=== PATIENT | female | born 1940 | race Caucasian/White ===

== ENCOUNTER 2016-06-30 15:47 | Emergency (ER) | payer MEDICARE, OTHER ==
[2016-06-30 15:54] VITALS: RESP 18
--- NOTE | 2016-06-30 16:34 | ED ---
Lower Extremity Injury HPI - General Chief Complaint: Extremity Injury, Lower Stated Complaint: Knee Swollen Time Seen by Provider: 06/30/16 15:58 Source: patient, RN notes reviewed Mode of arrival: wheelchair Limitations: no limitations - History of Present Illness Initial Comments: 76-year-old female presents emergency Department chief complaint left leg pain. Patient states that her last few days no trauma. Patient's concerned that she 's had prior DVTs, recent fractures. Patient denies any trauma this time. Patient states her left knee, calf region is painful worse with ambulation. Denies any swelling of her knee or redness. Patient denies any chest pain or shortness breath. Patient does not take any blood thinners though she states she takes 81 mg aspirin currently. Patient denies any paresthesias. Denies any back pain. - Related Data Home Medications Medication Instructions Recorded Confirmed Aspirin 81 mg PO DAILY 05/09/14 06/30/16 Enalapril [Vasotec] 20 mg PO DAILY 05/09/14 06/30/16 Simvastatin [Zocor] 40 mg PO HS 05/09/14 06/30/16 Atenolol [Tenormin] 25 mg PO HS 05/24/14 06/30/16 Cholecalciferol [Vitamin D3] 1,000 unit PO HS 02/11/16 06/30/16 Levothyroxine Sodium [Synthroid] 50 mcg PO DAILY 02/11/16 06/30/16 Famotidine 40 mg PO HS 02/12/16 06/30/16 HYDROcodone/APAP 5-325MG [[place] 1 tab PO Q6HR PRN 06/30/16 06/30/16 5-325] amLODIPine [Norvasc] 2.5 mg PO HS 06/30/16 06/30/16 Previous Rx's Medication Instructions Recorded Baclofen [Lioresal] 10 mg PO BID tab 02/15/16 Dextroamphetamine/Amphetamine 20 mg PO BID #60 tablet 02/15/16 [Adderall] Ipratropium-Albuterol Nebulize 3 ml INHALATION RT-QID PRN #0 02/15/16 [Duoneb 0.5 mg-3 mg/3 ml Soln] ampul.neb Allergies Allergy/AdvReac Type Severity Reaction Status Date / Time No Known Allergies Allergy Verified 06/30/16 17:25 Review of Systems ROS Statement: Those systems with pertinent positive or pertinent negative responses have been documented in the HPI. ROS Other: All systems not noted in ROS Statement are negative. Past Medical History Past Medical History: Cancer, Diabetes Mellitus, Deep Vein Thrombosis (DVT), Hyperlipidemia, Hypertension Additional Past Medical History / Comment(s): CLL/SLL, narcolepsy History of Any Multi-Drug Resistant Organisms: None Reported Past Surgical History: Orthopedic Surgery Additional Past Surgical History / Comment(s): right armpit lymph removed 03/01 the size of a golf ball. Past Anesthesia/Blood Transfusion Reactions: No Reported Reaction Past Psychological History: No Psychological Hx Reported Smoking Status: Current every day smoker Past Alcohol Use History: None Reported Past Drug Use History: None Reported - Past Family History Mother Family Medical History: Diabetes Mellitus Father Family Medical History: Cancer Additional Family Medical History / Comment(s): lung cancer. Sister(s) Family Medical History: CVA/TIA (Patient had 4 sisters one of the Sr. at age of 42 from a CVA the other one at the age of 89.) Brother(s) Family Medical History: No Reported History (Patient has one brother no major medical problems) Son(s) Family Medical History: No Reported History (Patient has 4 sons no major medical problems) Daughter(s) Family Medical History: No Reported History (Patient has one daughter no major medical problems) General Exam Limitations: no limitations General appearance: alert, in no apparent distress Head exam: Present: atraumatic, normocephalic, normal inspection Neck exam: Present: normal inspection, full ROM. Absent: tenderness, meningismus, lymphadenopathy Respiratory exam: Present: normal lung sounds bilaterally. Absent: respiratory distress, wheezes, rales, rhonchi, stridor Cardiovascular Exam: Present: regular rate, normal rhythm, normal heart sounds. Absent: systolic murmur, diastolic murmur, rubs, gallop, clicks Extremities exam: Present: other (There is mild tenderness in the proximal region, tenderness the popliteal fossa. Pulses are equal bilaterally of lower extremities 2+ patient has full range of motion of her knee no erythema no warmth no rash) Neurological exam: Present: alert, oriented X3, CN II-XII intact Course Vital Signs 06/30/16 06/30/16 15:52 17:51 Temperature 98.4 F 97.2 F L Pulse Rate 69 68 Respiratory 18 18 Rate Blood Pressure 140/71 165/76 O2 Sat by Pulse 98 95 Oximetry Medical Decision Making - Medical Decision Making 76-year-old female presented for left knee pain. Patient has popliteal cyst on ultrasound. Patient's x-ray does show small joint effusion and medial compartment narrowing. Patient referred to orthopedics. Return parameters were discussed. Disposition Clinical Impression: Left knee pain, Popliteal cyst, Left knee pain Disposition: HOME SELF-CARE Condition: Stable Instructions: Knee Pain (ED), Bakers Cyst (ED) Additional Instructions: Please return to the Emergency Department if symptoms worsen or any other concerns. Referrals: Adnrés Pedro MD [Primary Care Provider] - 1-2 days Federico Campoverde DO [Doctor of Osteopathic Medicine] - 1-2 days Time of Disposition: 18:25
--- NOTE | 2016-06-30 16:45 | XR ---
EXAMINATION TYPE: XR knee complete LT DATE OF EXAM: 06/30/2016 4:22 PM COMPARISON: NONE HISTORY: Pain swelling TECHNIQUE: 3 view left knee FINDINGS: No acute fractures are evident. Minimal joint effusion is not excluded. There may be some m ild narrowing of the medial compartment joint space. IMPRESSION: 1. Suggestion of minimal medial compartment narrowing. 2. Small joint effusion
[2016-06-30 18:42] VITALS: BP 200/91; PULSE 74; TEMP 97.1
--- NOTE | 2016-07-01 07:42 | US ---
EXAMINATION TYPE: US venous doppler duplex LE LT DATE OF EXAM: 06/30/2016 5:02 PM COMPARISON: NONE CLINICAL HISTORY: Pain. SIDE PERFORMED: Left VESSELS IMAGED: External Iliac Vein (EIV) Common Femoral Vein Deep Femoral Vein Greater Saphenous Vein * Femoral Vein Popliteal Vein Small Saphenous Vein * Proximal Calf Veins (* superficial vessels) TECHNOLOGIST IMPRESSION: Left Leg: Appears negative for DVT, 6.0cm popiteal cyst seen IMPRESSION: 1. THIS EXAMINATION IS NEGATIVE FOR DVT IN THE LEFT KNEE. 2. 6 CM POPLITEAL FOSSA CYST.
== END 2016-06-30 18:42 | disposition home or self-care (01) ==
LOC: EC 15:47
DX: M71.22 Synovial cyst of popliteal space [Baker], left knee (principal); I10 Essential (primary) hypertension; E78.5 Hyperlipidemia, unspecified; Z86.718 Personal history of other venous thrombosis and embolism; Z85.6 Personal history of leukemia; F17.200 Nicotine dependence, unspecified, uncomplicated; Z79.82 Long term (current) use of aspirin; Z79.52 Long term (current) use of systemic steroids; Z79.899 Other long term (current) drug therapy
CPT/HCPCS: 99284

== ENCOUNTER 2016-08-05 22:33 | Emergency (ER) | payer MEDICARE, OTHER ==
[2016-08-05 22:44] VITALS: RESP 18
--- NOTE | 2016-08-05 23:30 | XR ---
EXAMINATION TYPE: XR chest 1V portable DATE OF EXAM: 08/05/2016 11:24 PM COMPARISON: 02/13/2016 HISTORY: Dysrhythmia TECHNIQUE: Single frontal view of the chest is obtained. FINDINGS: There is no heart failure nor confluent pneumonic infiltrate. There are no hilar masses. C ostophrenic angles are clear, there is old right-sided healed rib fractures noted. Thoracic aorta is atheromatous. IMPRESSION: No active cardiopulmonary disease. No change.
[2016-08-05 23:57] LABS: Basophils % (A) 1 %; CH 21.3; CHCM 31.9; Eosinophils # (A) 0.1 k/uL (0-0.7); Eosinophils % (A) 2 %; HCT 34.1 % (34.0-46.0); HGB 10.5 gm/dL (11.4-16.0); Hypochromasia Slight; Luc # (Auto) 0.19; Luc % (Auto) 4; Lymphocytes # (A) 1.4 k/uL (1.0-4.8); Lymphocytes % (A) 28 %; MCH 20.8 pg (25.0-35.0); MCV 67.3 fL (80.0-100.0); Mean Platelet Volume 6.9; Microcytosis Marked; Monocytes # (A) 0.2 k/uL (0-1.0); Monocytes % (A) 5 %; Neutrophils # (A) 3.1 k/uL (1.3-7.7); Neutrophils % (A) 61 %; RBC 5.06 m/uL (3.80-5.40); WBC 5.1 k/uL (3.8-10.6); WBC (Perox) 5.25
[2016-08-06 00:01] LABS: Appearance,Urine Clear (Clear); Bilirubin,Urine Negative (Negative); Glucose,Urine (UA) Negative (Negative); Ketones,Urine Negative (Negative); Leukocyte Esterase,Urine Large (Negative); Mucus,Urine Rare /hpf; Nitrite,Urine Negative (Negative); Particle Count 1441; Protein,Urine Negative (Negative); RBC,Urine 3 /hpf (0-5); Specific Gravity,Urine 1.012 (1.001-1.035); Squamous Epithelial Cell,Urine <1 /hpf (0-4); UA Billing (MACRO vs. MICRO) MICRO; Urobilinogen,Urine <2.0 mg/dL (<2.0); WBC,Urine 24 /hpf (0-5)
[2016-08-06 00:04] LABS: Partial Thromboplastin Time 27.3 sec (22.0-30.0); Prothrombin Time 10.2 sec (9.0-12.0)
[2016-08-06 00:21] LABS: ALT 30 U/L (9-52); AST 21 U/L (14-36); Alkaline Phosphatase 63 U/L (38-126); Anion Gap 9 mmol/L; Blood Urea Nitrogen 14 mg/dL (7-17); Calcium 9.1 mg/dL (8.4-10.2); Carbon Dioxide 34 mmol/L (22-30); Chloride 99 mmol/L (98-107); Glucose 92 mg/dL (74-99); Magnesium 1.9 mg/dL (1.6-2.3); Non-African American GFR(MDRD) >60 (>60 ml/min/1.73 sqM); Sodium 142 mmol/L (137-145); Total Bilirubin 0.4 mg/dL (0.2-1.3); Total Protein 6.4 g/dL (6.3-8.2)
[2016-08-06 00:25] VITALS: PULSE 63
[2016-08-06 00:28] LABS: Creatine Kinase 166 U/L (30-135)
[2016-08-06 00:40] LABS: Troponin I <0.012 ng/mL (0.000-0.034)
[2016-08-06] MEDS ORDERED: POTASSIUM CHLORIDE ER 20 MEQ TAB.ER PO STA (00:42)
[2016-08-06 00:57] LABS: Creatine Kinase MB 3.3 ng/mL (0.0-2.4)
--- NOTE | 2016-08-06 01:19 | ED ---
Arrhythmia/Palpitations HPI - General Chief Complaint: Arrhythmia/Palpitations Stated Complaint: high blood pressure Time Seen by Provider: 08/05/16 22:48 Source: patient Mode of arrival: wheelchair Limitations: no limitations - History of Present Illness Initial Comments: This patient is a 76-year-old woman who comes in tonight with the feeling that she was anxious, short of breath, and her blood pressure was higher than is usual for her. She states that when they measured it at home that his systolic blood pressure was over 160. The patient then took her 2 blood pressure medications and came here to be evaluated for the blood pressure. The patient when I interview her states that she is feeling better than she was on arrival and does note that her blood pressure did come down a few points from what it was earlier. Patient is denying any chest pain, diaphoresis, nausea or vomiting. MD Complaint: palpitations -: hour(s) Context: occurred during rest Associated Symptoms: shortness of breath, anxiety - Related Data Home Medications Medication Instructions Recorded Confirmed Aspirin 81 mg PO DAILY 05/09/14 08/05/16 Enalapril [Vasotec] 20 mg PO HS 05/09/14 08/05/16 Simvastatin [Zocor] 40 mg PO HS 05/09/14 08/05/16 Atenolol [Tenormin] 25 mg PO HS 05/24/14 08/05/16 Cholecalciferol [Vitamin D3] 1,000 unit PO DAILY 02/11/16 08/05/16 Levothyroxine Sodium [Synthroid] 50 mcg PO DAILY 02/11/16 08/05/16 Famotidine 40 mg PO DAILY PRN 02/12/16 08/05/16 HYDROcodone/APAP 5-325MG [[employer] 1 tab PO Q6HR PRN 06/30/16 08/05/16 5-325] amLODIPine [Norvasc] 2.5 mg PO HS 06/30/16 08/05/16 Dextroamphetamine/Amphetamine 20 mg PO DAILY 08/05/16 08/05/16 [Adderall] Repaglinide [Prandin] 0.5 mg PO DAILY PRN 08/05/16 08/05/16 Previous Rx's Medication Instructions Recorded Baclofen [Lioresal] 10 mg PO BID tab 02/15/16 Ipratropium-Albuterol Nebulize 3 ml INHALATION RT-QID PRN #0 02/15/16 [Duoneb 0.5 mg-3 mg/3 ml Soln] ampul.neb Potassium Chloride ER [K-Dur 20] 20 meq PO DAILY #10 tab 08/06/16 Allergies Allergy/AdvReac Type Severity Reaction Status Date / Time No Known Allergies Allergy Verified 08/05/16 23:34 Review of Systems ROS Statement: Those systems with pertinent positive or pertinent negative responses have been documented in the HPI. ROS Other: All systems not noted in ROS Statement are negative. Constitutional: Denies: fever, chills Respiratory: Reports: as per HPI, dyspnea. Denies: cough Cardiovascular: Reports: palpitations. Denies: chest pain, orthopnea, edema, syncope Gastrointestinal: Denies: abdominal pain, nausea, vomiting Genitourinary: Denies: dysuria, hematuria Musculoskeletal: Denies: back pain Skin: Denies: rash Neurological: Denies: headache, weakness, numbness Psychiatric: Reports: anxiety Past Medical History Past Medical History: Cancer, Diabetes Mellitus, Deep Vein Thrombosis (DVT), Hyperlipidemia, Hypertension Additional Past Medical History / Comment(s): CLL/SLL, narcolepsy History of Any Multi-Drug Resistant Organisms: None Reported Past Surgical History: Orthopedic Surgery Additional Past Surgical History / Comment(s): right armpit lymph removed 03/01 the size of a golf ball, Past Anesthesia/Blood Transfusion Reactions: No Reported Reaction Past Psychological History: No Psychological Hx Reported Smoking Status: Current every day smoker Past Alcohol Use History: None Reported Past Drug Use History: None Reported - Past Family History Mother Family Medical History: Diabetes Mellitus Father Family Medical History: Cancer Additional Family Medical History / Comment(s): lung cancer. Sister(s) Family Medical History: CVA/TIA (Patient had 4 sisters one of the Sr. at age of 42 from a CVA the other one at the age of 89.) Brother(s) Family Medical History: No Reported History (Patient has one brother no major medical problems) Son(s) Family Medical History: No Reported History (Patient has 4 sons no major medical problems) Daughter(s) Family Medical History: No Reported History (Patient has one daughter no major medical problems) General Exam Limitations: no limitations General appearance: alert, in no apparent distress, anxious Head exam: Present: atraumatic, normocephalic Eye exam: Present: normal appearance. Absent: scleral icterus, conjunctival injection Neck exam: Present: normal inspection Respiratory exam: Present: normal lung sounds bilaterally. Absent: respiratory distress, wheezes, rales, rhonchi, stridor Cardiovascular Exam: Present: regular rate, normal rhythm, normal heart sounds. Absent: systolic murmur, diastolic murmur, rubs, gallop GI/Abdominal exam: Present: soft. Absent: distended, tenderness, guarding, rebound, rigid Extremities exam: Present: normal inspection, normal capillary refill. Absent: pedal edema, calf tenderness Back exam: Present: normal inspection. Absent: CVA tenderness (R), CVA tenderness (L) Neurological exam: Present: alert Psychiatric exam: Present: anxious Skin exam: Present: warm, dry, intact, normal color. Absent: rash Course Vital Signs 08/05/16 08/05/16 08/06/16 22:39 23:15 00:24 Temperature 98.6 F Pulse Rate 69 63 Pulse Rate [ 68 Right Radial] Respiratory 18 18 Rate Blood Pressure 169/76 163/79 O2 Sat by Pulse 97 96 Oximetry 08/06/16 01:25 Temperature 97.0 F L Pulse Rate 63 Pulse Rate [ Right Radial] Respiratory 18 Rate Blood Pressure 159/76 O2 Sat by Pulse 95 Oximetry EKG Findings - EKG Results: EKG: interpreted by ERMD, sinus rhythm, normal axis, normal QRS - Blocks, Gregory, Hypertrophy, ST Abn: AV and intraventricular conduction: 1 AV block Repolarization changes or abnormalities: nonspecific abnormality, ST segment, and/or T wave Medical Decision Making - Medical Decision Making I reevaluated the patient, and discussed the results. The patient is feeling much better and does want to go home. I did offer to keep her for overnight observation and telemetry monitoring but she states that she is now symptom- free and wants to go home. She will return if any of the symptoms recur. He is going to follow-up with her physician thought to have her blood pressure and her potassium rechecked. - Lab Data Result diagrams: 08/05/16 23:10 08/05/16 23:10 Lab Results 08/05/16 08/05/16 08/05/16 Range/Units 23:10 23:10 23:10 WBC 5.1 (3.8-10.6) k/uL RBC 5.06 (3.80-5.40) m/uL Hgb 10.5 L (11.4-16.0) gm/dL Hct 34.1 (34.0-46.0) % MCV 67.3 L (80.0-100.0) fL MCH 20.8 L (25.0-35.0) pg MCHC 31.0 (31.0-37.0) g/dL RDW 16.0 H (11.5-15.5) % Plt Count 220 (150-450) k/uL Neutrophils % 61 % Lymphocytes % 28 % Monocytes % 5 % Eosinophils % 2 % Basophils % 1 % Neutrophils # 3.1 (1.3-7.7) k/uL Lymphocytes # 1.4 (1.0-4.8) k/uL Monocytes # 0.2 (0-1.0) k/uL Eosinophils # 0.1 (0-0.7) k/uL Basophils # 0.0 (0-0.2) k/uL Hypochromasia Slight Microcytosis Marked PT (9.0-12.0) sec INR (<1.1) APTT (22.0-30.0) sec Sodium 142 (137-145) mmol/L Potassium 3.0 L* (3.5-5.1) mmol/L Chloride 99 (98-107) mmol/L Carbon Dioxide 34 H (22-30) mmol/L Anion Gap 9 mmol/L BUN 14 (7-17) mg/dL Creatinine 0.70 (0.52-1.04) mg/dL Est GFR (MDRD) Af Amer >60 (>60 ml/min/1.73 sqM) Est GFR (MDRD) Non-Af >60 (>60 ml/min/1.73 sqM) Glucose 92 (74-99) mg/dL Calcium 9.1 (8.4-10.2) mg/dL Magnesium 1.9 (1.6-2.3) mg/dL Total Bilirubin 0.4 (0.2-1.3) mg/dL AST 21 (14-36) U/L ALT 30 (9-52) U/L Alkaline Phosphatase 63 (38-126) U/L Total Creatine Kinase 166 H (30-135) U/L CK-MB (CK-2) 3.3 H* (0.0-2.4) ng/mL CK-MB (CK-2) Rel Index 2.0 Troponin I <0.012 (0.000-0.034) ng/mL Total Protein 6.4 (6.3-8.2) g/dL Albumin 4.1 (3.5-5.0) g/dL TSH 2.500 (0.465-4.680) mIU/L Urine Color Urine Appearance (Clear) Urine pH (5.0-8.0) Ur Specific Gordon (1.001-1.035) Urine Protein (Negative) Urine Glucose (UA) (Negative) Urine Ketones (Negative) Urine Blood (Negative) Urine Nitrite (Negative) Urine Bilirubin (Negative) Urine Urobilinogen (<2.0) mg/dL Ur Leukocyte Esterase (Negative) Urine RBC (0-5) /hpf Urine WBC (0-5) /hpf Ur Squamous Epith Cells (0-4) /hpf Urine Mucus (None) /hpf 08/05/16 08/05/16 Range/Units 23:10 23:10 WBC (3.8-10.6) k/uL RBC (3.80-5.40) m/uL Hgb (11.4-16.0) gm/dL Hct (34.0-46.0) % MCV (80.0-100.0) fL MCH (25.0-35.0) pg MCHC (31.0-37.0) g/dL RDW (11.5-15.5) % Plt Count (150-450) k/uL Neutrophils % % Lymphocytes % % Monocytes % % Eosinophils % % Basophils % % Neutrophils # (1.3-7.7) k/uL Lymphocytes # (1.0-4.8) k/uL Monocytes # (0-1.0) k/uL Eosinophils # (0-0.7) k/uL Basophils # (0-0.2) k/uL Hypochromasia Microcytosis PT 10.2 (9.0-12.0) sec INR 1.0 (<1.1) APTT 27.3 (22.0-30.0) sec Sodium (137-145) mmol/L Potassium (3.5-5.1) mmol/L Chloride (98-107) mmol/L Carbon Dioxide (22-30) mmol/L Anion Gap mmol/L BUN (7-17) mg/dL Creatinine (0.52-1.04) mg/dL Est GFR (MDRD) Af Amer (>60 ml/min/1.73 sqM) Est GFR (MDRD) Non-Af (>60 ml/min/1.73 sqM) Glucose (74-99) mg/dL Calcium (8.4-10.2) mg/dL Magnesium (1.6-2.3) mg/dL Total Bilirubin (0.2-1.3) mg/dL AST (14-36) U/L ALT (9-52) U/L Alkaline Phosphatase (38-126) U/L Total Creatine Kinase (30-135) U/L CK-MB (CK-2) (0.0-2.4) ng/mL CK-MB (CK-2) Rel Index Troponin I (0.000-0.034) ng/mL Total Protein (6.3-8.2) g/dL Albumin (3.5-5.0) g/dL TSH (0.465-4.680) mIU/L Urine Color Yellow Urine Appearance Clear (Clear) Urine pH 6.0 (5.0-8.0) Ur Specific [place] 1.012 (1.001-1.035) Urine Protein Negative (Negative) Urine Glucose (UA) Negative (Negative) Urine Ketones Negative (Negative) Urine Blood Trace H (Negative) Urine Nitrite Negative (Negative) Urine Bilirubin Negative (Negative) Urine Urobilinogen <2.0 (<2.0) mg/dL Ur Leukocyte Esterase Large H (Negative) Urine RBC 3 (0-5) /hpf Urine WBC 24 H (0-5) /hpf Ur Squamous Epith Cells <1 (0-4) /hpf Urine Mucus Rare H (None) /hpf Disposition Clinical Impression: Hypokalemia, Hypertension Disposition: HOME SELF-CARE Condition: Good Instructions: Palpitations (ED), Hypertension (ED), Hypokalemia (ED) Prescriptions: Potassium Chloride ER [K-Dur 20] 20 meq PO DAILY #10 tab Referrals: Andrés Pedro MD [Primary Care Provider] - 1-2 days
[2016-08-06 01:33] VITALS: BP 159/76; TEMP 97
== END 2016-08-06 01:35 | disposition home or self-care (01) ==
LOC: EC 22:33
DX: E87.6 Hypokalemia (principal); I10 Essential (primary) hypertension; Z86.718 Personal history of other venous thrombosis and embolism; E78.5 Hyperlipidemia, unspecified; E11.9 Type 2 diabetes mellitus without complications; C91.10 Chronic lymphocytic leukemia of B-cell type not having achieved remission; Z79.82 Long term (current) use of aspirin; Z79.899 Other long term (current) drug therapy; F17.200 Nicotine dependence, unspecified, uncomplicated
CPT/HCPCS: 36415; 71010; 80053; 81001; 82550; 82553; 83735; 84443; 84484; 85025; 85610; 85730; 93005; 99285

== ENCOUNTER → 2019-04-16 | Outpatient (CLI) | payer MEDICARE, OTHER ==
[2019-04-16 13:37] LABS: African American GFR (CKD) >90 (>60 ml/min/1.73 sqM); Blood Urea Nitrogen 17 mg/dL (7-17); Non-African American GFR(CKD) 79 (>60 ml/min/1.73 sqM)
--- NOTE | 2019-04-16 14:32 | CT ---
EXAMINATION TYPE: CT ChestAbdPelvis w con DATE OF EXAM: 04/16/2019 COMPARISON: 10/19/1950 HISTORY: Luekemia CT DLP: 1329.1 mGycm CONTRAST: CT scan of the chest, abdomen and pelvis is performed with Oral Contrast and with IV Contrast, patien t injected with 100 mL of Isovue 300. CT Chest: LUNGS: The lungs are clear and free of infiltrate or atelectasis. No pulmonary nodule or mass is det ected. No pleural effusion or CT evidence of interstitial lung disease. MEDIASTINUM: Ascending thoracic aortic aneurysm of 4.1 cm AP dimension. The heart is not enlarged. N o evidence for mediastinal mass or adenopathy. HILAR STRUCTURES: No evidence for mass. No hilar adenopathy is appreciated. OTHER: No axillary adenopathy. CONTRAST CT ABDOMEN AND PELVIS FINDINGS: LIVER/GB: Mild No calcified gallstones. No space occupying hepatic lesion. Biliary tree is of apolinar l caliber. PANCREAS: No inflammation. No distinct mass. SPLEEN: No splenic enlargement. No lesion seen. ADRENALS: Stable adrenal adenoma measuring 1.9 cm left adrenal gland. No thickening. KIDNEYS/BLADDER: No hydronephrosis. No nephrolithiasis. No distinct renal mass. BOWEL: Normal appendix. Normal bowel caliber. No inflammation. GENITAL ORGANS: No gross abnormality. LYMPH NODES: No greater than 1cm abdominal or pelvic lymph nodes are appreciated. AORTA: No significant abnormality. OSSEOUS STRUCTURES: No significant abnormality is seen. OTHER: No significant additional abnormality is seen. IMPRESSION: 1. No evidence for adenopathy. 2. Stable left adrenal adenoma. 3. Ascending aortic aneurysm as noted.
== END | disposition home or self-care (01) ==
LOC: RADCTMAIN 12:29
PROVIDERS: ATTEND Internal Medicine Hematology & Oncology
DX: Z03.89 Encounter for observation for other suspected diseases and conditions ruled out (principal); C91.10 Chronic lymphocytic leukemia of B-cell type not having achieved remission; D35.02 Benign neoplasm of left adrenal gland; I71.2 Thoracic aortic aneurysm, without rupture
CPT/HCPCS: 36415; 71260; 74177; 82565; 84520

== ENCOUNTER 2019-06-27 14:12 | Inpatient (IN) | payer MEDICARE, OTHER ==
[2019-06-27] MEDS ORDERED: methylPREDNISolone SOD SUCCI 125 MG/2 ML VIAL IV STA (14:33)
[2019-06-27] MEDS ORDERED: IPRATROPIUM 0.5 MG/2.5 ML NEBU INHALATION STA (14:33)
[2019-06-27] MEDS ORDERED: ALBUTEROL NEBULIZED 2.5 MG/3 ML INHALATION STA (14:33)
[2019-06-27 14:49] LABS: Basophils % (A) 2 %; Eosinophils # (A) 0.2 k/uL (0-0.7); Eosinophils % (A) 2 %; HCT 38.6 % (34.0-46.0); HGB 11.7 gm/dL (11.4-16.0); Hypochromasia Slight; Lymphocytes # (A) 0.9 k/uL (1.0-4.8); Lymphocytes % (A) 13 %; MCH 20.9 pg (25.0-35.0); MCHC 30.3 g/dL (31.0-37.0); Mean Platelet Volume 7.2; Microcytosis Moderate; Monocytes # (A) 0.4 k/uL (0-1.0); Monocytes % (A) 5 %; Neutrophils # (A) 5.6 k/uL (1.3-7.7); Neutrophils % (A) 77 %; Platelet Count 218 k/uL (150-450); RDW 13.8 % (11.5-15.5); WBC 7.3 k/uL (3.8-10.6)
[2019-06-27 14:50] LABS: Basophils # (A) 0.1 k/uL (0-0.2)
--- NOTE | 2019-06-27 14:55 | ED ---
General Adult HPI - General Chief complaint: Shortness of Breath Stated complaint: JORGE Time Seen by Provider: 06/27/19 14:26 Source: patient, RN notes reviewed, old records reviewed Mode of arrival: wheelchair Limitations: no limitations - History of Present Illness Initial comments: 79-year-old female presenting for evaluation of cough and dyspnea. Patient has 40 year pack history, no diagnosis of COPD. She's had 4 days of cough and dyspnea. She states that on Friday which was 4 days prior she developed myalgias and generalized weakness. Chest subjective fever and chills. She's had nasal congestion. Denies central chest pain. She's had nausea with no vomiting. No lower extremity pain or swelling. No history DVT or PE. No history of CAD. - Related Data Home Medications Medication Instructions Recorded Confirmed Aspirin 81 mg PO DAILY 05/09/14 08/05/16 Enalapril [Vasotec] 20 mg PO HS 05/09/14 08/05/16 Simvastatin [Zocor] 40 mg PO HS 05/09/14 08/05/16 Atenolol [Tenormin] 25 mg PO HS 05/24/14 08/05/16 Cholecalciferol [Vitamin D3 (25 1,000 unit PO DAILY 02/11/16 08/05/16 Mcg = 1000 Iu)] Levothyroxine Sodium [Synthroid] 50 mcg PO DAILY 02/11/16 08/05/16 Famotidine 40 mg PO DAILY PRN 02/12/16 08/05/16 HYDROcodone/APAP 5-325MG [[place] 1 tab PO Q6HR PRN 06/30/16 08/05/16 5-325] amLODIPine [Norvasc] 2.5 mg PO HS 06/30/16 08/05/16 Dextroamphetamine/Amphetamine 20 mg PO DAILY 08/05/16 08/05/16 [Adderall] Repaglinide [Prandin] 0.5 mg PO DAILY PRN 08/05/16 08/05/16 Previous Rx's Medication Instructions Recorded Baclofen [Lioresal] 10 mg PO BID tab 02/15/16 Ipratropium-Albuterol Nebulize 3 ml INHALATION RT-QID PRN #0 02/15/16 [Duoneb 0.5 mg-3 mg/3 ml Soln] ampul.neb Potassium Chloride ER [K-Dur 20] 20 meq PO DAILY #10 tab 08/06/16 Allergies Allergy/AdvReac Type Severity Reaction Status Date / Time No Known Allergies Allergy Verified 06/27/19 14:19 Review of Systems ROS Statement: Those systems with pertinent positive or pertinent negative responses have been documented in the HPI. ROS Other: All systems not noted in ROS Statement are negative. Past Medical History Past Medical History: Cancer, Diabetes Mellitus, Deep Vein Thrombosis (DVT), Hyperlipidemia, Hypertension Additional Past Medical History / Comment(s): CLL/SLL, narcolepsy History of Any Multi-Drug Resistant Organisms: None Reported Past Surgical History: Orthopedic Surgery Additional Past Surgical History / Comment(s): right armpit lymph removed 03/01 the size of a golf ball, Past Anesthesia/Blood Transfusion Reactions: No Reported Reaction Past Psychological History: No Psychological Hx Reported Smoking Status: Current every day smoker Past Alcohol Use History: None Reported Past Drug Use History: None Reported - Past Family History Mother Family Medical History: Diabetes Mellitus Father Family Medical History: Cancer Additional Family Medical History / Comment(s): lung cancer. Sister(s) Family Medical History: CVA/TIA (Patient had 4 sisters one of the Sr. at age of 42 from a CVA the other one at the age of 89.) Brother(s) Family Medical History: No Reported History (Patient has one brother no major medical problems) Son(s) Family Medical History: No Reported History (Patient has 4 sons no major medical problems) Daughter(s) Family Medical History: No Reported History (Patient has one daughter no major medical problems) General Exam Limitations: no limitations General appearance: alert, in no apparent distress Head exam: Present: atraumatic, normocephalic Eye exam: Present: normal appearance, PERRL ENT exam: Present: normal exam Neck exam: Present: normal inspection. Absent: tenderness, meningismus Respiratory exam: Present: respiratory distress, wheezes, rhonchi, decreased breath sounds Cardiovascular Exam: Present: regular rate, normal rhythm GI/Abdominal exam: Present: soft. Absent: distended, tenderness, guarding Extremities exam: Present: normal inspection, normal capillary refill. Absent: pedal edema, calf tenderness Neurological exam: Present: alert, oriented X3, CN II-XII intact. Absent: motor sensory deficit Psychiatric exam: Present: normal affect, normal mood Skin exam: Present: warm, dry, intact. Absent: cyanosis, diaphoretic Course Vital Signs 06/27/19 06/27/19 06/27/19 14:14 15:00 15:30 Temperature 98.1 F Pulse Rate 95 94 90 Respiratory 18 22 Rate Blood Pressure 129/77 162/82 O2 Sat by Pulse 89 L 95 Oximetry EKG Findings - EKG Comments: EKG Findings:: EKG: Normal sinus rhythm, left axis deviation, no ST segment elevation, artifact in lead V3 and V4, rate of 82, MN interval 180, QRS duration 94, QTC 464 Medical Decision Making - Medical Decision Making 79-year-old female presenting with 4 days of cough and dyspnea, myalgias. 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 She has a chest x-ray which is negative for focal pneumonia, normal white blood cell count, stable hemoglobin, electrolytes do reveal hypokalemia which is replaced. She does not have a formal diagnosis COPD but I suspect this patient does have COPD with a 40 year pack history. She is initially hypoxic in the high 80s. She require supplemental oxygen. She is treated with a beetle, Atrovent, steroids. She will be admitted for COPD exacerbation. I discussed case with the admitting physician Dr. Cho. - Lab Data Result diagrams: 06/27/19 14:39 06/27/19 14:39 Lab Results 06/27/19 06/27/19 06/27/19 Range/Units 14:39 14:39 14:39 WBC 7.3 (3.8-10.6) k/uL RBC 5.60 H (3.80-5.40) m/uL Hgb 11.7 (11.4-16.0) gm/dL Hct 38.6 (34.0-46.0) % MCV 69.0 L (80.0-100.0) fL MCH 20.9 L (25.0-35.0) pg MCHC 30.3 L (31.0-37.0) g/dL RDW 13.8 (11.5-15.5) % Plt Count 218 (150-450) k/uL Neutrophils % 77 % Lymphocytes % 13 % Monocytes % 5 % Eosinophils % 2 % Basophils % 2 % Neutrophils # 5.6 (1.3-7.7) k/uL Lymphocytes # 0.9 L (1.0-4.8) k/uL Monocytes # 0.4 (0-1.0) k/uL Eosinophils # 0.2 (0-0.7) k/uL Basophils # 0.1 (0-0.2) k/uL Hypochromasia Slight Microcytosis Moderate Sodium 135 L (137-145) mmol/L Potassium 3.0 L (3.5-5.1) mmol/L Chloride 94 L (98-107) mmol/L Carbon Dioxide 34 H (22-30) mmol/L Anion Gap 7 mmol/L BUN 16 (7-17) mg/dL Creatinine 0.87 (0.52-1.04) mg/dL Est GFR (CKD-EPI)AfAm 73 (>60 ml/min/1.73 sqM) Est GFR (CKD-EPI)NonAf 63 (>60 ml/min/1.73 sqM) Glucose 158 H (74-99) mg/dL Plasma Lactic Acid Jose Rafael 1.2 (0.7-2.0) mmol/L Calcium 8.8 (8.4-10.2) mg/dL Magnesium 1.8 (1.6-2.3) mg/dL Total Bilirubin 0.5 (0.2-1.3) mg/dL AST 66 H (14-36) U/L ALT 40 H (4-34) U/L Alkaline Phosphatase 53 (38-126) U/L NT-Pro-B Natriuret Pep pg/mL Total Protein 6.5 (6.3-8.2) g/dL Albumin 3.9 (3.5-5.0) g/dL Influenza Type A RNA (Not Detectd) Influenza Type B (PCR) (Not Detectd) 06/27/19 06/27/19 Range/Units 14:39 14:39 WBC (3.8-10.6) k/uL RBC (3.80-5.40) m/uL Hgb (11.4-16.0) gm/dL Hct (34.0-46.0) % MCV (80.0-100.0) fL MCH (25.0-35.0) pg MCHC (31.0-37.0) g/dL RDW (11.5-15.5) % Plt Count (150-450) k/uL Neutrophils % % Lymphocytes % % Monocytes % % Eosinophils % % Basophils % % Neutrophils # (1.3-7.7) k/uL Lymphocytes # (1.0-4.8) k/uL Monocytes # (0-1.0) k/uL Eosinophils # (0-0.7) k/uL Basophils # (0-0.2) k/uL Hypochromasia Microcytosis Sodium (137-145) mmol/L Potassium (3.5-5.1) mmol/L Chloride (98-107) mmol/L Carbon Dioxide (22-30) mmol/L Anion Gap mmol/L BUN (7-17) mg/dL Creatinine (0.52-1.04) mg/dL Est GFR (CKD-EPI)AfAm (>60 ml/min/1.73 sqM) Est GFR (CKD-EPI)NonAf (>60 ml/min/1.73 sqM) Glucose (74-99) mg/dL Plasma Lactic Acid Jose Rafael (0.7-2.0) mmol/L Calcium (8.4-10.2) mg/dL Magnesium (1.6-2.3) mg/dL Total Bilirubin (0.2-1.3) mg/dL AST (14-36) U/L ALT (4-34) U/L Alkaline Phosphatase (38-126) U/L NT-Pro-B Natriuret Pep 83 pg/mL Total Protein (6.3-8.2) g/dL Albumin (3.5-5.0) g/dL Influenza Type A RNA Detected H (Not Detectd) Influenza Type B (PCR) Not Detected (Not Detectd) Critical Care Time Critical Care Time: Yes Total Critical Care Time: 35 Disposition Clinical Impression: Acute exacerbation of chronic obstructive pulmonary disease, Influenza Disposition: ADMITTED IP TO THIS HOSP Condition: Stable Is patient prescribed a controlled substance at d/c from ED?: No Referrals: Federico Bell DO [Primary Care Provider] - 1-2 days Decision to Admit Reason: Admit from EC Decision Date: 06/27/19 Decision Time: 16:26
[2019-06-27 14:58] LABS: Albumin 3.9 g/dL (3.5-5.0); Calcium 8.8 mg/dL (8.4-10.2); Magnesium 1.8 mg/dL (1.6-2.3); Total Bilirubin 0.5 mg/dL (0.2-1.3); Total Protein 6.5 g/dL (6.3-8.2)
--- NOTE | 2019-06-27 15:42 | XR ---
EXAMINATION TYPE: XR chest 2V DATE OF EXAM: 06/27/2019 COMPARISON: 08/05/2016 HISTORY: Difficulty breathing TECHNIQUE: Frontal and lateral views of the chest are obtained. FINDINGS: There is right hemidiaphragm elevation as seen on the prior. No new focal consolidation, p leural effusion or pneumothorax. Chronic interstitial prominence. Calcified right apical plaques. Sta ble granuloma in the right lateral lung from 2017. Cardiomediastinal silhouette is upper limits of no rmal and stable. Diffuse osseous demineralization and moderate degenerative change of the spine. IMPRESSION: Chronic changes with no acute cardiopulmonary process.
[2019-06-27] MEDS ORDERED: IPRATROPIUM-ALBUTEROL 3 ML NEB INHALATION PRN (16:22)
[2019-06-27] MEDS ORDERED: POTASSIUM CHLORIDE ER 20 MEQ TAB.ER PO STA (16:22)
[2019-06-27] MEDS: SODIUM CHLORIDE 0.9% 1,000 ML IV SCH (16:30)
[2019-06-27] MEDS: POTASSIUM CHLORIDE 10 MEQ in WATER FOR INJECTION 1 100ML.BAG IVPB SCH ×4 (16:34→23:32)
[2019-06-27] MEDS ORDERED: FAMOTIDINE 20 MG TAB PO PRN (20:09)
[2019-06-27] MEDS ORDERED: Phosphorus Replacement Protoco 1 EACH MISC MISCELLANE PRN (20:11)
[2019-06-27] MEDS ORDERED: ACETAMINOPHEN TAB 500 MG TAB PO PRN (20:12)
[2019-06-27] MEDS ORDERED: ALPRAZolam 0.25 MG TAB PO PRN (20:12)
[2019-06-27] MEDS ORDERED: HYDROcodone/APAP 5-325MG 1 EACH TAB PO PRN (20:12)
[2019-06-27] MEDS: IPRATROPIUM-ALBUTEROL 3 ML NEB INHALATION SCH (20:50)
[2019-06-27] MEDS: methylPREDNISolone SOD SUCCI 125 MG/2 ML VIAL IV SCH (21:30)
[2019-06-27 21:31] LABS: Glucose,Whole Blood 383 mg/dL (75-99)
[2019-06-27 21:31] LABS: Glucose,Whole Blood 414 mg/dL (75-99)
[2019-06-27] MEDS: ATORVASTATIN 20 MG TAB PO SCH (21:31)
[2019-06-27] MEDS: ATENOLOL 25 MG TAB PO SCH (21:32)
[2019-06-27] MEDS: INSULIN ASPART (NovoLOG) 100 UNIT/ML VIAL SQ SCH (21:32)
[2019-06-27] MEDS: OSELTAMIVIR 75 MG CAP PO SCH (21:32)
[2019-06-27] MEDS: NICOTINE 14MG/24HR PATCH TRANSDERM SCH (21:33)
[2019-06-27] MEDS: HEPARIN SODIUM,PORCINE 5,000 UNIT/ML 1 ML VIAL SQ SCH (23:27)
[2019-06-28] MEDS: methylPREDNISolone SOD SUCCI 125 MG/2 ML VIAL IV SCH ×4 (01:04→17:41)
[2019-06-28] MEDS: LEVOTHYROXINE 50 MCG TAB PO SCH (05:44)
[2019-06-28] MEDS: SODIUM CHLORIDE 0.9% 1,000 ML IV SCH ×2 (05:44→21:17)
--- NOTE | 2019-06-28 06:04 | HP ---
HISTORY AND PHYSICAL DATE OF SERVICE: 06/27/2019 CHIEF COMPLAINT: Shortness of breath. HISTORY OF PRESENT ILLNESS: This 79-year-old woman with a past medical history of multiple medical problems including history of diabetes, history of DVT, hypertension, hyperlipidemia, history of chronic lymphoid leukemia, history of narcolepsy, being followed by Dr. Federico Bell in the outpatient is not feeling well for the past several days. The patient is complaining of increased shortness of breath and cough and as well as some chills also. The patient had 40 pack years of smoking history but never been diagnosis with COPD. The patient also has myalgia and generalized weakness. Illness came so acutely that the patient felt extremely sick and the patient was taken to [facility] and admitted for further evaluation and treatment. The patient's is also sick apparently. Currently the patient is influenza A positive. The patient apparently took the flu shot last year in February. The patient also has multiple electrolyte abnormalities. There is no history of any fever or rigors. No history of headache, loss of consciousness or seizures at this time. PAST MEDICAL HISTORY: History of diabetes, DVT, hypertension, hyperlipidemia, chronic lymphatic leukemia, history of DJD, history of nicotine dependence. HOME MEDICATIONS: 1. Vitamin D3 1000 units daily. 2. Zocor 40 mg q.h.s. 3. Pepcid 40 mg p.o. daily. 4. Metformin 500 mg p.o. daily. 5. Norvasc 5 mg p.o. daily. 6. Cozaar 50 mg p.o. daily. 7. Synthroid 50 mcg p.o. daily. 8. Adderall 20 mg p.o. b.i.d. 9. Aspirin 81 mg p.o. 10.Tenormin 25 mg q.h.s. ALLERGIES: None. FAMILY HISTORY: History of diabetes mellitus, lung cancer in the family. SOCIAL HISTORY: History of smoking. No history of alcohol intake. REVIEW OF SYSTEMS: ENT: No history of diminished hearing or vision. CARDIOVASCULAR: No angina or palpitations. RESPIRATORY: As mentioned earlier. GI: As mentioned earlier. : No dysuria. NERVOUS SYSTEM: No numbness or weakness. ALLERGY/IMMUNOLOGY: No asthma or hayfever. MUSCULOSKELETAL: As mentioned earlier. HEMATOLOGY/ONCOLOGY: Negative. ENDOCRINE: No history of hypothyroidism. SKIN: Negative. CONSTITUTIONAL: As mentioned earlier. PSYCHIATRY: As mentioned earlier. PHYSICAL EXAMINATION: Alert and oriented x3. Pulse 85, blood pressure 158/74, respiration 18, temperature 98.1, pulse ox 94% on 2 L. HEENT: Conjunctivae clear. Oral mucosa moist. NECK: No jugular venous distention. No lymph node enlargement. RESPIRATORY: Breath sounds diminished at the bases. Scattered rhonchi and crackles. Expiratory wheezing also present. HEART: S1 and S2, muffled. ABDOMEN: Soft, nontender. No mass palpable. LEGS: No edema, no swelling. NERVOUS: Higher functions as mentioned earlier. Moves all four limbs. No focal motor or sensory deficits. LYMPHATICS: No lymph node in neck or axilla. SKIN: No rash. JOINTS: No active deforming arthropathy. LABS: At this time shows WBC 7.2, hemoglobin 7.7, sodium 132, potassium 3 and glucose 158. ASSESSMENT: 1. Chronic obstructive pulmonary disease acute exacerbation with acute purulent tracheobronchitis or bronchopneumonia, present on admission with acute hypoxic respiratory failure. present on admission. 2. Acute influenza A. 3. Hyponatremia. 4. Hypokalemia. 5. Increased AST ALT. mild hepatitis. 6. Diabetes mellitus type 2. 7. History of deep venous thrombosis. 8. History of hyperlipidemia. 9. History of hypertension. 10.History of chronic lymphatic leukemia. 11.History of narcolepsy. 12.History of degenerative joint disease. 13.History of nicotine dependence, continued ongoing. RECOMMENDATIONS AND DISCUSSION: In this 79-year-old woman who presented with multiple complex medical issues, we will monitor the patient closely, continue the current medications, symptomatic treatment. I would optimize bronchodilator treatment, empiric antibiotics, steroids and I would recommend pulmonary consultation. Otherwise, antiviral medications, antibiotics, resume the home medications, DVT prophylaxis and proton pump inhibitors. Overall prognosis is extremely guarded because of multiple complex medical issues. We will monitor the blood sugars also. MMODL / IJN: [id number] /
[2019-06-28] MEDS: FORMOTEROL FUMARATE 20 MCG/2 ML NEBU INHALATION SCH ×2 (07:03→21:59)
[2019-06-28] MEDS: BUDESONIDE 1 MG/2 ML NEBU INHALATION SCH ×2 (07:03→21:59)
[2019-06-28] MEDS: IPRATROPIUM-ALBUTEROL 3 ML NEB INHALATION SCH ×4 (07:03→21:59)
[2019-06-28 07:04] LABS: Glucose,Whole Blood 357 mg/dL (75-99)
[2019-06-28 08:26] LABS: Basophils % (A) 0 %; Eosinophils % (A) 0 %; HCT 36.6 % (34.0-46.0); HGB 10.8 gm/dL (11.4-16.0); Hypochromasia Marked; Lymphocytes # (A) 0.3 k/uL (1.0-4.8); Lymphocytes % (A) 8 %; MCH 20.9 pg (25.0-35.0); MCHC 29.4 g/dL (31.0-37.0); MCV 71.1 fL (80.0-100.0); Mean Platelet Volume 7.6; Microcytosis Moderate; Monocytes # (A) 0.1 k/uL (0-1.0); Monocytes % (A) 3 %; Neutrophils # (A) 3.7 k/uL (1.3-7.7); Neutrophils % (A) 88 %; Platelet Count 219 k/uL (150-450); RBC 5.15 m/uL (3.80-5.40); RDW 13.8 % (11.5-15.5); WBC 4.2 k/uL (3.8-10.6)
[2019-06-28 08:48] LABS: Potassium 4.1 mmol/L (3.5-5.1)
[2019-06-28] MEDS ORDERED: metFORMIN 500 MG TAB PO SCH (09:00)
[2019-06-28] MEDS: CHOLECALCIFEROL 1,000 UNIT TAB PO SCH (09:04)
[2019-06-28] MEDS: OSELTAMIVIR 75 MG CAP PO SCH (09:04)
[2019-06-28] MEDS: amLODIPine 5 MG TAB PO SCH (09:04)
[2019-06-28] MEDS: LOSARTAN 50 MG TAB PO SCH (09:04)
[2019-06-28] MEDS: INSULIN ASPART (NovoLOG) 100 UNIT/ML VIAL SQ SCH ×4 (09:05→21:16)
[2019-06-28] MEDS: MULTIVITAMINS, THERA 1 EACH TAB PO SCH (09:05)
[2019-06-28] MEDS: ASPIRIN 81 MG PO SCH (09:05)
[2019-06-28] MEDS: NICOTINE 14MG/24HR PATCH TRANSDERM SCH (09:05)
[2019-06-28] MEDS: HEPARIN SODIUM,PORCINE 5,000 UNIT/ML 1 ML VIAL SQ SCH ×2 (09:05→21:17)
[2019-06-28] MEDS: NON FORMULARY DRUG (Dextroamphetamine/Amphetamine [Adderall] 20 MG) PO SCH ×2 (09:10→16:12)
[2019-06-28 11:39] LABS: Glucose,Whole Blood 325 mg/dL (75-99)
[2019-06-28] MEDS ORDERED: FAMOTIDINE 20 MG TAB PO PRN (12:38)
[2019-06-28 16:51] LABS: Glucose,Whole Blood 302 mg/dL (75-99)
--- NOTE | 2019-06-28 19:58 | PN ---
PROGRESS NOTE DATE OF SERVICE: 06/28/2019 This 79-year-old woman who was admitted with shortness of breath had features of COPD, acute exacerbation. The patient also had acute influenza A. The patient is being closely monitored. The patient is still complaining of shortness of breath and cough and sputum. Past medical history reviewed. REVIEW OF SYSTEMS: CARDIOVASCULAR SYSTEM: As mentioned earlier. RESPIRATORY SYSTEM: As mentioned earlier. GI: As mentioned earlier. : No dysuria or retention. NERVOUS SYSTEM: No numbness, weakness. CURRENT MEDICATIONS: Reviewed. They include: 1. Tylenol p.r.n. 2. [place] 5 mg q.6 p.r.n. 3. DuoNeb q.i.d. and p.r.n. 4. Xanax 0.25 t.i.d. 5. Norvasc 5 mg p.o. daily. 6. Aspirin 81 mg daily. 7. Tenormin 25 mg p.o. daily. 8. Lipitor 20 mg at bedtime. 9. Zithromax 500 mg p.o. daily. 10.Pulmicort. Other medications are reviewed. Doses are reviewed. PHYSICAL EXAMINATION: Patient is alert and oriented x2. Pulse 80, blood pressure 142/69, respirations 16, temperature 97.4, pulse ox 96% on room air. HEENT: Conjunctivae normal. NECK: No jugular venous distention. CARDIOVASCULAR SYSTEM: S1, S2 muffled. RESPIRATORY SYSTEM: Breath sounds diminished at the bases. Bilateral scattered rhonchi and crackles. Expiratory wheezing also present. ABDOMEN: Soft, non-tender. No mass palpable. LEGS: No edema. No swelling. NERVOUS SYSTEM: Higher functions as mentioned earlier. Moves all 4 limbs. No focal motor or sensory deficit. LYMPHATICS: No lymph node palpable in neck, axillae or groin. SKIN: No ulcer, rash, bleeding. JOINTS: No active deforming arthropathy. LABS: Labs at this time show WBC 4.2, hemoglobin 10.9, sodium 135, creatinine 1.87. Glucose elevated. Influenza A is positive. ASSESSMENT: 1. Chronic obstructive pulmonary disease, acute exacerbation, with acute purulent tracheobronchitis and acute bronchopneumonia, possibly Gram-negative, present on admission, with acute hypoxic respiratory failure, present on admission. 2. Acute influenza A. 3. Renal failure, acute, prerenal acute tubular necrosis. 4. Hyponatremia. 5. Hypokalemia. 6. Increased AST, ALT; mild hepatitis, possibly secondary to influenza. 7. Diabetes mellitus, type 2. 8. History of deep vein thrombosis. 9. Hyperlipidemia. 10.Hypertension. 11.History of chronic leukemia. 12.History of narcolepsy. 13.History of degenerative joint disease. 14.History of nicotine dependence, continued ongoing. RECOMMENDATIONS AND DISCUSSION: In this 79-year-old woman who presented with multiple complex medical issues, we will monitor the patient closely, continue the current medications, continue symptomatic treatment, continue the bronchodilators. Continue the empiric antibiotics. Continue with Tamiflu. Continue with IV steroids. Monitor blood sugars closely. I would recommend continuing the IV fluids. Monitor creatinine closely. Avoid nephrotoxic medications. Guarded prognosis because of multiple complex medical issues. Further recommendations to follow. See orders for further details. MMODL / IJN: [id number] / MTDD
--- NOTE | 2019-06-28 21:04 | CONS ---
CONSULTATION PULMONARY/CRITICAL CARE CONSULTATION: DATE OF SERVICE: 06/28/2019 REASON FOR CONSULTATION: Shortness of breath. This is an 79-year-old female who presented to the emergency room at 2:12 in the afternoon on June 27. She came in with complaints of shortness of breath and cough. The patient has a history of significant COPD. I saw the patient last in 2015. At that time she had fallen while walking her dog and sustained a pelvic fracture. I do not see her in the office. She admits to 4 days of not feeling well. Those symptoms included shortness of breath with exertion and cough. The cough was somewhat productive of a small amount of clear to slightly yellow phlegm. She denied any fever or chills. There were no muscle aches or joint aches. She had some nasal congestion, some mild nasal drainage. She denies any chest pain or chest discomfort. There was no nausea, vomiting or diarrhea. There were no genitourinary complaints. The patient apparently tested positive for influenza A as well. Currently she is feeling much better. She still is very short of breath. As mentioned, she is coughing. She denies any fever or chills. There is no sore throat or earache. HOME MEDICATIONS: Her home medications include aspirin, Vasotec, Zocor, Tenormin, vitamin D3, Synthroid, famotidine, [place], amlodipine, Adderall, Prandin, baclofen, DuoNeb and potassium. ALLERGIES: DENIED. PAST MEDICAL HISTORY: Positive for diabetes, CLL, deep venous thrombosis, hyperlipidemia, hypertension and probable COPD. SURGICAL HISTORY: Surgical history includes lymph node removal from the right axilla and some other minor procedures. SOCIAL HISTORY: Positive for ongoing tobacco use. She has been smoking for 60 years. She denies any alcohol use or illicit drug use. FAMILY HISTORY: Positive for mother with diabetes, father with lung cancer, a sister who is from a CVA, a brother who is healthy, a son who is healthy, and a daughter who is healthy. REVIEW OF SYSTEMS: CONSTITUTIONAL: Negative. NEUROLOGIC: Negative. HEENT: Negative. CARDIOVASCULAR: Negative. PULMONARY: Shortness of breath, chest congestion, chest tightness, coughing, wheezing, and yellow phlegm production. GI: Negative. : Negative. RHEUMATOLOGIC: Negative. IMMUNOLOGIC: Negative. ENDOCRINOLOGIC: Negative. DERMATOLOGIC: Negative. PHYSICAL EXAMINATION: VITAL SIGNS: Current vital signs are reviewed. Temperature is 96.5, heart rate 65, respiratory rate 24, blood pressure 144/71, mean 95, room-air saturation 95%. GENERAL APPEARANCE: Appears in no acute distress. HEENT EXAMINATION: Grossly unremarkable. Mucous membranes are moist. No oral lesions. NECK: Supple. Full range of motion. No adenopathy or thyromegaly. Neck veins are flat. CARDIOVASCULAR EXAMINATION: Regular rhythm and rate. Heart rate in mid 60s. S1, S2 normal. There is no murmur. No S3, S4. LUNGS: Coarse inspiratory and expiratory rhonchi and wheezes. There is prolongation on forced maneuver. Adventitious lung sounds are more prominent on forced maneuver. No crackles. Breath sounds equal. ABDOMEN: Soft. Bowel sounds are heard. EXTREMITIES: Intact. No cyanosis, clubbing or edema. SKIN: Without rash. NEUROLOGIC: Neurologic examination is brief but nonfocal. LABS/IMAGING: Reviewed. White count 4.2, hemoglobin 10.8, hematocrit 36.6, platelet count 219,000. Sodium 135, potassium 4.1, chloride 96, CO2 25. Anion gap is 14. BUN and creatinine were 31 and 1.87. The rest of the labs look pretty good. Influenza A test was positive. Chest x-ray done yesterday in the emergency room shows changes of COPD. Nothing acute noted on chest x-ray. Microbiology is negative. CURRENT MEDICATIONS: Medications are reviewed. From the pulmonary standpoint, the patient is on Pulmicort, formoterol, DuoNeb, Solu-Medrol and Tamiflu. The patient is also on Rocephin. That can be discontinued in favor of an oral antibiotic. ASSESSMENT: 1. Chronic obstructive pulmonary disease exacerbation complicated by purulent tracheobronchitis without patrica pneumonia and triggered by influenza A infection. 2. History of diabetes mellitus. 3. Deep venous thrombosis. 4. Hyperlipidemia. 5. Hypertension. 6. History of CLL. 7. History of narcolepsy. PLAN: The Rocephin is discontinued. We will put the patient on an oral antibiotic. The rest of medications are appropriate. The patient should be ready for discharge hopefully within 24 to 48 hours. She is feeling much better today compared to yesterday. I have counseled the patient about the importance of smoking cessation. MMODL / IJN: [id number] /
[2019-06-28 21:10] LABS: Glucose,Whole Blood 291 mg/dL (75-99)
[2019-06-28] MEDS: ATORVASTATIN 20 MG TAB PO SCH (21:15)
[2019-06-28] MEDS: ATENOLOL 25 MG TAB PO SCH (21:15)
[2019-06-29] MEDS: IPRATROPIUM-ALBUTEROL 3 ML NEB INHALATION SCH ×4 (00:43→20:23)
[2019-06-29] MEDS: methylPREDNISolone SOD SUCCI 125 MG/2 ML VIAL IV SCH ×2 (01:32→05:14)
[2019-06-29] MEDS: LEVOTHYROXINE 50 MCG TAB PO SCH (05:14)
[2019-06-29 07:19] LABS: Glucose,Whole Blood 275 mg/dL (75-99)
[2019-06-29] MEDS: NON FORMULARY DRUG (Dextroamphetamine/Amphetamine [Adderall] 20 MG) PO SCH ×2 (07:31→17:49)
[2019-06-29] MEDS: OSELTAMIVIR 60 MG/10 ML ORAL SYRINGE PO SCH (08:14)
[2019-06-29] MEDS: NICOTINE 14MG/24HR PATCH TRANSDERM SCH (08:14)
[2019-06-29] MEDS: HEPARIN SODIUM,PORCINE 5,000 UNIT/ML 1 ML VIAL SQ SCH ×2 (08:14→20:59)
[2019-06-29] MEDS: LOSARTAN 50 MG TAB PO SCH (08:14)
[2019-06-29] MEDS: AZITHROMYCIN 500 MG TAB PO SCH (08:15)
[2019-06-29] MEDS: INSULIN ASPART (NovoLOG) 100 UNIT/ML VIAL SQ SCH ×4 (08:15→20:57)
[2019-06-29] MEDS: amLODIPine 5 MG TAB PO SCH (08:15)
[2019-06-29] MEDS: ASPIRIN 81 MG PO SCH (08:15)
[2019-06-29] MEDS: CHOLECALCIFEROL 1,000 UNIT TAB PO SCH (08:15)
[2019-06-29] MEDS: BUDESONIDE 1 MG/2 ML NEBU INHALATION SCH ×2 (08:56→20:23)
[2019-06-29] MEDS: FORMOTEROL FUMARATE 20 MCG/2 ML NEBU INHALATION SCH ×2 (08:56→20:23)
[2019-06-29] MEDS: SODIUM CHLORIDE 0.9% 1,000 ML IV SCH ×2 (10:46→20:57)
[2019-06-29 10:59] LABS: Basophils % (A) 0 %; Eosinophils % (A) 0 %; HCT 34.4 % (34.0-46.0); Hypochromasia Marked; Lymphocytes # (A) 0.4 k/uL (1.0-4.8); Lymphocytes % (A) 4 %; MCH 20.6 pg (25.0-35.0); MCHC 29.1 g/dL (31.0-37.0); MCV 70.6 fL (80.0-100.0); Mean Platelet Volume 7.3; Microcytosis Moderate; Monocytes # (A) 0.2 k/uL (0-1.0); Monocytes % (A) 2 %; Neutrophils # (A) 9.5 k/uL (1.3-7.7); Neutrophils % (A) 94 %; Platelet Count 228 k/uL (150-450); RBC 4.88 m/uL (3.80-5.40); RDW 13.8 % (11.5-15.5); WBC 10.1 k/uL (3.8-10.6)
[2019-06-29 11:04] LABS: Calcium 8.8 mg/dL (8.4-10.2); Phosphorus 3.8 mg/dL (2.5-4.5); Potassium 4.1 mmol/L (3.5-5.1)
--- NOTE | 2019-06-29 11:54 | P.PN ---
Subjective Progress Note Date: 06/29/19 Principal diagnosis: Acute exacerbation of chronic obstructive pulmonary disease complicated by purulent tracheobronchitis and influenza A infection The patient is seen today 06/29/2019 in follow-up on the regular medical floor. She was admitted for an acute exacerbation of chronic obstructive pulmonary disease, gated by purulent tracheobronchitis and influenza A infection. No clear evidence of pneumonia. She is currently resting comfortably in bed. Awake and alert in no acute distress. Not quite back to her baseline. Still with some dyspnea on minimal exertion. Still somewhat bronchospastic and wheezy. White count 10.1. Hemoglobin 10.0. Creatinine 1.50. She remains on bronchodilators, steroids, antibiotics, Tamiflu. Habitrol patch is in place Objective - Vital Signs Vital signs: Vital Signs Temp 96.8 F L 06/29/19 05:22 Pulse 76 06/29/19 09:19 Resp 20 06/29/19 05:22 BP 169/79 06/29/19 05:22 Pulse Ox 90 L 06/29/19 05:22 Intake & Output 06/28/19 06/29/19 06/29/19 18:59 06:59 18:59 Intake Total 700 Balance 700 Intake: Intake, IV Titration 700 Amount Sodium Chloride 0.9% 1, 600 000 ml @ 75 mls/hr IV . [id number] SKYE Rx#:[id number] cefTRIAXone 1 gm In 100 Sodium Chloride 0.9% 50 ml @ 100 mls/hr IVPB HS SKYE Rx#:[id number] Other: # Voids 3 - Exam GENERAL EXAM: Alert, pleasant 79-year-old female patient, on room air, comfortable in no apparent distress. HEAD: Normocephalic. EYES: Normal reaction of pupils, equal size. NOSE: Clear with pink turbinates. THROAT: No erythema or exudates. NECK: No masses, no JVD. CHEST: No chest wall deformity. LUNGS: Equal air entry with bilateral end expiratory wheeze, diminished. CVS: S1 and S2 normal with no audible murmur, regular rhythm. ABDOMEN: No hepatosplenomegaly, normal bowel sounds, no guarding or rigidity. SPINE: No scoliosis or deformity SKIN: No rashes CENTRAL NERVOUS SYSTEM: No focal deficits, tone is normal in all 4 extremities. EXTREMITIES: There is no peripheral edema. No clubbing, no cyanosis. Peripheral pulses are intact. - Labs CBC & Chem 7: 06/29/19 09:50 06/29/19 09:50 Labs: Abnormal Lab Results - Last 24 Hours (Table) 06/28/19 06/28/19 06/29/19 Range/Units 16:49 21:09 07:17 Hgb (11.4-16.0) gm/dL MCV (80.0-100.0) fL MCH (25.0-35.0) pg MCHC (31.0-37.0) g/dL Neutrophils # (1.3-7.7) k/uL Lymphocytes # (1.0-4.8) k/uL Sodium (137-145) mmol/L BUN (7-17) mg/dL Creatinine (0.52-1.04) mg/dL Glucose (74-99) mg/dL POC Glucose (mg/dL) 302 H 291 H 275 H (75-99) mg/dL 06/29/19 06/29/19 Range/Units 09:50 09:50 Hgb 10.0 L (11.4-16.0) gm/dL MCV 70.6 L (80.0-100.0) fL MCH 20.6 L (25.0-35.0) pg MCHC 29.1 L (31.0-37.0) g/dL Neutrophils # 9.5 H (1.3-7.7) k/uL Lymphocytes # 0.4 L (1.0-4.8) k/uL Sodium 136 L (137-145) mmol/L BUN 40 H (7-17) mg/dL Creatinine 1.50 H (0.52-1.04) mg/dL Glucose 332 H (74-99) mg/dL POC Glucose (mg/dL) (75-99) mg/dL Assessment and Plan Assessment: 1 Acute exacerbation of chronic obstructive pulmonary disease, came a permanent tracheobronchitis and influenza A infection. No clear evidence of pneumonia. 2 Chronic and ongoing tobacco dependence 3 Diabetes mellitus 4 History of DVT 5 Hyperlipidemia 6 Hypertension 7 History of CLL 8 History of narcolepsy Plan: The patient was seen and evaluated by Dr. Ahn. She is improved but not quite back to her baseline. We'll continue with the current treatment plan. Increase activity as tolerated. Possible discharge in the a.m. We'll continue to follow. I, the cosigning physician, performed a history & physical examination of the patient. Lungs sounds with bilateral end expiratory wheeze, diminished. Maintaining good O2 saturations in the 90s on room air. I discussed the assessment and plan of care with my nurse practitioner, Lynn Mcdaniels. I attest to the above note as dictated by her.
[2019-06-29 12:26] LABS: Glucose,Whole Blood 335 mg/dL (75-99)
[2019-06-29] MEDS: MULTIVITAMINS, THERA 1 EACH TAB PO SCH (12:49)
[2019-06-29 17:13] LABS: Glucose,Whole Blood 261 mg/dL (75-99)
[2019-06-29 20:53] LABS: Glucose,Whole Blood 241 mg/dL (75-99)
[2019-06-29] MEDS: ATENOLOL 25 MG TAB PO SCH (20:57)
[2019-06-29] MEDS: ATORVASTATIN 20 MG TAB PO SCH (20:57)
--- NOTE | 2019-06-29 21:35 | PN ---
PROGRESS NOTE DATE OF SERVICE: 06/29/2019 This 79-year-old woman admitted with features of COPD acute exacerbation as well as possible bronchopneumonia is being closely monitored. No chest pain. No palpitations. No fever. PHYSICAL EXAMINATION: Pulse is 74, blood pressure 146/67, respirations 16, temperature 98.6, pulse ox 98% on room air. HEENT: Conjunctivae normal. NECK: No JVD. CARDIOVASCULAR: S1, S2 muffled. LUNGS: Diminished breath sounds at the bases. Scattered rhonchi and crackles. ABDOMEN: Soft, nontender. LEGS: No swelling. NERVOUS SYSTEM: No focal deficits. LABS: WBC 10.2, hemoglobin is 10, sodium 130, potassium 4.1. ASSESSMENT: 1. Chronic obstructive pulmonary disease acute exacerbation with acute purulent tracheobronchitis and acute bronchopneumonia possibly gram-negative, present on admission with acute hypoxic respiratory failure. 2. Acute influenza A. 3. Renal failure acute with acute prerenal and acute tubular necrosis. 4. Hyponatremia. 5. Hypokalemia. 6. Increased AST, ALT with mild hepatitis possibly secondary to influenza. 7. Diabetes mellitus type 2. 8. History of deep venous thrombosis. 9. History of hyperlipidemia. 10.History of hypertension. 11.History of chronic lymphatic leukemia. 12.History of narcolepsy. 13.History of degenerative joint disease. 14.History of nicotine dependence, continued, ongoing. RECOMMENDATIONS AND DISCUSSION: Recommend to continue current medication, continue to monitor, symptomatic treatment. Otherwise, at this time I recommend taper the steroids and continue the rest of medications. Closely follow with Dr. Ahn. Monitor blood sugars closely. Further recommendations to follow. MMODL / IJN: [id number] /
[2019-06-30] MEDS: LEVOTHYROXINE 50 MCG TAB PO SCH (05:55)
[2019-06-30 07:23] LABS: Glucose,Whole Blood 218 mg/dL (75-99)
[2019-06-30 07:24] VITALS: BP 166/74; RESP 18; TEMP 96.7
[2019-06-30] MEDS: NON FORMULARY DRUG (Dextroamphetamine/Amphetamine [Adderall] 20 MG) PO SCH (07:41)
[2019-06-30] MEDS: INSULIN ASPART (NovoLOG) 100 UNIT/ML VIAL SQ SCH ×2 (07:47→12:21)
[2019-06-30] MEDS: AZITHROMYCIN 500 MG TAB PO SCH (07:47)
[2019-06-30] MEDS: MULTIVITAMINS, THERA 1 EACH TAB PO SCH (07:48)
[2019-06-30] MEDS: ASPIRIN 81 MG PO SCH (07:48)
[2019-06-30] MEDS: LOSARTAN 50 MG TAB PO SCH (07:48)
[2019-06-30] MEDS: CHOLECALCIFEROL 1,000 UNIT TAB PO SCH (07:48)
[2019-06-30] MEDS: amLODIPine 5 MG TAB PO SCH (07:48)
[2019-06-30] MEDS: OSELTAMIVIR 60 MG/10 ML ORAL SYRINGE PO SCH (07:48)
[2019-06-30] MEDS: NICOTINE 14MG/24HR PATCH TRANSDERM SCH (07:49)
[2019-06-30] MEDS: HEPARIN SODIUM,PORCINE 5,000 UNIT/ML 1 ML VIAL SQ SCH (07:49)
[2019-06-30] MEDS: FORMOTEROL FUMARATE 20 MCG/2 ML NEBU INHALATION SCH (08:23)
[2019-06-30] MEDS: BUDESONIDE 1 MG/2 ML NEBU INHALATION SCH (08:23)
[2019-06-30] MEDS: IPRATROPIUM-ALBUTEROL 3 ML NEB INHALATION SCH ×2 (08:23→12:02)
[2019-06-30 08:42] LABS: Basophils % (A) 0 %; Eosinophils % (A) 0 %; HCT 35.5 % (34.0-46.0); HGB 10.5 gm/dL (11.4-16.0); Hypochromasia Marked; Lymphocytes # (A) 0.6 k/uL (1.0-4.8); Lymphocytes % (A) 5 %; MCHC 29.7 g/dL (31.0-37.0); MCV 70.9 fL (80.0-100.0); Mean Platelet Volume 7.8; Microcytosis Moderate; Monocytes # (A) 0.4 k/uL (0-1.0); Monocytes % (A) 3 %; Neutrophils # (A) 11.4 k/uL (1.3-7.7); Neutrophils % (A) 91 %; Platelet Count 303 k/uL (150-450); RBC 5.02 m/uL (3.80-5.40); RDW 13.9 % (11.5-15.5); WBC 12.6 k/uL (3.8-10.6)
[2019-06-30 08:51] VITALS: PULSE 77
[2019-06-30 08:53] LABS: Calcium 9.1 mg/dL (8.4-10.2); Potassium 4.7 mmol/L (3.5-5.1)
[2019-06-30] MEDS ORDERED: metFORMIN 500 MG TAB PO SCH (09:00)
[2019-06-30] MEDS ORDERED: predniSONE 10 MG TAB PO SCH (09:00)
[2019-06-30] MEDS: SODIUM CHLORIDE 0.9% 1,000 ML IV SCH (10:52)
--- NOTE | 2019-06-30 13:26 | P.DS ---
Providers Date of admission: 06/27/19 16:22 Expected date of discharge: 06/30/19 Attending physician: Casey Bone Consults: 06/27/19 20:10 Consult Physician Routine Consulting Provider: Frances Charles Consult Reason/Comments: copd Do you want consulting provider notified?: Yes [facility] Course: Final diagnosis Chronic obstructive pulmonary disease acute exacerbation with acute poorly and tracheobronchitis an acute bronchopneumonia possibly gram-negative, present on admission with acute hypoxic respiratory failure Acute influenza A Renal failure acute with acute prerenal and acute tubular necrosis Hyponatremia Hypokalemia Increased AST, ALT with mild hepatitis possibly secondary to influenza Diabetes mellitus type 2 History of deep vein thrombosis History of hyperlipidemia History of hypertension History of chronic lymphatic leukemia History of narcolepsy History of degenerative joint disease History of nicotine dependence, continued, ongoing Discharge disposition Patient is being discharged in a stable condition with guarded prognosis to home and will follow-up with Dr. Bell in the outpatient setting upon discharge. Patient will also follow-up with Dr. Ahn in 1-2 weeks. Patient will continue with short course of oral antibiotics in the form of Zithromax along with completing the last 2 doses of Tamiflu upon discharge. Patient will also continue with a prednisone taper upon discharge. Total time taken is 35 minutes. History of present illness This is an 79-year-old female who was recently admitted with features of chronic obstructive pulmonary disease acute exacerbation as well as possible bronchopneumonia and was being closely monitored. Found to have influenza A and Tamiflu was started. She will continue on a short course of oral antibiotics to complete the regimen of Zithromax along with the last 2 doses of Tamiflu. She will continue with bronchodilators along with a prednisone taper upon discharge. Currently patient's condition is stable and states she would like to go home today. Patient instructed to avoid tobacco use and to follow-up with pulmonary Dr. Ahn in the outpatient setting in 1-2 weeks. Currently patient denies any chest pain, worsening shortness of breath, or palpitations. Patient is afebrile. Patient denies any nausea or vomiting and is tolerating diet. Recom mend repeat labs in 2-3 days to monitor electrolytes. On exam vital signs are stable. Temp is 96.7F, pulse is 69, respirations are 18, blood pressure is 166/74, oxygen saturation is 95% on 2 L via nasal cannula. Cardio S1, S2 are muffled. Respiratory system shows diminished breath sounds at the bases some mild expiratory wheezing noted on exam. Abdomen is soft and nontender. Nervous system shows no focal deficits. Please refer to medication reconciliation sheet for a list of medications. Patient Condition at Discharge: Stable Plan - Discharge Summary Discharge Rx Participant: No New Discharge Prescriptions: New Ipratropium-Albuterol Nebulize [Duoneb 0.5 mg-3 mg/3 ml Soln] 3 ml INHALATION RT-QID #100 ml Ipratropium-Albuterol Nebulize [Duoneb 0.5 mg-3 mg/3 ml Soln] 3 ml INHALATION RT-Q4H PRN ml PRN Reason: Shortness Of Breath Or Wheezing Multivitamins, Thera [Multivitamin (formulary)] 1 each PO DAILY@1200 30 Days #30 tab predniSONE 10 mg PO DIRECTED #20 tab Budesonide-Formot 160-4.5 Mcg [Symbicort 160-4.5 Mcg Inhaler] 2 puff INHALATION BID 30 Days #1 inhaler Oseltamivir 6Mg/ml Oral Susp [Tamiflu] 30 mg PO DAILY 2 Days #2 ml Azithromycin [Zithromax] 500 mg PO DAILY 4 Days #4 tab Continue Aspirin 81 mg PO DAILY Simvastatin [Zocor] 40 mg PO HS Atenolol [Tenormin] 25 mg PO HS Levothyroxine Sodium [Synthroid] 50 mcg PO DAILY Famotidine 40 mg PO DAILY PRN PRN Reason: Heartburn Dextroamphetamine/Amphetamine [Adderall] 20 mg PO BID amLODIPine [Norvasc] 5 mg PO DAILY Losartan [Cozaar] 50 mg PO DAILY metFORMIN HCL 500 mg PO DAILY Cholecalciferol [Vitamin D3 (25 Mcg = 1000 Iu)] 1,000 unit PO DAILY Discharge Medication List Aspirin 81 mg PO DAILY 05/09/14 [History] Simvastatin [Zocor] 40 mg PO HS 05/09/14 [History] Atenolol [Tenormin] 25 mg PO HS 05/24/14 [History] Levothyroxine Sodium [Synthroid] 50 mcg PO DAILY 02/11/16 [History] Famotidine 40 mg PO DAILY PRN 02/12/16 [History] Dextroamphetamine/Amphetamine [Adderall] 20 mg PO BID 08/05/16 [History] Cholecalciferol [Vitamin D3 (25 Mcg = 1000 Iu)] 1,000 unit PO DAILY 06/27/19 [History] Losartan [Cozaar] 50 mg PO DAILY 06/27/19 [History] amLODIPine [Norvasc] 5 mg PO DAILY 06/27/19 [History] metFORMIN HCL 500 mg PO DAILY 06/27/19 [History] Azithromycin [Zithromax] 500 mg PO DAILY 4 Days #4 tab 06/30/19 [Rx] Budesonide-Formot 160-4.5 Mcg [Symbicort 160-4.5 Mcg Inhaler] 2 puff INHALATION BID 30 Days #1 inhaler 06/30/19 [Rx] Ipratropium-Albuterol Nebulize [Duoneb 0.5 mg-3 mg/3 ml Soln] 3 ml INHALATION RT-Q4H PRN ml 06/30/19 [Rx] Ipratropium-Albuterol Nebulize [Duoneb 0.5 mg-3 mg/3 ml Soln] 3 ml INHALATION RT-QID #100 ml 06/30/19 [Rx] Multivitamins, Thera [Multivitamin (formulary)] 1 each PO DAILY@1200 30 Days #30 tab 06/30/19 [Rx] Oseltamivir 6Mg/ml Oral Susp [Tamiflu] 30 mg PO DAILY 2 Days #2 ml 06/30/19 [Rx] predniSONE 10 mg PO DIRECTED #20 tab 06/30/19 [Rx] Follow up Appointment(s)/Referral(s): Wilman Ahn DO [Doctor of Osteopathic Medicine] - 07/09/19 1:15 pm Federico Bell DO [Primary Care Provider] - 1-2 days (office closed , Please call to make appointment ) Ambulatory/Diagnostic Orders: Basic Metabolic Panel [LAB.AMB] Time Frame: 2 Days, Location: None Selected Activity/Diet/Wound Care/Special Instructions: Activity Limited until follow-up Continue current diet Continue with antibiotics until finished Continue Tamiflu for the next 2 days Continue the prednisone taper Follow-up with primary care provider upon discharge Follow-up with pulmonary in 1-2 weeks Discharge Disposition: HOME SELF-CARE
--- NOTE | 2019-06-30 16:45 | PN ---
PROGRESS NOTE PULMONARY/CRITICAL CARE PROGRESS NOTE: DATE OF SERVICE: 06/30/2019 This patient is an 79-year-old female admitted on June 27. She came in with a diagnosis of COPD exacerbation complicated by purulent tracheobronchitis and influenza A infection. There was no evidence of patrica pneumonia. She does have a history of chronic and ongoing tobacco dependence, diabetes mellitus, DVT, hyperlipidemia, hypertension, CLL and narcolepsy. The patient has complaints of shortness of breath on exertion, cough, chest congestion and phlegm production. Her breathing has improved since she has been here. Currently denies any fever or chills. There is no chest pain or chest discomfort. No nausea, vomiting or diarrhea. PHYSICAL EXAMINATION: VITAL SIGNS: Her current vital signs are reviewed. Temperature is 96.7 heart rate 69, respiratory rate 18, blood pressure 166/74, mean 104, and 2-liter saturation 95% to 96%. GENERAL APPEARANCE: Appears no acute distress. HEENT EXAMINATION: Grossly unremarkable. Mucous membranes are moist. Nasal oxygen noted. NECK: Supple. Full range of motion. No adenopathy or thyromegaly. Neck veins are flat. CARDIOVASCULAR EXAMINATION: Regular rhythm and rate. Heart rate is 70. S1, S2 normal. Heart sounds are distant. LUNGS: Some coarse expiratory rhonchi. Breath sounds are definitely improved. Breath sounds are equal bilaterally but diminished throughout. No wheezes. No crackles. ABDOMEN: Obese. Bowel sounds are heard. EXTREMITIES: Intact. No cyanosis, clubbing or edema. SKIN: Without rash. NEUROLOGIC: Neurologic examination is nonfocal. Microbiologic data is negative. LABS/IMAGING: Reviewed. White count 12.6, hemoglobin 10.5, hematocrit 35.5, platelet count 303,000. Sodium 138, potassium 4.7, chloride 100, CO2 31. Anion gap 7. BUN and creatinine are 34 and 1.10. The rest of the labs are reviewed. Chest x-ray shows nothing acute from the pulmonary standpoint. Medications are reviewed. ASSESSMENT: 1. Acute exacerbation of chronic obstructive pulmonary disease, complicated by purulent tracheobronchitis and influenza A infection. 2. No evidence of pneumonia. 3. Chronic and ongoing tobacco dependence, despite counseling. 4. History of diabetes mellitus. 5. History of deep venous thrombosis. 6. Hyperlipidemia. 7. Benign essential hypertension. 8. History of CLL. 9. History of narcolepsy. PLAN: The patient will need followup in our office. I apparently saw her many years back. That was when she fell going down the stairs while walking her dog. She sustained a pelvic fracture and some clavicular fracture that time. Unfortunately she continues to smoke. The patient may need oxygen on discharge, when and if she is discharged. Additional recommendations and suggestions are forthcoming. We will continue to follow. MMODL / IJN: [id number] /
== END 2019-06-30 12:40 | disposition home or self-care (01) | DRG 177 ==
LOC: EC 14:12 → 6NMEDSUR 16:22
PROVIDERS: ADMIT Hospitalist; ATTEND Hospitalist
DX: J10.08 Influenza due to other identified influenza virus with other specified pneumonia (principal); J96.01 Acute respiratory failure with hypoxia; J15.6 Pneumonia due to other Gram-negative bacteria; N17.0 Acute kidney failure with tubular necrosis; E87.1 Hypo-osmolality and hyponatremia; C91.10 Chronic lymphocytic leukemia of B-cell type not having achieved remission; I10 Essential (primary) hypertension; E87.6 Hypokalemia; F17.200 Nicotine dependence, unspecified, uncomplicated; J20.9 Acute bronchitis, unspecified; J44.0 Chronic obstructive pulmonary disease with (acute) lower respiratory infection; J44.1 Chronic obstructive pulmonary disease with (acute) exacerbation; M19.90 Unspecified osteoarthritis, unspecified site; E78.5 Hyperlipidemia, unspecified; E11.9 Type 2 diabetes mellitus without complications; Z80.1 Family history of malignant neoplasm of trachea, bronchus and lung; Z79.82 Long term (current) use of aspirin; Z79.84 Long term (current) use of oral hypoglycemic drugs; Z79.890 Hormone replacement therapy; Z79.899 Other long term (current) drug therapy; Z83.3 Family history of diabetes mellitus; Z82.3 Family history of stroke; Z86.718 Personal history of other venous thrombosis and embolism; Z98.890 Other specified postprocedural states
CPT/HCPCS: 36415; 71046; 80048; 80053; 83605; 83735; 83880; 84100; 85025; 87502; 93005; 94640; 96365; 96366; 96375; 99291

== ENCOUNTER → 2022-11-26 | Outpatient (CLI) | payer MEDICARE, OTHER ==
[2022-11-26 14:18] LABS: African American GFR (CKD) 67 (>60 ml/min/1.73 sqM); Blood Urea Nitrogen 24 mg/dL (7-17); Non-African American GFR(CKD) 59 (>60 ml/min/1.73 sqM)
--- NOTE | 2022-11-28 08:04 | CT ---
EXAMINATION TYPE: CT ChestAbdPelvis w con DATE OF EXAM: 11/26/2022 COMPARISON: 04/16/2019 HISTORY: Chronic lymphocytic leukemia of B-cell type CT DLP: 704.8 mGycm CONTRAST: CT scan of the chest, abdomen and pelvis is performed with Oral Contrast and with IV Contrast, patien t injected with 80 ml mL of Isovue 300. CT Chest: LUNGS: The lungs are clear and free of infiltrate or atelectasis. There is a new lobulated pulmonary nodule measuring 1.3 cm right lower lobe superiorly seen on image 32 sequence 5. Stable granuloma rig ht upper lobe. Stable focal pleural thickening right mid lung zone. Groundglass subpleural nodular density measuring 7 mm. Mild emphysematous changes noted. No pleural e ffusion or CT evidence of interstitial lung disease. MEDIASTINUM: Ascending thoracic aortic aneurysm measuring 4.1 cm AP dimension versus 4.1 cm previousl y. Atheromatous change of the thoracic aorta is otherwise seen. No evidence for dissection. There is mild stable cardiomegaly. No evidence for mediastinal mass or adenopathy. HILAR STRUCTURES: No evidence for mass. No hilar adenopathy is appreciated. OTHER: No significant abnormality. CONTRAST CT ABDOMEN AND PELVIS FINDINGS: LIVER/GB: No calcified gallstones. No space occupying hepatic lesion. Biliary tree is of normal ca liber. PANCREAS: No inflammation. No distinct mass. SPLEEN: No splenic enlargement. No lesion seen. ADRENALS: Stable left adrenal nodule measuring 1.9 cm versus 1.9 cm previously. Reflect adrenal adeno ma. Right adrenal gland is unremarkable. No thickening. KIDNEYS/BLADDER: No hydronephrosis. No nephrolithiasis. No disctinct renal mass. BOWEL: Normal appendix. Normal bowel caliber. No inflammation. GENITAL ORGANS: No gross abnormality. LYMPH NODES: No greater than 1cm abdominal or pelvic lymph nodes are appreciated. AORTA: No significant abnormality. OSSEOUS STRUCTURES: No significant abnormality is seen. OTHER: Fat-containing left inguinal hernia. IMPRESSION: 1. No recurrent or residual adenopathy within the chest abdomen or pelvis. 2. New lobulated pulmonary nodule right lower lobe superior segment measuring 1.3 cm. Additional righ t lower lobe groundglass nodular density. PET/CT recommended for further evaluation. 3. Stable left adrenal adenoma. 4. Stable ascending thoracic aortic aneurysm.
== END | disposition home or self-care (01) ==
LOC: RADCTMAIN 13:24
PROVIDERS: ATTEND Internal Medicine Hematology & Oncology
DX: C91.10 Chronic lymphocytic leukemia of B-cell type not having achieved remission (principal); D64.9 Anemia, unspecified; I71.9 Aortic aneurysm of unspecified site, without rupture; E11.9 Type 2 diabetes mellitus without complications; I71.21 Aneurysm of the ascending aorta, without rupture; D35.02 Benign neoplasm of left adrenal gland
CPT/HCPCS: 82565; 84520; 71260; 74177; 36415; Q9967

== ENCOUNTER → 2023-10-05 | Outpatient (CLI) | payer MEDICARE ==
--- NOTE | 2023-10-05 13:32 | PE ---
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 Images are reviewed on the computer in the coronal, axial, and sagittal planes. Reconstructed rotating images are created on independent workstation and reviewed on the computer. A non-contrast CT is performed in conjunction with the PET scan. Glucose level 105 mg/dL CT DLP: 406 mGycm, Automated exposure control for dose reduction was used. COMPARISON: CT 11/26/2022, PET/CT None, FINDINGS: Mediastinal SUV mean is 1.7. Hepatic parenchyma SUV mean is 2.2. SKULL BASE AND NECK: * Abnormal lymphadenopathy throughout the lower Neck examples include: * Right supraclavicular measuring 15 mm short axis max SUV 1.9. * Left supraclavicular measuring 12 mm Max SUV 1.5. CHEST, MEDIASTINUM, AND HILAR REGION: * Abnormal lymph nodes throughout the exam: Examples include * Left axilla measuring up to 24 mm Max SUV 3.1 * right axilla measuring up to 18 mm Max SUV 2.6. * 21 mm right lower lobe superior segment nodule Max SUV 7.4 ABDOMEN AND PELVIS: * Focal uptake in the sigmoid colon/rectum max SUV 7.6 * Scattered prominent lymph nodes are seen throughout the mesentery the largest measuring up to 9 mm in short axis max SUV 1.5. MUSCULOSKELETAL STRUCTURES: No suspicious radiotracer activity. OTHER CT: Bilaterally aphakia. Atherosclerosis of the carotid bifurcations, consultations of the rama nary arteries and aortic valve. Cholelithiasis. Peripelvic renal cysts bilaterally. Severe degenerati on changes of the right hip with suspected prior fracture. Fatty changes in the inguinal canals. IMPRESSION: 1. Enlarging right lower lobe superior segment FDG avid nodule measuring 21 mm concerning for malign patriico. Given patient's history of colon cancer findings could represent colon cancer versus new primar y malignancy. 2. Uptake within the rectum/sigmoid colon correlate for location of primary malignancy. Findings cou ld represent mild colitis with malignancy not excluded. 3. Diffuse abnormal enlarged lymph nodes. Findings likely related to patient's history of chronic ly mphocytic leukemia. This is worsened from 11/26/2022.
== END | disposition home or self-care (01) ==
LOC: RADPETMAIN 10:53
PROVIDERS: ATTEND Surgery
DX: D49.0 Neoplasm of unspecified behavior of digestive system (principal); R59.0 Localized enlarged lymph nodes; R91.1 Solitary pulmonary nodule
CPT/HCPCS: 78815; A9552

== ENCOUNTER 2023-10-23 12:53 | Day surgery (SDC) | payer MEDICARE ==
[2023-10-22 12:32] VITALS: BMI 22.7
[~2023-10-23 12:53] MED LIST: DEXAMETHASONE SOD PHOSPHATE 4 MG/ML 1 ML VIAL IV ONE; LACTATED RINGERS 1,000 ML IV SCH; LIDOCAINE 1% (10MG/ML) FOR IV START INTRADERMA PRN; fentaNYL (PF) 50 MCG/ML 2 ML AMP IV PRN
--- NOTE | 2023-10-23 13:37 | CT ---
EXAMINATION TYPE: CT Chest wo ION protocol DATE OF EXAM: 10/23/2023 COMPARISON: CT chest abdomen and pelvis is 11/26/2022 HISTORY: ION Bronchoscopy. lung nodule. CT DLP: 218.0 mGycm. Automated Exposure Control for Dose Reduction was Utilized. TECHNIQUE: CT scan of the thorax is performed without IV contrast. FINDINGS: LUNGS: The lungs are grossly clear, there is no concerning parenchymal mass there are marked emphysematous c hanges.. There is a 2.4 cm mass in the right lower lobe medially highly suspicious for neoplasm. There is a 9 mm subpleural parenchymal mass in the right lower lobe posteriorly which possibly represents a satell ite neoplasm There is a small pleural parenchymal ill-defined density in the right upper lobe posterolaterally. Th ere is a 5.6 mm right upper lobe subpleural parenchymal calcified granuloma. There are no suspicious left lung masses or nodules. There is no airspace consolidation. There is no pleural effusion or pneumothorax. There is marked dilatation of the ascending thoracic aorta which measures 4.8 cm. There is marked bilateral axillary adenopathy. The largest lymph node is in the left axilla and measu res approximately 3 cm. There are multiple enlarged supraclavicular lymph nodes on the left. There ar e multiple borderline lymph nodes in the mediastinum. Limited scan to the upper abdomen reveals a 2.2 cm left adrenal nodule/mass. No focal osseous lesions are seen. IMPRESSION: 1. Findings highly suspicious for right lower lobe neoplasm with possible satellite nodules. 2. Marked bilateral axillary adenopathy and left supraclavicular adenopathy. 3. Borderline enlarged mediastinal lymph nodes. 4. 2.2 cm left adrenal nodule/mass which could represent metastatic disease. 5. Marked dilatation of ascending thoracic aorta which measures 4.8 cm.
[2023-10-23] MEDS: IV FLUID CONTINUATION 1,000 ML IV ONE (14:13)
[2023-10-23] MEDS: LACTATED RINGERS 1,000 ML IV SCH (14:14)
[2023-10-23] MEDS: ONDANSETRON 4 MG/2 ML VIAL IVP PRN (14:16)
[2023-10-23] MEDS: DEXAMETHASONE SOD PHOSPHATE 4 MG/ML 1 ML VIAL IV ONE (14:16)
[2023-10-23 14:25] LABS: Glucose,Whole Blood 112 mg/dL (70-110)
[2023-10-23] MEDS ORDERED: PROPOFOL 10 MG/ML 20 ML VIAL IV ONE (14:27)
[2023-10-23] MEDS ORDERED: GLYCOPYRROLATE 0.2 MG/ML 2 ML VIAL ONE (14:27)
[2023-10-23] MEDS ORDERED: ROCURONIUM 10 MG/ML (5 ML VIAL) IV ONE (14:27)
[2023-10-23] MEDS ORDERED: LIDOCAINE 1% INJ 10MG/ML (20 ML MDV) ONE (14:27)
[2023-10-23] MEDS ORDERED: NEOSTIGMINE 1 MG/ML 10 ML VIAL ONE (14:27)
[2023-10-23] MEDS ORDERED: SUCCINYLCHOLINE CHLORIDE 200 MG/10 ML VIAL IV ONE (14:27)
--- NOTE | 2023-10-23 15:16 | P.PCN ---
Date of Procedure: 10/23/23 Operative Findings: Preoperative Diagnosis: Right lower lobe mass, 21 mm Postoperative Diagnosis: Right lower lobe mass, 21 mm Procedure(s) Performed: Flexible bronchoscopy Robotic-assisted bronchoscopy and addition to radial ultrasound evaluation of the right lower lobe mass, 21 mm in size Robotic-assisted transbronchial needle aspirate, transbronchial biopsies of the right lower lobe mass in addition to a bronchioloalveolar lavage Anesthesia: DANIEL Surgeon: Tonny Somers Estimated Blood Loss (ml): 0 Pathology: other Condition: stable Disposition: same day Operative Findings: A physical exam was performed. Informed consent was obtained from the patient after explaining all the risks (pneumothorax, life threatening bleeding, infection and adverse effects due to medications), benefits and alternatives to the procedure which the patient appeared to understand and so stated. The patient was connected to the monitoring devices. General anesthesia was induced and the patient was intubated by anesthesia. A final timeout was performed and the procedure confirmed by the attending staff bronchoscopist. The bronchoscope was inserted and the airway examined. The flexible bronchoscope was removed and the robotic bronchoscope was inserted. Registration was completed. I next guided the robotic bronchoscope using the navigation system into the superior segment of the right lower lobe. Once in proper position, the bronchoscope was frozen. The radial EBUS probe was placed through the bronchoscope and confirmed abnormal u/s images vs normal lung. A needle was placed through the working channel and under fluoroscopic guidance, we sampled the area thought to have the mass twice. We then used a cloud biopsy pattern with ultrasound confirmation for 2 additional passes with the needle. U/S evaluation was then used to reconfirm location. Forceps were next introduced through working channel and extended the appropriate distance and 3 transbronchial biopsies were performed using fluoroscopic guidance. The u/s probe was then reinserted to confirm location. When confirmed this process was repeated for a total of 8-10 transbronchial biopsies. After reassessment with EBUS, a brush was placed through the extendable working channel for 1 pass with fluoroscopic guidance. U/S evaluation was then used to confirm location. 40ml of saline was then instilled into the area of the lesion. 10cc was aspiratred. The robotic bronchoscope was removed and the airway inspected no evidence of any ongoing endobronchial bleeding. Flex. bronchoscope was inserted and regular suctioning was done. At the completion of the procedure, no residual secretions or bloody material within the airway. The bronchoscope was removed. The patient was extubated. FINDINGS: 1.The airways appeared normal 2 Successful navigation, ultrasonographic identification, and biopsies of right lower lobe mass 3.The radial ultrasound view was concentric RECOMMENDATIONS: Await pathology and cytology results The referring physician will be alerted to the results when available. The patient was advised to follow up with the referring physician with the biopsy results Patient will be called with results.
[2023-10-23 15:34] VITALS: TEMP 97.7
--- NOTE | 2023-10-23 16:40 | XR ---
EXAMINATION TYPE: XR chest 1V DATE OF EXAM: 10/23/2023 COMPARISON: 06/27/2019 HISTORY: 83-year-old female post bronc with biopsy TECHNIQUE: Single frontal view of the chest is obtained. FINDINGS: Heart borderline enlarged. Atherosclerotic arch calcifications. Diffuse interstitial densi ty. Chronic, displaced, ununited fracture distal right clavicle. Hyperinflation. Old right-sided rib fracture deformities. No appreciable pneumothorax. IMPRESSION: COPD with some patchy medial right basilar opacity, possible post biopsy changes. No ap preciable pneumothorax.
[2023-10-23 16:46] VITALS: BP 169/65; PULSE 55; RESP 17
--- NOTE | 2023-10-23 17:07 | FL ---
EXAMINATION TYPE: FL bronchoscopy DATE OF EXAM: 10/23/2023 FLUOROSCOPY ION BRONCH. 1.15 MIN FL. 2.65 Gycm2. 1 images submitted.
== END 2023-10-23 17:10 | disposition home or self-care (01) ==
LOC: ORWHC2ENDO 12:53
PROVIDERS: ATTEND Internal Medicine Critical Care Medicine
DX: D3A.090 Benign carcinoid tumor of the bronchus and lung (principal); J44.9 Chronic obstructive pulmonary disease, unspecified; I10 Essential (primary) hypertension; E78.5 Hyperlipidemia, unspecified; E03.9 Hypothyroidism, unspecified; E11.9 Type 2 diabetes mellitus without complications; F41.9 Anxiety disorder, unspecified; F17.200 Nicotine dependence, unspecified, uncomplicated; Z86.73 Personal history of transient ischemic attack (TIA), and cerebral infarction without residual deficits; Z79.82 Long term (current) use of aspirin; Z79.890 Hormone replacement therapy; Z79.84 Long term (current) use of oral hypoglycemic drugs; Z79.899 Other long term (current) drug therapy; Z88.0 Allergy status to penicillin; Z88.5 Allergy status to narcotic agent; Z79.51 Long term (current) use of inhaled steroids; Z98.890 Other specified postprocedural states
CPT/HCPCS: 87798 ×3; 87496; 87498; 87529; 88108; 88305; 88342; 87502; 87634; 88341; 87070; 87205; 87116; 87102; 87206; 87635; 71045; 71250; 31628; 31629; 31623; 31624; J0330; J1100; J2710; J2405; J2001; J2704; S2900

== ENCOUNTER → 2024-04-07 | Outpatient (CLI) | payer MEDICARE ==
[2024-04-07 11:55] LABS: African American GFR (CKD) 53 (>60 ml/min/1.73 sqM); Blood Urea Nitrogen 24 mg/dL (7-17); Non-African American GFR(CKD) 46 (>60 ml/min/1.73 sqM)
--- NOTE | 2024-04-07 12:42 | CT ---
EXAMINATION TYPE: CT chest w con CT DLP: 244.70 mGycm, Automated exposure control for dose reduction was used. DATE OF EXAM: 04/07/2024 12:19 PM COMPARISON: CT chest 10/23/2023, PET CT 10/05/2023, CT chest abdomen and pelvis 11/26/2022, 04/16/2019 CLINICAL INDICATION:Female, 83 years old with history of C7A.8, C34.31; PHH, Hx lung ca, recent radia tion treatment TECHNIQUE: Multiple axial images were obtained through the chest following the administration of 100 cc of Isovue 300. . Coronal and sagittal reformats reviewed. FINDINGS: LUNGS/ PLEURA: No pleural effusion, pneumothorax, focal consolidation. Mild centrilobular emphysemato us changes. Stable peripheral right upper lobe 4 mm calcified granuloma. Stable posterior right upper lobe pleural thickening with adjacent reticular opacities measuring up to 1.7 cm (series 4, image 22 ). No FDG activity in prior PET/CT. New 7 mm solid nodule along the major fissure within the superior segment of the right lower lobe (series 4, image 24). Additional new satellite nodule measuring up t o 7 mm (series 4, image 26). Decreased size of medial right lower lobe previously seen pulmonary nodu le measuring now 1.4 cm with some peripheral reticular opacities (series 4, image 29), previously filipe sured 2.4 cm. Stable posterior right lower lobe subpleural reticular opacities (series 4, image 32). No FDG activity in prior PET/CT. AIRWAY: Patent and unremarkable.. HEART: The heart is mildly increased in size..No pericardial effusion. Moderate coronary arterial vas cular calcifications. MEDIASTINUM: No mediastinal or hilar lymph nodes greater than 1 7 short axis. 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 Athe rosclerotic calcification of the aorta and its branches. Dilatation the main pulmonary artery measuri ng up to 3.7 cm which can be seen with pulmonary arterial hypertension. No filling defect identified. MUSCULOSKELETAL: No acute osseous abnormalities. Remote right sided rib fractures. No aggressive osse ous lesion. Multilevel degenerative disease. SOFT TISSUES/LYMPH NODES: Left breast dystrophic calcifications. Bilateral axillary adenopathy redemo nstrated. The largest visualized left axillary lymph node measures up to 2.1 cm short axis. Largest r ight axillary lymph node visualized measuring 1.9 cm short axis. Grossly stable from prior exam. Just left of midline superficial lesion measuring 7 mm likely representing sebaceous cysts. LOWER NECK: Bilateral prominent enlarged supraclavicular lymph nodes are redemonstrated and appear gr ossly stable in size. UPPER ABDOMEN: Cholelithiasis. Stable left adrenal gland 2.0 cm lesion which was not FDG avid on prio r PET/CT. Multiple cysts small retroperitoneal lymph nodes are stable. Not FDG avid on prior PET/CT. IMPRESSION: 1. Mixed response to treatment with decrease size of previously seen dominant right lower lobe pulmo nary nodule now measuring 1.4 cm, previously 2.4 cm. However there are 2 new solid nodules measuring 7 mm within the superior segment of the right lower lobe concerning for metastatic disease. 2. Stable bilateral axillary adenopathy. Stable partially visualized supraclavicular adenopathy. Add itional stable retroperitoneal mildly prominent lymph nodes. 3. Stable left adrenal gland 2 cm lesion which is not FDG avid on prior PET/CT. [facility], , 04/07/2024 12:40 PM
== END | disposition home or self-care (01) ==
LOC: RADCTMAIN 11:04
PROVIDERS: ATTEND Radiology Radiation Oncology
DX: C7A.8 Other malignant neuroendocrine tumors (principal); C34.31 Malignant neoplasm of lower lobe, right bronchus or lung; C18.7 Malignant neoplasm of sigmoid colon; R91.8 Other nonspecific abnormal finding of lung field; R59.0 Localized enlarged lymph nodes; K80.20 Calculus of gallbladder without cholecystitis without obstruction; I70.0 Atherosclerosis of aorta; R91.1 Solitary pulmonary nodule
CPT/HCPCS: 71260; 82565; 84520

== ENCOUNTER → 2024-06-14 | Outpatient (CLI) | payer MEDICARE ==
[2024-06-14 12:45] LABS: African American GFR (CKD) 68 (>60 ml/min/1.73 sqM); Blood Urea Nitrogen 24 mg/dL (7-17); Non-African American GFR(CKD) 59 (>60 ml/min/1.73 sqM)
--- NOTE | 2024-06-14 14:49 | CT ---
EXAMINATION TYPE: CT chest wo/w con DATE OF EXAM: 06/14/2024 1:17 PM COMPARISON: 04/07/2024 CLINICAL INDICATION: Female, 84 years old with history of C34.31, HX OF LUNG CA TECHNIQUE: Axial images were obtained at 5 mm thick sections. Reconstructed images are reviewed on [employer] computer in the coronal plane. Contrast used:100ml mL of Isovue 300 without and with IV Contrast, (none if empty) Oral contrast used: (none if empty) CT DLP: 678.0 mGycm, Automated exposure control for dose reduction was used. FINDINGS: Portion of the thyroid visualized is normal. There is a spiculated density in the posterior lateral right upper lung field. Series 5 image 21. Thi s measures 1.7 cm along the pleural margin. This appears stable from comparison. Minimally enlarged d ensities along the posterior right lower lobe pleural margin, series 5 image 30. Currently 1.7 cm, pr ior measuring 1.4 cm. Additional densities in the infrahilar region measuring 1.1 cm similar to holland rison. There is increasing size nodularity within the superior segment right lower lobe. On series 5 image 2 4 there is a 0.9 cm nodule, prior measuring 0.6 cm. Series 5 image 25 there is a 0.9 cm nodule, previ ous measurement approximately 0.6 cm. Additional small rounded nodules are anterior to this 0.9 cm no dule. These nodules have enlarged. There is an additional punctate nodule in the anterior lateral right lung measuring 0.4 cm. Series 5 image 25. This is stable from comparison. There is some mild emphysematous change present. No enlarged mediastinal or hilar adenopathy is evident. Shotty lymphadenopathy is within the mediast inum. No suspicious hilar adenopathy is evident. The ascending aorta diameter at the level of the ma in pulmonary artery is 4.1 cm. The main pulmonary artery diameter at the bifurcation is 4.0 cm. Mode rate coronary artery calcification is present. Limited CT sections are obtained through the upper abdomen. There is a 1.3 x 2.1 cm left adrenal glan d nodule, stable from comparison IMPRESSION: 1. Increasing nodularity superior segment right lower lobe. PET/CT recommended for additional workup. 2. There are additional scattered stable appearing irregular densities in the right upper and lower l obes. [facility], , 06/14/2024 2:47 PM
== END | disposition home or self-care (01) ==
LOC: RADCTMAIN 12:01
PROVIDERS: ATTEND Radiology Radiation Oncology
DX: C34.31 Malignant neoplasm of lower lobe, right bronchus or lung (principal); C18.7 Malignant neoplasm of sigmoid colon; C7A.8 Other malignant neuroendocrine tumors; R91.8 Other nonspecific abnormal finding of lung field; J98.4 Other disorders of lung; Z85.118 Personal history of other malignant neoplasm of bronchus and lung
CPT/HCPCS: 82565; 84520; 71270; 36415; Q9967

== ENCOUNTER 2024-07-19 18:03 | Observation (INO) | payer MEDICARE ==
--- NOTE | 2024-07-19 18:19 | ED ---
Weakness HPI - General Source: patient, RN notes reviewed Mode of arrival: ambulatory Limitations: no limitations <Cristy Wiley - Last Filed: 07/19/24 18:19> <Milton Victoria - Last Filed: 07/19/24 19:58> - General Chief complaint: Weakness Stated complaint: pnemonia Time Seen by Provider: 07/19/24 18:18 - History of Present Illness Initial comments: Quick [id number] female presenting for cough with associated shortness of breath and dizziness. Recently diagnosed with pneumonia. Denies chest pain. (Cristy Wiley) This is an 84-year-old female with past medical history significant for lung cancer and CLL. Patient states she has recently had radiation. Patient has been recently treated for pneumonia but comes in today because she continues to be short of breath weak and has been spiking low-grade fevers. Patient states she was taking Levaquin but is finished a 7-day course. Patient denies any chest pain Patient denies abdominal pain patient has nausea vomiting diarrhea. Patient denies any back pain. Patient states she is still coughing quite a bit (Milton Victoria) - Related Data Home Medications Medication Instructions Recorded Confirmed Aspirin 81 mg PO QAM 05/09/14 07/13/24 atenoloL [Tenormin] 25 mg PO HS 05/24/14 07/13/24 Levothyroxine Sodium [Synthroid] 50 mcg PO QAM 02/11/16 07/13/24 Famotidine 40 mg PO DAILY PRN 02/12/16 07/13/24 Dextroamphetamine/Amphetamine 20 mg PO BID 08/05/16 07/13/24 [Adderall] Losartan [Cozaar] 50 mg PO QAM 06/27/19 07/13/24 amLODIPine [Norvasc] 5 mg PO HS 06/27/19 07/13/24 metFORMIN HCL 500 mg PO QAM PRN 06/27/19 07/13/24 Atorvastatin [Lipitor] 40 mg PO HS 10/22/23 07/13/24 Ferrous Gluconate 1 mg PO Q48H 10/22/23 07/13/24 Vit B12(Unknown Dose) 1 mg PO QAM 10/22/23 07/13/24 Vit D2(Unknown Dose) 1 dose PO Q30D 10/22/23 07/13/24 Previous Rx's Medication Instructions Recorded Multivitamins, Thera [Multivitamin 1 each PO DAILY@1200 30 Days #30 06/30/19 (formulary)] tab Allergies Allergy/AdvReac Type Severity Reaction Status Date / Time latex Allergy Itching/aishwarya Verified 07/19/24 18:16 h Sulfa (Sulfonamide Allergy Sneezing, Verified 07/19/24 18:16 Antibiotics) bloodshot eyes, Itching Review of Systems ROS Other: All systems not noted in ROS Statement are negative. <Cristy Wiley - Last Filed: 07/19/24 18:19> ROS Other: All systems not noted in ROS Statement are negative. <Milton Victoria - Last Filed: 07/19/24 19:58> ROS Statement: Those systems with pertinent positive or pertinent negative responses have been documented in the HPI. Past Medical History Past Medical History: Blood Disorder, Cancer, CVA/TIA, Diabetes Mellitus, Deep Vein Thrombosis (DVT), GI Bleed, Hyperlipidemia, Hypertension, Skin Disorder, Thyroid Disorder Additional Past Medical History / Comment(s): Recent nodule found on lung during PET scan.CLL/SLL-chemo 2012, narcolepsy, Type II NIDDM, "I had an episode of not being able to breathe and they said it was my heart.", hx of anemia, passing blood, now and then, from rectum. "When they did the colonoscopy they found something as big as a golf ball.""They took biopies of it." "Dr. Escobedo said it looked suspicious." "Dr. Carrillo wants to hold off on surgery for that until my lung issue is taken care of.""Dark spots all over my skin from the CLL." 2008- pt had TIA in sleep-no residual effects. Pt states AAA. anemia History of Any Multi-Drug Resistant Organisms: None Reported Past Surgical History: Hysterectomy, Orthopedic Surgery Additional Past Surgical History / Comment(s): right armpit lymph removed 03/01 the size of a golf ball, colonoscopy, scope lt knee, cataract surgery. Past Anesthesia/Blood Transfusion Reactions: No Reported Reaction, Postoperative Nausea & Vomiting (PONV) Past Psychological History: Anxiety Smoking Status: Former smoker Past Alcohol Use History: None Reported Past Drug Use History: None Reported - Past Family History Mother Family Medical History: Diabetes Mellitus Father Family Medical History: Cancer Additional Family Medical History / Comment(s): lung cancer. Sister(s) Family Medical History: CVA/TIA Brother(s) Family Medical History: No Reported History Son(s) Family Medical History: No Reported History Daughter(s) Family Medical History: No Reported History <Cristy Wiley - Last Filed: 07/19/24 18:19> General Exam Limitations: no limitations <Cristy iWley - Last Filed: 07/19/24 18:19> <Milton Victoria - Last Filed: 07/19/24 19:58> - General Exam Comments Initial Comments: Visual Physical Exam Vital signs reviewed General: Well-appearing, nontoxic, no acute distress. Head: Normocephalic, atraumatic Eyes: PERRLA, EOMI ENT: Airway patent Chest: Nonlabored breathing Skin: No visual rash, normal skin tone Neuro: Alert and oriented 3 Musculoskeletal: No gross abnormalities (Cristy Wiley) GENERAL: Patient is well-developed and well-nourished. Patient is nontoxic and well- hydrated and is in mild distress. ENT: Neck is soft and supple. No significant lymphadenopathy is noted. Oropharynx is clear. Moist mucous membranes. Neck has full range of motion without eliciting any pain. EYES: The sclera were anicteric and conjunctiva is pale. Extraocular movements were intact and pupils were equal round and reactive to light. Eyelids were unremarkable. PULMONARY: Unlabored respirations. Good breath sounds bilaterally. No audible rales rhonchi or wheezing was noted. CARDIOVASCULAR: There is a regular rate and rhythm without any murmurs gallops or rubs. ABDOMEN: Soft and nontender with normal bowel sounds. SKIN: Patient's skin is pale NEUROLOGIC: Patient is alert and oriented x3. Cranial nerves II through XII are grossly intact. Motor and sensory are also intact. Normal speech, volume and content. Symmetrical smile. MUSCULOSKELETAL: Normal extremities with adequate strength and full range of motion. No lower extremity swelling or edema. No calf tenderness. LYMPHATICS: No significant lymphadenopathy is noted PSYCHIATRIC: Normal psychiatric evaluation. (Milton Victoria) Course Vital Signs 07/19/24 18:12 Temperature 98.5 F Pulse Rate 99 Respiratory 20 Rate Blood Pressure 129/67 O2 Sat by Pulse 95 Oximetry Medical Decision Making <Cristy Wiley - Last Filed: 07/19/24 18:19> - Lab Data Result diagrams: 07/19/24 18:21 07/19/24 18:21 <Milton Victoria - Last Filed: 07/19/24 19:58> - Medical Decision Making I completed the quick note portion of this chart signed Cristy Wiley PA-C (Cristy Wiley) EKG is interpreted by myself. EKG shows sinus rhythm at 95 bpm MT was under 53 QRS is 98 QT interval is 374 QTc is 426. Patient's EKG shows no ST segment ovat ion or depression. Was pt. sent in by a medical professional or institution (, [facility], [employer], urgent ca re, hospital, or halfway...) When possible be specific @ -No Did you speak to anyone other than the patient for history (EMS, parent, family, police, friend...)? What history was obtained from this source @ -No Did you review nursing and triage notes (agree or disagree)? Why? @ -I reviewed and agree with nursing and triage notes Were old charts reviewed (outside hosp., previous admission, EMS record, old EKG, old radiological studies, urgent care reports/EKG's, halfway records)? Report findings @ -No old charts were reviewed Differential Diagnosis? @ -Differential Dyspnea: Coronary syndrome, arrhythmia, tamponade, asthma, COPD, pulmonary embolism, pneumonia, pneumothorax, pulmonary effusion, anaphylaxis, diabetic ketoacidosis, flailed chest, pulmonary contusion, diaphragmatic rupture, anemia, neuromuscular, this is not meant to be an all-inclusive list. EKG interpreted by me (3pts min.). @ -As above X-rays interpreted by me (1pt min.). @ -Patient has a right upper lobe pneumonia CT interpreted by me (1pt min.). @ -None done U/S interpreted by me (1pt. min.). @ -None done What testing was considered but not performed or refused? (CT, X-rays, U/S, labs)? Why? @ -None What meds were considered but not given or refused? Why? @ -None Did you discuss the management of the patient with other professionals (professionals i.e. , [facility], [employer], lab, RT, psych nurse, high school social science teacher, gas turbine powerplant mechanic, teacher, corporate ethics officer, medical case manager)? Give summary @ -I spoke with [facility] physicians agreed to admit the patient admit the patient recommending orders Was smoking cessation discussed for >3mins.? @ -No Was critical care preformed (if so, how long)? @ -No Were there social determinants of health that impacted care today? How? (Homelessness, low income, unemployed, alcoholism, drug addiction, transportation, low edu. Level, literacy, decrease access to med. care, long-term, rehab)? @ -No Was there de-escalation of care discussed even if they declined (Discuss DNR or withdrawal of care, Hospice)? DNR status @ -No What co-morbidities impacted this encounter? (DM, HTN, Smoking, COPD, CAD, Cancer, CVA, ARF, Chemo, Hep., AIDS, mental health diagnosis, sleep apnea, morbid obesity)? @ -None Was patient admitted / discharged? Hospital course, mention meds given and route, prescriptions, significant lab abnormalities, going to OR and other pertinent info. @ -Patient's hemoglobin so I ordered 1 unit of packed red blood cells. Patient also had pneumonia on the x-ray I started the patient on antibiotics. Admitted to [facility] physicians and I consulted oncology Undiagnosed new problem with uncertain prognosis? @ -No Drug Therapy requiring intensive monitoring for toxicity (Heparin, Nitro, Insulin, Cardizem)? @ -No Were any procedures done? @ -No Diagnosis/symptom? @ -Pneumonia Acute, or Chronic, or Acute on Chronic? @ -Acute Uncomplicated (without systemic symptoms) or Complicated (systemic symptoms)? @ -Complicated Side effects of treatment? @ -No Exacerbation, Progression, or Severe Exacerbation? @ -No Poses a threat to life or bodily function? How? (Chest pain, [place], [place], pneumonia, PE, COPD, DKA, ARF, appy, cholecystitis, CVA, Diverticulitis, Homicidal, Suicidal, threat to staff... and all critical care pts) @ -Yes this could lead to sepsis and endorgan dysfunction Diagnosis/symptom? @ -Anemia Acute, or Chronic, or Acute on Chronic? @ -Acute Uncomplicated (without systemic symptoms) or Complicated (systemic symptoms)? @ -Complicated Side effects of treatment? @ -None Exacerbation, Progression, or Severe Exacerbation] @ -No Poses a threat to life or bodily function? @ -Yes this could lead to hypoxia and endorgan dysfunction (Milton Victoria) - Lab Data Lab Results 07/19/24 07/19/24 07/19/24 Range/Units 18:21 18:21 18:21 WBC 6.3 (3.8-10.6) k/uL RBC 4.00 (3.80-5.40) m/uL Hgb 7.0 L (11.4-16.0) gm/dL Hct 25.6 L (34.0-46.0) % MCV 64.0 L (80.0-100.0) fL MCH 17.5 L (25.0-35.0) pg MCHC 27.3 L (31.0-37.0) g/dL RDW 19.5 H (11.5-15.5) % Plt Count 500 H (150-450) k/uL MPV 6.3 Neutrophils % 74 % Lymphocytes % 10 % Monocytes % 8 % Eosinophils % 5 % Basophils % 0 % Neutrophils # 4.6 (1.3-7.7) k/uL Lymphocytes # 0.6 L (1.0-4.8) k/uL Monocytes # 0.5 (0-1.0) k/uL Eosinophils # 0.3 (0-0.7) k/uL Basophils # 0.0 (0-0.2) k/uL Hypochromasia Marked Poikilocytosis Moderate Anisocytosis Slight Microcytosis Marked PT 11.8 (10.0-12.5) sec INR 1.1 (<1.2) APTT 30.9 H (22.0-30.0) sec Sodium 133 L (137-145) mmol/L Potassium 3.3 L (3.5-5.1) mmol/L Chloride 95 L (98-107) mmol/L Carbon Dioxide 31 H (22-30) mmol/L Anion Gap 7 mmol/L BUN 16 (7-17) mg/dL Creatinine 0.91 (0.52-1.04) mg/dL Est GFR (CKD-EPI)AfAm 67 (>60 ml/min/1.73 sqM) Est GFR (CKD-EPI)NonAf 58 (>60 ml/min/1.73 sqM) Glucose 128 H (74-99) mg/dL Plasma Lactic Acid Jose Rafael (0.7-2.0) mmol/L Calcium 9.0 (8.4-10.2) mg/dL Magnesium 1.8 (1.6-2.3) mg/dL Total Bilirubin 0.5 (0.2-1.3) mg/dL AST 26 (14-36) U/L ALT 18 (4-34) U/L Alkaline Phosphatase 76 (38-126) U/L Troponin I (0.000-0.034) ng/mL Total Protein 5.8 L (6.3-8.2) g/dL Albumin 3.2 L (3.5-5.0) g/dL Influenza Type A (PCR) (Not Detectd) Influenza Type B (PCR) (Not Detectd) RSV (PCR) (Not Detectd) SARS-CoV-2 (PCR) (Not Detectd) 07/19/24 07/19/24 07/19/24 Range/Units 18:21 18:21 18:21 WBC (3.8-10.6) k/uL RBC (3.80-5.40) m/uL Hgb (11.4-16.0) gm/dL Hct (34.0-46.0) % MCV (80.0-100.0) fL MCH (25.0-35.0) pg MCHC (31.0-37.0) g/dL RDW (11.5-15.5) % Plt Count (150-450) k/uL MPV Neutrophils % % Lymphocytes % % Monocytes % % Eosinophils % % Basophils % % Neutrophils # (1.3-7.7) k/uL Lymphocytes # (1.0-4.8) k/uL Monocytes # (0-1.0) k/uL Eosinophils # (0-0.7) k/uL Basophils # (0-0.2) k/uL Hypochromasia Poikilocytosis Anisocytosis Microcytosis PT (10.0-12.5) sec INR (<1.2) APTT (22.0-30.0) sec Sodium (137-145) mmol/L Potassium (3.5-5.1) mmol/L Chloride (98-107) mmol/L Carbon Dioxide (22-30) mmol/L Anion Gap mmol/L BUN (7-17) mg/dL Creatinine (0.52-1.04) mg/dL Est GFR (CKD-EPI)AfAm (>60 ml/min/1.73 sqM) Est GFR (CKD-EPI)NonAf (>60 ml/min/1.73 sqM) Glucose (74-99) mg/dL Plasma Lactic Acid Jose Rafael 1.2 (0.7-2.0) mmol/L Calcium (8.4-10.2) mg/dL Magnesium (1.6-2.3) mg/dL Total Bilirubin (0.2-1.3) mg/dL AST (14-36) U/L ALT (4-34) U/L Alkaline Phosphatase (38-126) U/L Troponin I 0.012 (0.000-0.034) ng/mL Total Protein (6.3-8.2) g/dL Albumin (3.5-5.0) g/dL Influenza Type A (PCR) Not Detected (Not Detectd) Influenza Type B (PCR) Not Detected (Not Detectd) RSV (PCR) Not Detected (Not Detectd) SARS-CoV-2 (PCR) Not Detected (Not Detectd) Disposition <Cristy Wiley - Last Filed: 07/19/24 18:19> Time of Disposition: 19:58 <Milton Victoria - Last Filed: 07/19/24 19:58> Clinical Impression: Anemia, Pneumonia Disposition: ADMITTED IP TO THIS HOSP Referrals: Federico Bell DO [Primary Care Provider] - 1-2 days
[2024-07-19 18:38] LABS: Anisocytosis Slight; Basophils % (A) 0 %; Eosinophils # (A) 0.3 k/uL (0-0.7); Eosinophils % (A) 5 %; HCT 25.6 % (34.0-46.0); Hypochromasia Marked; Lymphocytes # (A) 0.6 k/uL (1.0-4.8); Lymphocytes % (A) 10 %; MCH 17.5 pg (25.0-35.0); MCHC 27.3 g/dL (31.0-37.0); Mean Platelet Volume 6.3; Microcytosis Marked; Monocytes # (A) 0.5 k/uL (0-1.0); Monocytes % (A) 8 %; Neutrophils # (A) 4.6 k/uL (1.3-7.7); Neutrophils % (A) 74 %; Platelet Count 500 k/uL (150-450); Poikilocytosis Moderate; RDW 19.5 % (11.5-15.5); WBC 6.3 k/uL (3.8-10.6)
[2024-07-19 18:48] LABS: INR 1.1 (<1.2); Partial Thromboplastin Time 30.9 sec (22.0-30.0); Prothrombin Time 11.8 sec (10.0-12.5)
--- NOTE | 2024-07-19 18:48 | XR ---
EXAMINATION TYPE: XR chest 2V DATE OF EXAM: 07/19/2024 6:38 PM COMPARISON: Chest radiographs from 10/23/2023 CLINICAL INDICATION: Female, 84 years old with history of shortness of breath; TECHNIQUE: XR chest 2V Frontal and lateral views of the chest. FINDINGS: Lungs/Pleura: Scattered subtle reticular and hazy opacities in the right upper lunge. No evidence of pneumothorax, focal consolidation or pleural effusion. Pulmonary vascularity: Unremarkable. Heart/mediastinum: Cardiomediastinal silhouette is unremarkable. Musculoskeletal: No acute osseous pathology. IMPRESSION: Right upper lung airspace opacities clinically for pneumonia. [facility], , 07/19/2024 6:45 PM
[2024-07-19 18:50] LABS: ALT 18 U/L (4-34); AST 26 U/L (14-36); African American GFR (CKD) 67 (>60 ml/min/1.73 sqM); Albumin 3.2 g/dL (3.5-5.0); Alkaline Phosphatase 76 U/L (38-126); Anion Gap 7 mmol/L; Blood Urea Nitrogen 16 mg/dL (7-17); Carbon Dioxide 31 mmol/L (22-30); Chloride 95 mmol/L (98-107); Glucose 128 mg/dL (74-99); Magnesium 1.8 mg/dL (1.6-2.3); Non-African American GFR(CKD) 58 (>60 ml/min/1.73 sqM); Potassium 3.3 mmol/L (3.5-5.1); Sodium 133 mmol/L (137-145); Total Bilirubin 0.5 mg/dL (0.2-1.3); Total Protein 5.8 g/dL (6.3-8.2)
[2024-07-19 19:14] LABS: Influenza A Not Detected (Not Detectd); Influenza B Not Detected (Not Detectd); RSV Not Detected (Not Detectd)
[2024-07-19] MEDS ORDERED: PNEUMONIA PROTOCOL UTILIZED 1 EACH MISC PO PRN (19:58)
[2024-07-19] MEDS ORDERED: IPRATROPIUM-ALBUTEROL 3 ML NEB INHALATION PRN (21:19)
[2024-07-19] MEDS ORDERED: DEXTROSE 50% SYRINGE 50 ML IVP PRN ×2 (21:36)
[2024-07-19 22:12] LABS: Anisocytosis Slight; Basophils % (A) 0 %; Eosinophils # (A) 0.3 k/uL (0-0.7); Eosinophils % (A) 4 %; HCT 24.5 % (34.0-46.0); Hypochromasia Marked; Lymphocytes # (A) 0.7 k/uL (1.0-4.8); Lymphocytes % (A) 10 %; MCH 18.3 pg (25.0-35.0); MCHC 28.6 g/dL (31.0-37.0); MCV 64.2 fL (80.0-100.0); Mean Platelet Volume 7.5; Microcytosis Marked; Monocytes # (A) 0.5 k/uL (0-1.0); Monocytes % (A) 7 %; Neutrophils # (A) 5.3 k/uL (1.3-7.7); Neutrophils % (A) 77 %; Platelet Count 466 k/uL (150-450); Poikilocytosis Moderate; RBC 3.82 m/uL (3.80-5.40); RDW 19.6 % (11.5-15.5); WBC 6.9 k/uL (3.8-10.6)
[2024-07-19] MEDS: ATORVASTATIN 40 MG TAB PO SCH (22:33)
[2024-07-19] MEDS: atenoloL 25 MG TAB PO SCH (22:34)
[2024-07-19] MEDS: POTASSIUM CHLORIDE ER 20 MEQ TAB.ER PO STA (22:34)
[2024-07-19] MEDS: amLODIPine 5 MG TAB PO SCH (22:34)
[2024-07-19] MEDS: AZITHROMYCIN 500 MG in SODIUM CHLORIDE 0.9% 250 ML IVPB STA (22:36)
[2024-07-19 22:51] LABS: Glucose,Whole Blood 164 mg/dL (70-110)
--- NOTE | 2024-07-20 02:40 | P.HPIM ---
History of Present Illness H&P Date: 07/19/24 History of present illness; Patient is an 84-year-old female with CLL diagnosed in [address] Moyer most recent radiation in March, COPD, diabetes mellitus, hypertension, hyperlipidemia who presents with shortness of breath. Patient states that symptoms began 1 week ago with fevers, nonproductive cough, dizziness and generalized weakness. 1 week ago she was started on Levaquin for treatment of pneumonia which she finished yesterday. She states this did not improve her symptoms. During this time she has also had loss of appetite and is eating less than normal. She also reports some acid reflux and nausea during this time. Patient reports absence of chest pain, palpitations, diaphoresis, abdominal pain, vomiting, constipation, diarrhea, myalgia, headache, and dysuria. Spoke with the ER physician, patient admission was accepted by internal medicine service for treatment. REVIEW OF SYSTEMS: Pertinent positives and negatives noted in HPI. PHYSICAL EXAMINATION: Vitals reviewed GENERAL: Resting comfortably in bed. EYES: PERRL, no scleral injection or icterus. No vision loss HENT: Normocephalic, atraumatic, hearing grossly intact, dry mucous membranes NECK: No tracheal deviation, full range of motion. CARDIOVASCULAR: S1 and S2 present. Systolic murmur best appreciated in lower left sternal area. No rubs, or gallops. PULMONARY: Decreased breath sounds bilaterally. ABDOMEN: Soft, nontender, nondistended. No palpable organomegaly. MUSCULOSKELETAL: No apparent joint swelling and deformities. EXTREMITIES: No apparent cyanosis, clubbing. No pedal edema. NEUROLOGICAL: Alert and oriented. Gross neurological examination with no apparent focal deficits. SKIN: Multiple lesions apparent on skin ER FINDINGS: Labs significant for WBC 6.3, hemoglobin 7.0, MCV 64, platelets 500, sodium 133, potassium 3.3, chloride 95, bicarb 31, glucose 128, troponin 0.012, viral respiratory panel negative EKG independently interpreted showed sinus rhythm heart rate of 95, QTc 426, no ST segment elevation or depression seen, no T-wave inversions seen. Chest x-ray done independently interpreted showed right upper lung opacity. Assessment and Plan: In summary, patient is an 84-year-old female with CLL diagnosed in [address] Moyer most recent radiation in March, COPD, diabetes mellitus, hypertension, hyperlipidemia who presents with shortness of breath. #Pneumonia, unspecified organism #COPD, not in exacerbation #Metabolic alkalosis - CXR findings of right upper lung opacity - Blood and sputum cultures pending - urine Legionella, procalcitonin pending - begin IV Ceftriaxone 2g qd and IV Azithromycin 500 mg qd - plan to narrow antibiotic therapy as soon as feasible pending culture results - give supplemental O2 via NC when 93% or below - encourage incentive spirometry Labs significant for normal WBC 6.3, acute on chronic drop in hemoglobin 7.0, low MCV 64, elevated platelets 500, renal function unremarkable sodium 133, potassium 3.3, chloride 95, bicarb 31, glucose 128, troponin 0.012, viral respiratory panel negative for COVID , RSV, and influenza #CLL #Microcytic anemia baseline Hgb around 10-[address] Moyer Receiving regular iron infusions Given 1u pRBC Monitor CBC Oncology consulted #Hypokalemia #Hyponatremia hypovolemic, likely due to dehydration Initial potassium low 3.3, sodium 133 unremarkable Given potassium chloride 40 mill equivalents Monitor CMP #Diabetes mellitus, type 2 Holding oral medications Begin Accu-Cheks and low-dose sliding scale, monitor for hypoglycemia Chronic Medical Conditions #Essential hypertension - Resume home Losartan, Amlodipine #Hyperlidemia - Resume home Atorvastatin #Hypothyroidism - Resume home Synthroid #GERD- Resume home famotidine DVT ppx: Subq heparin 5000 units twice daily Code status: Full code F: P.o. E: Replete as needed N: Heart healthy diet Anticipated discharge place: Pending clinical course Anticipated discharge time: Pending clinical course Dictation was produced using [employer] dictation software. Please excuse any gr ammatical, word or spelling errors. I have seen and evaluated the patient today. I Discussed the case with the resident and agree with the resident's findings I edited the assessment and plan as necessary as documented in the resident's note. Past Medical History Past Medical History: Blood Disorder, Cancer, CVA/TIA, Diabetes Mellitus, Deep Vein Thrombosis (DVT), GI Bleed, Hyperlipidemia, Hypertension, Skin Disorder, Thyroid Disorder History of Any Multi-Drug Resistant Organisms: None Reported Past Surgical History: Hysterectomy, Orthopedic Surgery Additional Past Surgical History / Comment(s): right armpit lymph removed 03/01 the size of a golf ball, colonoscopy, scope lt knee, cataract surgery. Past Anesthesia/Blood Transfusion Reactions: No Reported Reaction, Postoperative Nausea & Vomiting (PONV) Past Psychological History: Anxiety Smoking Status: Former smoker Past Alcohol Use History: None Reported Past Drug Use History: None Reported - Past Family History Mother Family Medical History: Diabetes Mellitus Father Family Medical History: Cancer Additional Family Medical History / Comment(s): lung cancer. Sister(s) Family Medical History: CVA/TIA Brother(s) Family Medical History: No Reported History Son(s) Family Medical History: No Reported History Daughter(s) Family Medical History: No Reported History Medications and Allergies Home Medications Medication Instructions Recorded Confirmed Type Aspirin 81 mg PO DAILY 05/09/14 07/19/24 History atenoloL [Tenormin] 25 mg PO HS 05/24/14 07/19/24 History Levothyroxine Sodium [Synthroid] 50 mcg PO DAILY 02/11/16 07/19/24 History Famotidine 40 mg PO DAILY 02/12/16 07/19/24 History Dextroamphetamine/Amphetamine 20 mg PO BID 08/05/16 07/19/24 History [Adderall] Losartan [Cozaar] 50 mg PO DAILY 06/27/19 07/19/24 History amLODIPine [Norvasc] 5 mg PO HS 06/27/19 07/19/24 History Atorvastatin [Lipitor] 40 mg PO HS 10/22/23 07/19/24 History Cholecalciferol [Vitamin D3 (25 25 mcg PO DAILY 07/19/24 07/19/24 History Mcg = 1000 Iu)] Ipratropium-Albuterol Nebulize 3 ml INHALATION RT-Q4H PRN 07/19/24 07/19/24 History [Duoneb 0.5 mg-3 mg/3 ml Soln] Allergies Allergy/AdvReac Type Severity Reaction Status Date / Time latex Allergy Itching/aishwarya Verified 07/19/24 20:55 h Sulfa (Sulfonamide Allergy Sneezing, Verified 07/19/24 20:55 Antibiotics) bloodshot eyes, Itching Physical Exam Vitals: Vital Signs Temp Pulse Resp BP Pulse Ox 07/19/24 18:12 98.5 F 99 20 129/67 95 Intake and Output 07/19/24 07/19/24 07/19/24 06:59 14:59 22:59 Other: Weight 65.771 kg Results CBC & Chem 7: 07/19/24 21:00 07/19/24 18:21 Labs: Abnormal Lab Results - Last 24 Hours (Table) 07/19/24 07/19/24 07/19/24 Range/Units 18:21 18:21 18:21 Hgb 7.0 L (11.4-16.0) gm/dL Hct 25.6 L (34.0-46.0) % MCV 64.0 L (80.0-100.0) fL MCH 17.5 L (25.0-35.0) pg MCHC 27.3 L (31.0-37.0) g/dL RDW 19.5 H (11.5-15.5) % Plt Count 500 H (150-450) k/uL Lymphocytes # 0.6 L (1.0-4.8) k/uL APTT 30.9 H (22.0-30.0) sec Sodium 133 L (137-145) mmol/L Potassium 3.3 L (3.5-5.1) mmol/L Chloride 95 L (98-107) mmol/L Carbon Dioxide 31 H (22-30) mmol/L Glucose 128 H (74-99) mg/dL Total Protein 5.8 L (6.3-8.2) g/dL Albumin 3.2 L (3.5-5.0) g/dL
[2024-07-20 07:21] LABS: Glucose,Whole Blood 210 mg/dL (70-110)
--- NOTE | 2024-07-20 07:56 | XR ---
EXAMINATION TYPE: XR chest 2V DATE OF EXAM: 07/20/2024 6:46 AM COMPARISON: Chest radiographs from 07/19/2024, PET/CT 07/02/2024, CT chest 06/14/2024 TECHNIQUE: XR chest 2V Frontal and lateral views of the chest. CLINICAL INDICATION:Female, 84 years old with history of pneumonia; FINDINGS: Lungs/Pleura: Decrease airspace opacities within the right upper lung from prior exam. Similar medial right basilar opacity. Chronic diffuse interstitial prominence. Calcified granuloma within the perip heral right upper lung. Hyperinflation. Heart/mediastinum: Cardiomediastinal silhouette is enlarged and stable. Atherosclerotic calcificatio ns are seen in the aorta. Musculoskeletal: No acute osseous pathology. Post surgical changes of the distal right clavicle. 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 IMPRESSION: 1. Improving right upper lung patchy airspace opacities. Similar medial right basilar opacity. 2. COPD changes. [facility], , 07/20/2024 7:53 AM
[2024-07-20] MEDS: FAMOTIDINE 20 MG TAB PO SCH (09:11)
[2024-07-20] MEDS: HEPARIN SODIUM,PORCINE 5,000 UNIT/ML 1 ML VIAL SQ SCH (09:11)
[2024-07-20] MEDS: ASPIRIN 81 MG PO SCH (09:11)
[2024-07-20] MEDS: INSULIN LISPRO (HumaLOG) 100 UNIT/ML 10 mL VL SQ SCH (09:11)
[2024-07-20] MEDS: LEVOTHYROXINE 50 MCG TAB PO SCH (09:11)
[2024-07-20] MEDS: LOSARTAN 50 MG TAB PO SCH (09:11)
[2024-07-20] MEDS: CHOLECALCIFEROL 25 MCG (1000 IU) TABLET PO SCH (09:11)
[2024-07-20] MEDS: NON FORMULARY DRUG (Dextroamphetamine/Amphetamine [Adderall] 20 MG Tablet) PO SCH (09:12)
[2024-07-20 09:41] LABS: Anisocytosis Moderate; Basophils % (A) 0 %; Eosinophils # (A) 0.3 k/uL (0-0.7); Eosinophils % (A) 5 %; HCT 27.2 % (34.0-46.0); HGB 7.9 gm/dL (11.4-16.0); Hypochromasia Marked; Lymphocytes # (A) 0.6 k/uL (1.0-4.8); Lymphocytes % (A) 9 %; MCH 19.9 pg (25.0-35.0); MCV 68.7 fL (80.0-100.0); Mean Platelet Volume 6.5; Microcytosis Marked; Monocytes # (A) 0.4 k/uL (0-1.0); Monocytes % (A) 6 %; Neutrophils # (A) 4.6 k/uL (1.3-7.7); Neutrophils % (A) 75 %; Platelet Count 399 k/uL (150-450); Poikilocytosis Moderate; RBC 3.96 m/uL (3.80-5.40); RDW 21.5 % (11.5-15.5); WBC 6.1 k/uL (3.8-10.6)
[2024-07-20 09:54] LABS: African American GFR (CKD) 87 (>60 ml/min/1.73 sqM); Anion Gap 4 mmol/L; Blood Urea Nitrogen 17 mg/dL (7-17); Calcium 8.6 mg/dL (8.4-10.2); Carbon Dioxide 33 mmol/L (22-30); Chloride 98 mmol/L (98-107); Glucose 165 mg/dL (74-99); Magnesium 1.8 mg/dL (1.6-2.3); Non-African American GFR(CKD) 76 (>60 ml/min/1.73 sqM); Phosphorus 2.7 mg/dL (2.5-4.5); Potassium 3.9 mmol/L (3.5-5.1); Sodium 135 mmol/L (137-145)
[2024-07-20 10:55] LABS: HCT 26.2 % (37.2-46.3); HGB 7.4 g/dL (12.0-15.0); MCH 19.2 pg (27.0-32.0); MCHC 28.2 g/dL (32.0-37.0); MCV 68.1 FL (80.0-97.0); Mean Platelet Volume 8.9 FL (9.5-12.2); NRBC Per 100 WBC 0 X 10*3/uL (0.00-0.01); Platelet Count 386 X 10*3/uL (140-440); RBC 3.85 X 10*6/uL (4.10-5.20); RDW 24.5 % (11.5-14.5); WBC 5.37 X 10*3/uL (4.50-10.00)
[2024-07-20 11:27] LABS: BUN/Creat Ratio 15.88 Ratio (12.00-20.00); Blood Urea Nitrogen 12.7 mg/dL (9.0-27.0); Calcium 8.7 mg/dL (8.7-10.3); Carbon Dioxide 28.9 mmol/L (21.6-31.8); Chloride 104 mmol/L (96-109); Glucose 108 mg/dL (70-110); Potassium 4.1 mmol/L (3.5-5.5); Sodium 145 mmol/L (135-145)
[2024-07-20 12:15] LABS: Glucose,Whole Blood 195 mg/dL (70-110)
--- NOTE | 2024-07-20 13:09 | P.PN ---
Subjective pt doing well, on room air s/p 1 unit prbc yesterday awaiting repeat labs Objective - Vital Signs Vital signs: Vital Signs Temp 97.6 F 07/20/24 12:02 Pulse 84 07/20/24 12:02 Resp 16 07/20/24 12:02 BP 119/53 07/20/24 12:02 Pulse Ox 97 07/20/24 12:02 FiO2 Intake & Output 07/19/24 07/20/24 07/20/24 18:59 06:59 18:59 Intake Total 1020 240 Balance 1020 240 Weight 65.771 kg 65.771 kg Intake: Oral 710 240 Blood Product 310 Rc Irr As1 Unit 310 [id number] Other: # Voids 3 - Constitutional General appearance: Present: average body habitus - EENT Eyes: Present: PERRLA - Respiratory Respiratory: negative: CTA, diminished, dullness - Cardiovascular Rhythm: regular Heart sounds: normal: S1, S2 - Musculoskeletal Musculoskeletal: Present: gait normal - Psychiatric Psychiatric: Present: A&O x's 3, appropriate affect - Labs CBC & Chem 7: 07/20/24 08:51 07/20/24 08:51 Labs: Abnormal Lab Results - Last 24 Hours (Table) 07/19/24 07/19/24 07/19/24 Range/Units 18:21 18:21 18:21 RBC (4.10-5.20) X 10*6/uL Hgb 7.0 L (11.4-16.0) gm/dL Hct 25.6 L (34.0-46.0) % MCV 64.0 L (80.0-100.0) fL MCH 17.5 L (25.0-35.0) pg MCHC 27.3 L (31.0-37.0) g/dL RDW 19.5 H (11.5-15.5) % Plt Count 500 H (150-450) k/uL MPV (9.5-12.2) FL Lymphocytes # 0.6 L (1.0-4.8) k/uL APTT 30.9 H (22.0-30.0) sec Sodium 133 L (137-145) mmol/L Potassium 3.3 L (3.5-5.1) mmol/L Chloride 95 L (98-107) mmol/L Carbon Dioxide 31 H (22-30) mmol/L Anion Gap (4.00-12.00) mmol/L Glucose 128 H (74-99) mg/dL POC Glucose (mg/dL) (70-110) mg/dL Total Protein 5.8 L (6.3-8.2) g/dL Albumin 3.2 L (3.5-5.0) g/dL Crossmatch 07/19/24 07/19/24 07/19/24 Range/Units 21:00 21:29 22:49 RBC (4.10-5.20) X 10*6/uL Hgb 7.0 L (11.4-16.0) gm/dL Hct 24.5 L (34.0-46.0) % MCV 64.2 L (80.0-100.0) fL MCH 18.3 L (25.0-35.0) pg MCHC 28.6 L (31.0-37.0) g/dL RDW 19.6 H (11.5-15.5) % Plt Count 466 H (150-450) k/uL MPV (9.5-12.2) FL Lymphocytes # 0.7 L (1.0-4.8) k/uL APTT (22.0-30.0) sec Sodium (137-145) mmol/L Potassium (3.5-5.1) mmol/L Chloride (98-107) mmol/L Carbon Dioxide (22-30) mmol/L Anion Gap (4.00-12.00) mmol/L Glucose (74-99) mg/dL POC Glucose (mg/dL) 164 H (70-110) mg/dL Total Protein (6.3-8.2) g/dL Albumin (3.5-5.0) g/dL Crossmatch See Detail 07/20/24 07/20/24 07/20/24 Range/Units 06:12 06:12 07:16 RBC 3.85 L (4.10-5.20) X 10*6/uL Hgb 7.4 L (11.4-16.0) gm/dL Hct 26.2 L (34.0-46.0) % MCV 68.1 L (80.0-100.0) fL MCH 19.2 L (25.0-35.0) pg MCHC 28.2 L (31.0-37.0) g/dL RDW 24.5 H (11.5-15.5) % Plt Count (150-450) k/uL MPV 8.9 L (9.5-12.2) FL Lymphocytes # (1.0-4.8) k/uL APTT (22.0-30.0) sec Sodium (137-145) mmol/L Potassium (3.5-5.1) mmol/L Chloride (98-107) mmol/L Carbon Dioxide (22-30) mmol/L Anion Gap 12.10 H (4.00-12.00) mmol/L Glucose (74-99) mg/dL POC Glucose (mg/dL) 210 H (70-110) mg/dL Total Protein (6.3-8.2) g/dL Albumin (3.5-5.0) g/dL Crossmatch 07/20/24 07/20/24 07/20/24 Range/Units 08:51 08:51 12:13 RBC (4.10-5.20) X 10*6/uL Hgb 7.9 L (11.4-16.0) gm/dL Hct 27.2 L (34.0-46.0) % MCV 68.7 L (80.0-100.0) fL MCH 19.9 L (25.0-35.0) pg MCHC 29.0 L (31.0-37.0) g/dL RDW 21.5 H (11.5-15.5) % Plt Count (150-450) k/uL MPV (9.5-12.2) FL Lymphocytes # 0.6 L (1.0-4.8) k/uL APTT (22.0-30.0) sec Sodium 135 L (137-145) mmol/L Potassium (3.5-5.1) mmol/L Chloride (98-107) mmol/L Carbon Dioxide 33 H (22-30) mmol/L Anion Gap (4.00-12.00) mmol/L Glucose 165 H (74-99) mg/dL POC Glucose (mg/dL) 195 H (70-110) mg/dL Total Protein (6.3-8.2) g/dL Albumin (3.5-5.0) g/dL Crossmatch Assessment and Plan Assessment: #Pneumonia, unspecified organism #COPD, not in exacerbation #Metabolic alkalosis - CXR findings of right upper lung opacity - Blood and sputum cultures pending - urine Legionella, procalcitonin pending - begin IV Ceftriaxone 2g qd and IV Azithromycin 500 mg qd - give supplemental O2 via NC when 93% or below - encourage incentive spirometry Labs significant for normal WBC 6.3, acute on chronic drop in hemoglobin 7.0, low MCV 64, elevated platelets 500, renal function unremarkable sodium 133, potassium 3.3, chloride 95, bicarb 31, glucose 128, troponin 0.012, viral respiratory panel negative for COVID , RSV, and influenza #CLL #Microcytic anemia baseline Hgb around 10-[address] Moyer Receiving regular iron infusions Given 1u pRBC Monitor CBC Oncology consulted, appreciate recs #Hypokalemia #Hyponatremia hypovolemic, likely due to dehydration Initial potassium low 3.3, sodium 133 unremarkable Given potassium chloride 40 mill equivalents Monitor CMP - Replace electrolytes as indicated #Diabetes mellitus, type 2 Holding oral medications Begin Accu-Cheks and low-dose sliding scale, monitor for hypoglycemia Chronic Medical Conditions #Essential hypertension - Resume home Losartan, Amlodipine #Hyperlidemia - Resume home Atorvastatin #Hypothyroidism - Resume home Synthroid #GERD- Resume home famotidine DVT ppx: SCD Code status: Full code
[2024-07-20] MEDS: SODIUM FERRIC GLUCONAT-SUCROSE 125 MG in SODIUM CHLORIDE 0.9% 100 ML IVPB SCH (13:30)
[2024-07-20 14:08] LABS: Basophils # (A) 0.03 X 10*3/uL (0.00-0.10); Basophils % (A) 0.6 %; Elliptocytes 2+ (None Seen); Eosinophils # (A) 0.36 X 10*3/uL (0.04-0.35); Eosinophils % (A) 6.7 %; Lymphocytes # (A) 0.61 X 10*3/uL (0.90-5.00); Lymphocytes % (A) 11.4 %; Microcytosis (M) 2+ (None Seen); Monocytes # (A) 0.77 X 10*3/uL (0.20-1.00); Monocytes % (A) 14.3 %; Neutrophils % (A) 65.1 %
--- NOTE | 2024-07-20 15:01 | P.CONS ---
History of Present Illness - Reason for Consult Consult date: 07/20/24 Melena, iron deficiency anemia Requesting physician: Eduardo Cope - Chief Complaint Shortness of breath and dizziness - History of Present Illness This is a pleasant 84-year-old female with a history of CLL with radiation, lung cancer, rectal cancer status post resection, COPD, recent pneumonia, lung nodule found recently, type 2 diabetes mellitus, hyperlipidemia, hypertension, thyroid disorder who had presented to the emergency department with complaints of shortness of breath and dizziness. Patient was recently diagnosed and treated for pneumonia. She follows with Dr. Moyer from oncology. She has a history of iron deficiency anemia and undergoes parenteral infusions as well as oral iron at home. Patient was found to have microcytic anemia on admission. [facility] was consulted for iron deficiency anemia and melena. Patient states that she had a dark stool about 2 weeks ago and then again 1 the other day following taking her oral iron. She takes oral iron every other day. Hemoglobin was 7.0 on admission she was transfused 1 unit of blood. She states that she has not had previous history of blood transfusion. Last colonoscopy October 2022 when she was diagnosed with rectal cancer and underwent surgery with Dr. Carrillo and is scheduled to have colonoscopy this October. There are no recent labs to review however patient has paperwork with a hemoglobin of 9.3 in May 2024, 8.6 in March 2024. She denies any nausea or vomiting. Denies any blood in her stool. She is not on any anticoagulation, took aspirin for low- grade fever secondary to her pneumonia however has not been taking any NSAIDs. No history of peptic ulcer disease. Review of Systems REVIEW OF SYSTEMS: CARDIOPULMONARY: No chest pain. Patient has shortness of breath. Gastrointestinal: No abdominal pain. No nausea or vomiting. No hematemesis, coffee-ground emesis. No rectal bleeding, or melena. Patient reports to dark stools, is currently on oral and parenteral iron at home. GENITOURINARY: No dysuria or hematuria. MUSCULOSKELETAL: Reports normal range of motion. Excuse SKIN: No rashes. No jaundice. ENDOCRINE: No chills, fevers. No excessive weight gain or loss. No polydipsia or polyuria. PSYCHIATRIC: Unremarkable. NEUROLOGY: No change in mental status. Dizziness. ENT: Vision unremarkable. CONSTITUTIONAL: No recent weight loss. No fever, chills, night sweats. Past Medical History Past Medical History: Blood Disorder, Cancer, CVA/TIA, Diabetes Mellitus, Deep Vein Thrombosis (DVT), GI Bleed, Hyperlipidemia, Hypertension, Skin Disorder, Thyroid Disorder Additional Past Medical History / Comment(s): Recent nodule found on lung during PET scan.CLL/SLL-chemo 2012, narcolepsy, Type II NIDDM, "I had an episode of not being able to breathe and they said it was my heart.", hx of anemia, passing blood, now and then, from rectum. "When they did the colonoscopy they found something as big as a golf ball.""They took biopies of it." "Dr. Escobedo said it looked suspicious." "Dr. Carrillo wants to hold off on surgery for that until my lung issue is taken care of.""Dark spots all over my skin from the CLL." 2008- pt had TIA in sleep-no residual effects. Pt states AAA. anemia History of Any Multi-Drug Resistant Organisms: None Reported Past Surgical History: Hysterectomy, Orthopedic Surgery Additional Past Surgical History / Comment(s): right armpit lymph removed 03/01 the size of a golf ball, colonoscopy, scope lt knee, cataract surgery. Past Anesthesia/Blood Transfusion Reactions: No Reported Reaction, Postoperative Nausea & Vomiting (PONV) Past Psychological History: Anxiety Smoking Status: Former smoker Past Alcohol Use History: None Reported Past Drug Use History: None Reported - Past Family History Mother Family Medical History: Diabetes Mellitus Father Family Medical History: Cancer Additional Family Medical History / Comment(s): lung cancer. Sister(s) Family Medical History: CVA/TIA Brother(s) Family Medical History: No Reported History Son(s) Family Medical History: No Reported History Daughter(s) Family Medical History: No Reported History Medications and Allergies Home Medications Medication Instructions Recorded Confirmed Type Aspirin 81 mg PO DAILY 05/09/14 07/19/24 History atenoloL [Tenormin] 25 mg PO HS 05/24/14 07/19/24 History Levothyroxine Sodium [Synthroid] 50 mcg PO DAILY 02/11/16 07/19/24 History Famotidine 40 mg PO DAILY 02/12/16 07/19/24 History Dextroamphetamine/Amphetamine 20 mg PO BID 08/05/16 07/19/24 History [Adderall] Losartan [Cozaar] 50 mg PO DAILY 06/27/19 07/19/24 History amLODIPine [Norvasc] 5 mg PO HS 06/27/19 07/19/24 History Atorvastatin [Lipitor] 40 mg PO HS 10/22/23 07/19/24 History Cholecalciferol [Vitamin D3 (25 25 mcg PO DAILY 07/19/24 07/19/24 History Mcg = 1000 Iu)] Ipratropium-Albuterol Nebulize 3 ml INHALATION RT-Q4H PRN 07/19/24 07/19/24 History [Duoneb 0.5 mg-3 mg/3 ml Soln] Allergies Allergy/AdvReac Type Severity Reaction Status Date / Time latex Allergy Itching/aishwarya Verified 07/19/24 20:55 h Sulfa (Sulfonamide Allergy Sneezing, Verified 07/19/24 20:55 Antibiotics) bloodshot eyes, Itching Physical Exam Vitals: Vital Signs Temp Pulse Pulse Resp BP BP Pulse Ox 07/20/24 12:02 97.6 F 84 16 119/53 97 07/20/24 09:25 90 L 07/20/24 07:54 98.2 F 89 16 127/63 94 L 07/20/24 04:06 98.3 F 68 16 108/59 07/20/24 00:47 98.1 F 67 18 111/58 97 07/20/24 00:27 98.2 F 72 18 109/52 97 07/20/24 00:20 98.7 F 67 18 112/62 07/19/24 23:31 98.2 F 64 16 126/70 97 07/19/24 23:15 98.3 F 67 20 127/56 96 07/19/24 21:57 98.4 F 89 16 133/75 98 07/19/24 18:12 98.5 F 99 20 129/67 95 Intake and Output 07/19/24 07/20/24 07/20/24 22:59 06:59 14:59 Intake Total 781 835 9873 Balance 979 938 6377 Intake: Oral 622 292 3727 Blood Product 310 Rc Irr As1 Unit 310 [id number] Other: # Voids 3 5 Weight 65.771 kg General appearance: The patient is alert, oriented, appears in no acute distress. Nasal cannula. HET: Head is normocephalic and atraumatic. Conjunctiva pink. Sclera anicteric. Neck: Supple without lymphadenopathy. Trachea midline. Heart: Regular. Lungs: Equal expansion, normal respiratory effort. Abdomen: Soft, nontender, nondistended. Skin: No rashes. No jaundice. Extremities: Normal skin color and turgor. No pedal edema. Neurological: No focal deficits. Alert and oriented x3. Results CBC & Chem 7: 07/20/24 08:51 07/20/24 08:51 Labs: Abnormal Lab Results - Last 24 Hours (Table) 07/19/24 07/19/24 07/19/24 Range/Units 18:21 18:21 18:21 RBC (4.10-5.20) X 10*6/uL Hgb 7.0 L (11.4-16.0) gm/dL Hct 25.6 L (34.0-46.0) % MCV 64.0 L (80.0-100.0) fL MCH 17.5 L (25.0-35.0) pg MCHC 27.3 L (31.0-37.0) g/dL RDW 19.5 H (11.5-15.5) % Plt Count 500 H (150-450) k/uL MPV (9.5-12.2) FL Immature Gran # (0.00-0.04) X 10*3/uL Lymphocytes # 0.6 L (1.0-4.8) k/uL Eosinophils # (0.04-0.35) X 10*3/uL Microcytosis (manual) (None Seen) Elliptocytes (None Seen) APTT 30.9 H (22.0-30.0) sec Sodium 133 L (137-145) mmol/L Potassium 3.3 L (3.5-5.1) mmol/L Chloride 95 L (98-107) mmol/L Carbon Dioxide 31 H (22-30) mmol/L Anion Gap (4.00-12.00) mmol/L Glucose 128 H (74-99) mg/dL POC Glucose (mg/dL) (70-110) mg/dL Total Protein 5.8 L (6.3-8.2) g/dL Albumin 3.2 L (3.5-5.0) g/dL Crossmatch 03/03/25 03/03/25 03/03/25 Range/Units 21:00 21:29 22:49 RBC (4.10-5.20) X 10*6/uL Hgb 7.0 L (11.4-16.0) gm/dL Hct 24.5 L (34.0-46.0) % MCV 64.2 L (80.0-100.0) fL MCH 18.3 L (25.0-35.0) pg MCHC 28.6 L (31.0-37.0) g/dL RDW 19.6 H (11.5-15.5) % Plt Count 466 H (150-450) k/uL MPV (9.5-12.2) FL Immature Gran # (0.00-0.04) X 10*3/uL Lymphocytes # 0.7 L (1.0-4.8) k/uL Eosinophils # (0.04-0.35) X 10*3/uL Microcytosis (manual) (None Seen) Elliptocytes (None Seen) APTT (22.0-30.0) sec Sodium (137-145) mmol/L Potassium (3.5-5.1) mmol/L Chloride (98-107) mmol/L Carbon Dioxide (22-30) mmol/L Anion Gap (4.00-12.00) mmol/L Glucose (74-99) mg/dL POC Glucose (mg/dL) 164 H (70-110) mg/dL Total Protein (6.3-8.2) g/dL Albumin (3.5-5.0) g/dL Crossmatch See Detail 07/20/24 07/20/24 07/20/24 Range/Units 06:12 06:12 07:16 RBC 3.85 L (4.10-5.20) X 10*6/uL Hgb 7.4 L (11.4-16.0) gm/dL Hct 26.2 L (34.0-46.0) % MCV 68.1 L (80.0-100.0) fL MCH 19.2 L (25.0-35.0) pg MCHC 28.2 L (31.0-37.0) g/dL RDW 24.5 H (11.5-15.5) % Plt Count (150-450) k/uL MPV 8.9 L (9.5-12.2) FL Immature Gran # 0.10 H (0.00-0.04) X 10*3/uL Lymphocytes # 0.61 L (1.0-4.8) k/uL Eosinophils # 0.36 H (0.04-0.35) X 10*3/uL Microcytosis (manual) 2+ A (None Seen) Elliptocytes 2+ A (None Seen) APTT (22.0-30.0) sec Sodium (137-145) mmol/L Potassium (3.5-5.1) mmol/L Chloride (98-107) mmol/L Carbon Dioxide (22-30) mmol/L Anion Gap 12.10 H (4.00-12.00) mmol/L Glucose (74-99) mg/dL POC Glucose (mg/dL) 210 H (70-110) mg/dL Total Protein (6.3-8.2) g/dL Albumin (3.5-5.0) g/dL Crossmatch 07/20/24 07/20/24 07/20/24 Range/Units 08:51 08:51 12:13 RBC (4.10-5.20) X 10*6/uL Hgb 7.9 L (11.4-16.0) gm/dL Hct 27.2 L (34.0-46.0) % MCV 68.7 L (80.0-100.0) fL MCH 19.9 L (25.0-35.0) pg MCHC 29.0 L (31.0-37.0) g/dL RDW 21.5 H (11.5-15.5) % Plt Count (150-450) k/uL MPV (9.5-12.2) FL Immature Gran # (0.00-0.04) X 10*3/uL Lymphocytes # 0.6 L (1.0-4.8) k/uL Eosinophils # (0.04-0.35) X 10*3/uL Microcytosis (manual) (None Seen) Elliptocytes (None Seen) APTT (22.0-30.0) sec Sodium 135 L (137-145) mmol/L Potassium (3.5-5.1) mmol/L Chloride (98-107) mmol/L Carbon Dioxide 33 H (22-30) mmol/L Anion Gap (4.00-12.00) mmol/L Glucose 165 H (74-99) mg/dL POC Glucose (mg/dL) 195 H (70-110) mg/dL Total Protein (6.3-8.2) g/dL Albumin (3.5-5.0) g/dL Crossmatch Chest x-ray: report reviewed (Improving right upper lung patchy airspace opacities. Similar medial right basilar opacity. COPD changes.) Assessment and Plan (1) Chronic anemia Narrative/Plan: 84-year-old female with history of CLL post radiation, rectal cancer status post surgery in October 2022, lung cancer and recent diagnosis of pneumonia presented to to the emergency department with complaints of shortness of breath and requiring oxygen supplementation. Patient was noted to have anemia on admission, right microcytic anemia. This is in a patient with history of chronic iron deficiency anemia on parenteral infusions and oral iron replacement. Possible acute on chronic anemia. Appears baseline hemoglobin around 8 or 9, hemoglobin currently stable at 7.9. Reported 2 episodes of dark stool about 2 weeks apart post oral iron, 1 to 2 weeks ago and 1 this past Friday. Not convincing for current GI bleed. Will continue to monitor for symptoms of GI bleed and CBC. Current Visit: Yes Status: Acute Code(s): D64.9 - ANEMIA, UNSPECIFIED SNOMED Code(s): 436613861 (2) CLL (chronic lymphocytic leukemia) Current Visit: Yes Status: Acute Code(s): C91.10 - CHRONIC LYMPHOCYTIC LEUK OF B-CELL TYPE NOT ACHIEVE REMIS SNOMED Code(s): 33925619 (3) History of rectal cancer Current Visit: Yes Status: Acute Code(s): Z85.048 - PRSNL HX OF MALIG NEOPLM OF RECTUM, RECTOSIG JUNCT, AND ANUS SNOMED Code(s): 952399724 (4) COPD (chronic obstructive pulmonary disease) Current Visit: Yes Status: Acute Code(s): J44.9 - CHRONIC OBSTRUCTIVE PULMONARY DISEASE, UNSPECIFIED SNOMED Code(s): 09521593 (5) Lung cancer Current Visit: Yes Status: Acute Code(s): C34.90 - MALIGNANT NEOPLASM OF UNSP PART OF UNSP BRONCHUS OR LUNG SNOMED Code(s): 466451805 (6) Shortness of breath Current Visit: Yes Status: Acute Code(s): R06.02 - SHORTNESS OF BREATH SNOMED Code(s): 820955495 (7) Pneumonia Current Visit: Yes Status: Acute Code(s): J18.9 - PNEUMONIA, UNSPECIFIED ORGANISM SNOMED Code(s): 793233009 Plan: 1. Continue symptomatic and supportive care 2. Diet as tolerated 3. Daily CBC, transfuse for hemoglobin less than 7 4. Continue iron per recommendations from hematology 5. Continue management for COPD/pneumonia 6. No plans for endoscopic evaluation at this time Thank you for this consultation, we will continue to follow. Dr. Abdirahman Escobedo I agree with the dictator's note, documented as a scribe by Elizabeth Shay.
[2024-07-20 17:08] LABS: Glucose,Whole Blood 204 mg/dL (70-110)
[2024-07-20] MEDS: AZITHROMYCIN 500 MG TAB PO SCH (18:00)
[2024-07-20 19:49] LABS: Glucose,Whole Blood 143 mg/dL (70-110)
[2024-07-20] MEDS: PANTOPRAZOLE 40 MG/10 ML VIAL IVP SCH (20:34)
--- NOTE | 2024-07-20 20:48 | P.CONS ---
History of Present Illness - Reason for Consult Consult date: 07/20/24 hx lung cancer, CLL ,anemia Requesting physician: Milton Victoria - Chief Complaint SOB, dizzy, weakness - History of Present Illness Patient is a an 84 yr old female with a significant history of lung cancer, colon cancer, and CLL, who follows with Dr Moyer. The patient was diagnosed with monoclonal lymphocytosis in . She had been on observation.In ,she noticed a right axillary node,had a CT scan of chest/abdomen/pelvis on 01/12/2014 which revealed generalized lymphadenopathies,largest in right and left axilla,about 2cm.Also she had left breast calcification. On 01/28/2014,she had excisional biopsy of right axillary node,the pathology revealed small lymphocytic lymphoma. Repeat core biopsy of large left axillary node on 05/24/2014 revealed SLL,no transformation. 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 She started treanda/rituxan on 06/15/2014. She completed 4 cycles on 09/08/2014 and decided not to proceed with additional 2 cycles. She had a excellent response to treatment, and has remained in observation. She developed iron deficiency anemia in May/2023,required parenteral iron. She was referred for GI work up,underwent colonoscopy on 08/25/2023 which showed 4-5 cm polypoid lesion in rectosigmoid at 21 cm from anal verge,biopsy was positive for villous adenoma with at least high grade dysplasia suspicious for focal invasion. On 10/05/2023,PET scan showed uptake in 2.1 cm RLL lung nodule,in sigmoid colon,low SUV uptake in generalized adenopathies. 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 On 10/29/2023,she underwent sigmoidectomy pathology revealed moderately differentiated invasive adenocarcinoma,pT3,no LVI,no macro perforation,no pe rineural invasion,14 nodes were negative for carcinoma. She completed SBRT to RLL lung cancer in . Iron studies in clinic on 06/15/24 showed iron sat 10%, ferritin 105. Parenteral iron ordered, received her first dose of 3 of Venofer 300mg on 07/13/24. Patient presented to the emergency room for shortness of breath, dizziness, weakness and nausea. Upon admit hemoglobin was noted at 7.0, MCV 64.0, MCHC 27.3. WBC 6.3, platelets 500,000. Patient was given 1 unit PRBCs overnight. Repeat hemoglobin today 7.9. Patient does report improvement of symptoms but does report some shortness of breath and dizziness upon standing. Patient also reports she had a melanotic stool this morning. Denies abdominal pain. Chest x-ray did reveal right upper lung airspace opacities concerning for pneumonia. Patient has been started on antibiotics. Patient is afebrile Review of Systems 10 point ROS is negative except as stated in the HPI Past Medical History Past Medical History: Blood Disorder, Cancer, CVA/TIA, Diabetes Mellitus, Deep Vein Thrombosis (DVT), GI Bleed, Hyperlipidemia, Hypertension, Skin Disorder, Thyroid Disorder Additional Past Medical History / Comment(s): Recent nodule found on lung during PET scan.CLL/SLL-chemo 2012, narcolepsy, Type II NIDDM, "I had an episode of not being able to breathe and they said it was my heart.", hx of anemia, passing blood, now and then, from rectum. "When they did the colonoscopy they found something as big as a golf ball.""They took biopies of it." "Dr. Escobedo said it looked suspicious." "Dr. Carrillo wants to hold off on surgery for that until my lung issue is taken care of.""Dark spots all over my skin from the CLL." 2008- pt had TIA in sleep-no residual effects. Pt states AAA. anemia History of Any Multi-Drug Resistant Organisms: None Reported Past Surgical History: Hysterectomy, Orthopedic Surgery Additional Past Surgical History / Comment(s): right armpit lymph removed 03/01 the size of a golf ball, colonoscopy, scope lt knee, cataract surgery. Past Anesthesia/Blood Transfusion Reactions: No Reported Reaction, Postoperative Nausea & Vomiting (PONV) Past Psychological History: Anxiety Smoking Status: Former smoker Past Alcohol Use History: None Reported Past Drug Use History: None Reported - Past Family History Mother Family Medical History: Diabetes Mellitus Father Family Medical History: Cancer Additional Family Medical History / Comment(s): lung cancer. Sister(s) Family Medical History: CVA/TIA Brother(s) Family Medical History: No Reported History Son(s) Family Medical History: No Reported History Daughter(s) Family Medical History: No Reported History Medications and Allergies Home Medications Medication Instructions Recorded Confirmed Type Aspirin 81 mg PO DAILY 05/09/14 07/19/24 History atenoloL [Tenormin] 25 mg PO HS 05/24/14 07/19/24 History Levothyroxine Sodium [Synthroid] 50 mcg PO DAILY 02/11/16 07/19/24 History Famotidine 40 mg PO DAILY 02/12/16 07/19/24 History Dextroamphetamine/Amphetamine 20 mg PO BID 08/05/16 07/19/24 History [Adderall] Losartan [Cozaar] 50 mg PO DAILY 06/27/19 07/19/24 History amLODIPine [Norvasc] 5 mg PO HS 06/27/19 07/19/24 History Atorvastatin [Lipitor] 40 mg PO HS 10/22/23 07/19/24 History Cholecalciferol [Vitamin D3 (25 25 mcg PO DAILY 07/19/24 07/19/24 History Mcg = 1000 Iu)] Ipratropium-Albuterol Nebulize 3 ml INHALATION RT-Q4H PRN 07/19/24 07/19/24 History [Duoneb 0.5 mg-3 mg/3 ml Soln] Allergies Allergy/AdvReac Type Severity Reaction Status Date / Time latex Allergy Itching/aishwarya Verified 07/19/24 20:55 h Sulfa (Sulfonamide Allergy Sneezing, Verified 07/19/24 20:55 Antibiotics) bloodshot eyes, Itching Physical Exam Vitals: Vital Signs Temp Pulse Pulse Resp BP BP Pulse Ox 07/20/24 12:02 97.6 F 84 16 119/53 97 07/20/24 09:25 90 L 07/20/24 07:54 98.2 F 89 16 127/63 94 L 07/20/24 04:06 98.3 F 68 16 108/59 07/20/24 00:47 98.1 F 67 18 111/58 97 07/20/24 00:27 98.2 F 72 18 109/52 97 07/20/24 00:20 98.7 F 67 18 112/62 07/19/24 23:31 98.2 F 64 16 126/70 97 07/19/24 23:15 98.3 F 67 20 127/56 96 07/19/24 21:57 98.4 F 89 16 133/75 98 07/19/24 18:12 98.5 F 99 20 129/67 95 Intake and Output 07/19/24 07/20/24 07/20/24 22:59 06:59 14:59 Intake Total 120 900 240 Balance 120 900 240 Intake: Oral 120 590 240 Blood Product 310 Rc Irr As1 Unit 310 [id number] Other: # Voids 3 Weight 65.771 kg - Constitutional General appearance: average body habitus, no acute distress - EENT Eyes: anicteric sclerae, EOMI ENT: hearing grossly normal - Respiratory Respiratory: bilateral: CTA - Cardiovascular skin warm and dry - Gastrointestinal General gastrointestinal: soft, no tenderness - Integumentary Integumentary: no cyanotic, no jaundiced, pale - Psychiatric Psychiatric: A&O x's 3 Results CBC & Chem 7: 07/20/24 08:51 07/20/24 08:51 Labs: Abnormal Lab Results - Last 24 Hours (Table) 07/19/24 07/19/24 07/19/24 Range/Units 18:21 18:21 18:21 RBC (4.10-5.20) X 10*6/uL Hgb 7.0 L (11.4-16.0) gm/dL Hct 25.6 L (34.0-46.0) % MCV 64.0 L (80.0-100.0) fL MCH 17.5 L (25.0-35.0) pg MCHC 27.3 L (31.0-37.0) g/dL RDW 19.5 H (11.5-15.5) % Plt Count 500 H (150-450) k/uL MPV (9.5-12.2) FL Lymphocytes # 0.6 L (1.0-4.8) k/uL APTT 30.9 H (22.0-30.0) sec Sodium 133 L (137-145) mmol/L Potassium 3.3 L (3.5-5.1) mmol/L Chloride 95 L (98-107) mmol/L Carbon Dioxide 31 H (22-30) mmol/L Anion Gap (4.00-12.00) mmol/L Glucose 128 H (74-99) mg/dL POC Glucose (mg/dL) (70-110) mg/dL Total Protein 5.8 L (6.3-8.2) g/dL Albumin 3.2 L (3.5-5.0) g/dL Crossmatch 07/19/24 07/19/24 07/19/24 Range/Units 21:00 21:29 22:49 RBC (4.10-5.20) X 10*6/uL Hgb 7.0 L (11.4-16.0) gm/dL Hct 24.5 L (34.0-46.0) % MCV 64.2 L (80.0-100.0) fL MCH 18.3 L (25.0-35.0) pg MCHC 28.6 L (31.0-37.0) g/dL RDW 19.6 H (11.5-15.5) % Plt Count 466 H (150-450) k/uL MPV (9.5-12.2) FL Lymphocytes # 0.7 L (1.0-4.8) k/uL APTT (22.0-30.0) sec Sodium (137-145) mmol/L Potassium (3.5-5.1) mmol/L Chloride (98-107) mmol/L Carbon Dioxide (22-30) mmol/L Anion Gap (4.00-12.00) mmol/L Glucose (74-99) mg/dL POC Glucose (mg/dL) 164 H (70-110) mg/dL Total Protein (6.3-8.2) g/dL Albumin (3.5-5.0) g/dL Crossmatch See Detail 07/20/24 07/20/24 07/20/24 Range/Units 06:12 06:12 07:16 RBC 3.85 L (4.10-5.20) X 10*6/uL Hgb 7.4 L (11.4-16.0) gm/dL Hct 26.2 L (34.0-46.0) % MCV 68.1 L (80.0-100.0) fL MCH 19.2 L (25.0-35.0) pg MCHC 28.2 L (31.0-37.0) g/dL RDW 24.5 H (11.5-15.5) % Plt Count (150-450) k/uL MPV 8.9 L (9.5-12.2) FL Lymphocytes # (1.0-4.8) k/uL APTT (22.0-30.0) sec Sodium (137-145) mmol/L Potassium (3.5-5.1) mmol/L Chloride (98-107) mmol/L Carbon Dioxide (22-30) mmol/L Anion Gap 12.10 H (4.00-12.00) mmol/L Glucose (74-99) mg/dL POC Glucose (mg/dL) 210 H (70-110) mg/dL Total Protein (6.3-8.2) g/dL Albumin (3.5-5.0) g/dL Crossmatch 07/20/24 07/20/24 Range/Units 08:51 08:51 RBC (4.10-5.20) X 10*6/uL Hgb 7.9 L (11.4-16.0) gm/dL Hct 27.2 L (34.0-46.0) % MCV 68.7 L (80.0-100.0) fL MCH 19.9 L (25.0-35.0) pg MCHC 29.0 L (31.0-37.0) g/dL RDW 21.5 H (11.5-15.5) % Plt Count (150-450) k/uL MPV (9.5-12.2) FL Lymphocytes # 0.6 L (1.0-4.8) k/uL APTT (22.0-30.0) sec Sodium 135 L (137-145) mmol/L Potassium (3.5-5.1) mmol/L Chloride (98-107) mmol/L Carbon Dioxide 33 H (22-30) mmol/L Anion Gap (4.00-12.00) mmol/L Glucose 165 H (74-99) mg/dL POC Glucose (mg/dL) (70-110) mg/dL Total Protein (6.3-8.2) g/dL Albumin (3.5-5.0) g/dL Crossmatch Abdominal x-ray: report reviewed Assessment and Plan (1) Anemia Current Visit: Yes Status: Acute Code(s): D64.9 - ANEMIA, UNSPECIFIED SNOMED Code(s): 736892693 (2) CLL (chronic lymphocytic leukemia) Current Visit: Yes Status: Acute Code(s): C91.10 - CHRONIC LYMPHOCYTIC LEUK OF B-CELL TYPE NOT ACHIEVE REMIS SNOMED Code(s): 42611534 (3) History of rectal cancer Current Visit: Yes Status: Acute Code(s): Z85.048 - PRSNL HX OF MALIG NEOPLM OF RECTUM, RECTOSIG JUNCT, AND ANUS SNOMED Code(s): 493669674 (4) Lung cancer Current Visit: Yes Status: Acute Code(s): C34.90 - MALIGNANT NEOPLASM OF UNSP PART OF UNSP BRONCHUS OR LUNG SNOMED Code(s): 837287691 (5) Pneumonia Current Visit: Yes Status: Acute Code(s): J18.9 - PNEUMONIA, UNSPECIFIED ORGANISM SNOMED Code(s): 033699341 Plan: Microcytic hypochromic anemia: History of iron deficiency anemia. Presented to the emergency room for shortness of breath, dizziness, weakness and nausea. Iron studies in clinic on 06/15/24 showed iron sat 10%, ferritin 105. Parenteral iron ordered, received her first dose of 3 of Venofer 300mg on 07/13/24. Patient also reports she had a melanotic stool this morning -Upon admit hemoglobin was noted at 7.0, MCV 64.0, MCHC 27.3. WBC 6.3, platelets 500,000. Patient was given 1 unit PRBCs overnight. Repeat hemoglobin today 7.9. Patient does report improvement of symptoms but does report some shortness of breath and dizziness upon standing. -Pt was scheduled tomorrow for 2nd dose of venofer. Will order parenteral iron while inpt -PPI BID started -GI consulted for endoscopic evaluation -Continue to monitor CBC. Transfuse for hgb less than 7 or if symptomatic Hx colorectal carcinoma, lung cancer and CLL: -Oncology history as dictated in the HPI -Completed treatment for CLL in 2014, remained in observation for the same -Underwent SBRT to lung in January 2024, and had sigmoidectomy in October 2023, did not undergo systemic treatment. -Plan to continue in observation for noted malignancies
[2024-07-21 07:20] LABS: Glucose,Whole Blood 109 mg/dL (70-110)
[2024-07-21 09:24] LABS: Basophils # (A) 0.05 X 10*3/uL (0.00-0.10); Basophils % (A) 0.8 %; Eosinophils # (A) 0.45 X 10*3/uL (0.04-0.35); Eosinophils % (A) 7.5 %; HCT 25.4 % (37.2-46.3); HGB 7.4 g/dL (12.0-15.0); Lymphocytes # (A) 0.59 X 10*3/uL (0.90-5.00); Lymphocytes % (A) 9.8 %; MCH 19.7 pg (27.0-32.0); MCHC 29.1 g/dL (32.0-37.0); MCV 67.6 FL (80.0-97.0); Mean Platelet Volume 9.4 FL (9.5-12.2); Monocytes # (A) 0.85 X 10*3/uL (0.20-1.00); Monocytes % (A) 14.1 %; NRBC Per 100 WBC 0 X 10*3/uL (0.00-0.01); Neutrophils # (A) 3.98 X 10*3/uL (1.80-7.70); Neutrophils % (A) 66.3 %; Platelet Count 356 X 10*3/uL (140-440); RBC 3.76 X 10*6/uL (4.10-5.20); RDW 23.5 % (11.5-14.5); WBC 6.01 X 10*3/uL (4.50-10.00)
[2024-07-21] MEDS ORDERED: CALCIUM CARBONATE 500 MG CHEWABLE PO PRN (11:54)
[2024-07-21 12:12] LABS: Glucose,Whole Blood 112 mg/dL (70-110)
[2024-07-21 13:23] VITALS: BP 146/71; PULSE 68; RESP 18; TEMP 98.2
--- NOTE | 2024-07-21 19:14 | P.PN ---
Subjective Progress Note Date: 07/21/24 No acute events overnight. Denies any melena or blood stools today. Hgb stable at 7.4. Gi has seen pt, no plan for scopes at this time Continues IV iron. Pt requesting to be discharged today Objective - Vital Signs Vital signs: Vital Signs Temp 98.6 F 07/21/24 07:21 Pulse 67 07/21/24 11:46 Resp 16 07/21/24 07:21 BP 145/63 07/21/24 07:21 Pulse Ox 95 07/21/24 11:46 FiO2 Intake & Output 07/20/24 07/21/24 07/21/24 18:59 06:59 18:59 Intake Total 1560 Balance 1560 Intake: Oral 1560 Other: Voiding Method Toilet # Voids 5 2 # Bowel Movements 1 - Constitutional General appearance: Present: no acute distress - EENT Eyes: Present: anicteric sclerae, EOMI ENT: Present: hearing grossly normal - Respiratory Details: breathing is even and unlabored - Cardiovascular Details: skin warm and dry - Gastrointestinal General gastrointestinal: Present: soft. Absent: tenderness - Integumentary Integumentary: Absent: cyanotic, jaundiced - Psychiatric Psychiatric: Present: A&O x's 3 - Labs CBC & Chem 7: 07/21/24 05:40 07/20/24 08:51 Labs: Abnormal Lab Results - Last 24 Hours (Table) 07/20/24 07/20/24 07/20/24 Range/Units 06:12 12:13 17:06 RBC (4.10-5.20) X 10*6/uL Hgb (12.0-15.0) g/dL Hct (37.2-46.3) % MCV (80.0-97.0) FL MCH (27.0-32.0) pg MCHC (32.0-37.0) g/dL RDW (11.5-14.5) % MPV (9.5-12.2) FL Immature Gran # 0.10 H (0.00-0.04) X 10*3/uL Lymphocytes # 0.61 L (0.90-5.00) X 10*3/uL Eosinophils # 0.36 H (0.04-0.35) X 10*3/uL Microcytosis (manual) 2+ A (None Seen) Elliptocytes 2+ A (None Seen) POC Glucose (mg/dL) 195 H 204 H (70-110) mg/dL 07/20/24 07/21/24 Range/Units 19:45 05:40 RBC 3.76 L (4.10-5.20) X 10*6/uL Hgb 7.4 L (12.0-15.0) g/dL Hct 25.4 L (37.2-46.3) % MCV 67.6 L (80.0-97.0) FL MCH 19.7 L (27.0-32.0) pg MCHC 29.1 L (32.0-37.0) g/dL RDW 23.5 H (11.5-14.5) % MPV 9.4 L (9.5-12.2) FL Immature Gran # 0.09 H (0.00-0.04) X 10*3/uL Lymphocytes # 0.59 L (0.90-5.00) X 10*3/uL Eosinophils # 0.45 H (0.04-0.35) X 10*3/uL Microcytosis (manual) (None Seen) Elliptocytes (None Seen) POC Glucose (mg/dL) 143 H (70-110) mg/dL Microbiology - Last 24 Hours (Table) 07/19/24 21:00 Blood Culture - Preliminary Blood Assessment and Plan (1) Anemia Status: Acute Code(s): D64.9 - ANEMIA, UNSPECIFIED SNOMED Code(s): 750339467 (2) CLL (chronic lymphocytic leukemia) Status: Acute Code(s): C91.10 - CHRONIC LYMPHOCYTIC LEUK OF B-CELL TYPE NOT ACHIEVE REMIS SNOMED Code(s): 83582012 (3) History of rectal cancer Status: Acute Code(s): Z85.048 - PRSNL HX OF MALIG NEOPLM OF RECTUM, RECTOSIG JUNCT, AND ANUS SNOMED Code(s): 883132144 (4) Lung cancer Status: Acute Code(s): C34.90 - MALIGNANT NEOPLASM OF UNSP PART OF UNSP BRONCHUS OR LUNG SNOMED Code(s): 332411905 (5) Pneumonia Status: Acute Code(s): J18.9 - PNEUMONIA, UNSPECIFIED ORGANISM SNOMED Code(s): 752393110 Plan: Microcytic hypochromic anemia: History of iron deficiency anemia. Presented to the emergency room for shortness of breath, dizziness, weakness and nausea. Iron studies in clinic on 06/15/24 showed iron sat 10%, ferritin 105. Parenteral iron ordered, received her first dose of 3 of Venofer 300mg on 07/13/24. Patient also reports she had a melanotic stool this morning -Upon admit hemoglobin was noted at 7.0, MCV 64.0, MCHC 27.3. WBC 6.3, pl atelets 500,000. Patient was given 1 unit PRBCs overnight. Repeat hemoglobin today 7.9. Patient does report improvement of symptoms but does report some shortness of breath and dizziness upon standing. -Pt was scheduled tomorrow for 2nd dose of venofer. Will order parenteral iron while inpt. 3rd dose of venofer scheduled for next week -PPI BID started -GI consulted for endoscopic evaluation, no plan for scopes at this time. Case discussed with GI team today -No reported further episodes of rectal bleeding/melena. Hgb stable today at 7.4 -Continue to monitor CBC. Transfuse for hgb less than 7 or if symptomatic Hx colorectal carcinoma, lung cancer and CLL: -Oncology history as dictated in the HPI -Completed treatment for CLL in 2014, remained in observation for the same -Underwent SBRT to lung in January 2024, and had sigmoidectomy in October 2023, did not undergo systemic treatment. -Plan to continue in observation for noted malignancies
--- NOTE | 2024-07-23 21:38 | P.DS ---
Providers Date of admission: 07/19/24 20:06 Expected date of discharge: 07/21/24 Attending physician: MD TOM Tate MD Consults: 07/19/24 19:58 Consult Physician Routine Consulting Provider: Nida Hurst Consult Reason/Comments: History of CLL and lung cancer, anemia Do you want consulting provider notified?: Yes 07/20/24 12:05 Consult Physician Routine Consulting Provider: Layla Escobedo Consult Reason/Comments: melena, MILADYS Do you want consulting provider notified?: Yes Primary care physician: [facility] Course: Patient is an 84-year-old female with CLL diagnosed in [address] Moyer most recent radiation in March, COPD, diabetes mellitus, hypertension, hyperlipidemia who presents with shortness of breath. Patient states that symptoms began 1 week ago with fevers, nonproductive cough, dizziness and generalized weakness. 1 week ago she was started on Levaquin for treatment of pneumonia which she finished yesterday. She states this did not improve her symptoms. During this time she has also had loss of appetite and is eating less than normal. She also reports some acid reflux and nausea during this time. Patient reports absence of chest pain, palpitations, diaphoresis, abdominal pain, vomiting, constipation, diarrhea, myalgia, headache, and dysuria. Assessment: #Pneumonia, unspecified organism #COPD, not in exacerbation #Metabolic alkalosis #CLL #Microcytic anemia #Hypokalemia #Hyponatremia hypovolemic, likely due to dehydration #Diabetes mellitus, type 2 - CXR findings of right upper lung opacity - Pt was on rocephin while admitted - Transitioned to oral abx - Stable for discharge baseline Hgb around 10-[address] Moyer Receiving regular iron infusions Given 1u pRBC Monitor CBC Oncology recommends outpatient follow up Chronic Medical Conditions #Essential hypertension - Resume home Losartan, Amlodipine #Hyperlidemia - Resume home Atorvastatin #Hypothyroidism - Resume home Synthroid #GERD- Resume home famotidine Plan - Discharge Summary New Discharge Prescriptions: New Amoxic-Pot Clav 875-125Mg [Augmentin 875-125] 1 tab PO Q12HR 5 Days #10 tab No Action Aspirin 81 mg PO DAILY atenoloL [Tenormin] 25 mg PO HS Levothyroxine Sodium [Synthroid] 50 mcg PO DAILY Famotidine 40 mg PO DAILY Dextroamphetamine/Amphetamine [Adderall] 20 mg PO BID amLODIPine [Norvasc] 5 mg PO HS Losartan [Cozaar] 50 mg PO DAILY Cholecalciferol [Vitamin D3 (25 Mcg = 1000 Iu)] 25 mcg PO DAILY Ipratropium-Albuterol Nebulize [Duoneb 0.5 mg-3 mg/3 ml Soln] 3 ml INHALATION RT-Q4H PRN PRN Reason: Shortness Of Breath Atorvastatin [Lipitor] 40 mg PO HS Discharge Medication List Aspirin 81 mg PO DAILY 05/09/14 [History] atenoloL [Tenormin] 25 mg PO HS 05/24/14 [History] Levothyroxine Sodium [Synthroid] 50 mcg PO DAILY 02/11/16 [History] Famotidine 40 mg PO DAILY 02/12/16 [History] Dextroamphetamine/Amphetamine [Adderall] 20 mg PO BID 08/05/16 [History] Losartan [Cozaar] 50 mg PO DAILY 06/27/19 [History] amLODIPine [Norvasc] 5 mg PO HS 06/27/19 [History] Atorvastatin [Lipitor] 40 mg PO HS 10/22/23 [History] Cholecalciferol [Vitamin D3 (25 Mcg = 1000 Iu)] 25 mcg PO DAILY 07/19/24 [History] Ipratropium-Albuterol Nebulize [Duoneb 0.5 mg-3 mg/3 ml Soln] 3 ml INHALATION RT-Q4H PRN 07/19/24 [History] Amoxic-Pot Clav 875-125Mg [Augmentin 875-125] 1 tab PO Q12HR 5 Days #10 tab 07/21/24 [Rx] Follow up Appointment(s)/Referral(s): Federico Bell DO [Primary Care Provider] - 07/27/24 1:20 pm (You will be seen at the [place] office. [address] [facility]) Patient Instructions/Handouts: Amoxicillin/Clavulanate Potassium (By mouth), Anemia (DC), Pneumonia (DC) Discharge Disposition: HOME SELF-CARE
== END 2024-07-21 15:01 | disposition home or self-care (01) ==
LOC: EC 18:03 → INTOOBSV 20:06 → 5NMEDONC 20:06
PROVIDERS: ADMIT Internal Medicine; ATTEND Internal Medicine
DX: J18.9 Pneumonia, unspecified organism (principal); D50.9 Iron deficiency anemia, unspecified; J44.9 Chronic obstructive pulmonary disease, unspecified; E87.3 Alkalosis; E87.6 Hypokalemia; E86.1 Hypovolemia; E87.1 Hypo-osmolality and hyponatremia; E03.9 Hypothyroidism, unspecified; K21.9 Gastro-esophageal reflux disease without esophagitis; E11.9 Type 2 diabetes mellitus without complications; I10 Essential (primary) hypertension; E78.5 Hyperlipidemia, unspecified; F41.9 Anxiety disorder, unspecified; Z85.048 Personal history of other malignant neoplasm of rectum, rectosigmoid junction, and anus; Z85.118 Personal history of other malignant neoplasm of bronchus and lung; Z85.6 Personal history of leukemia; Z86.718 Personal history of other venous thrombosis and embolism; Z86.73 Personal history of transient ischemic attack (TIA), and cerebral infarction without residual deficits; Z87.891 Personal history of nicotine dependence; Z90.49 Acquired absence of other specified parts of digestive tract; Z92.21 Personal history of antineoplastic chemotherapy; Z92.3 Personal history of irradiation; Z79.82 Long term (current) use of aspirin; Z79.84 Long term (current) use of oral hypoglycemic drugs; Z79.890 Hormone replacement therapy; Z79.899 Other long term (current) drug therapy; Z88.2 Allergy status to sulfonamides; Z91.040 Latex allergy status
CPT/HCPCS: 96376; 96366 ×3; 96367; 96372; 96375; 36430; 96368; 96365; 99285; 36415; 93005; 86900; 86901; 80053; 80048; 87449; 83605; 83735 ×2; 84100; 84484; 85025 ×3; 85610; 85730; 86850; 86920; 87040; 87636; 71046 ×2; G0378 ×3; P9016; J1644; J0456; J0696 ×3; J2916 ×2; J2470 ×2

== ENCOUNTER → 2024-08-19 | Outpatient (CLI) | payer MEDICARE ==
--- NOTE | 2024-08-19 15:48 | MR ---
EXAMINATION TYPE: MR brain wo con DATE OF EXAM: 08/19/2024 2:04 PM COMPARISON: Correlation PET/CT 07/02/2024 CLINICAL INDICATION: Female, 84 years old with history of C34.31 MALIGNANT NEOPLASM OF LOWER LOBE, RI GHT BRO, Lung cancer, Dizziness, Forgetfulness, Hx Lung cancer and blood TECHNIQUE: Multiplanar, multisequence images of the brain and brainstem were acquired without IV con trast. Patient refused administration of IV contrast. Diffusion weighted imaging is performed. Some f ast scan sequences had to be utilized as the patient was unable to hold still. FINDINGS: Patient refused IV contrast. No evidence for acute infarction, hemorrhage, mass, mass effect, midline shift, herniation, effacemen t of basal cisterns, or extra-axial fluid collection. There is mild to moderate generalized supratentorial volume loss. Mild ventriculomegaly likely due to central cerebral atrophy. T2/FLAIR weighted sequences show severe patchy bright signal change throughout both cerebral hemisphe res. Major intracranial flow voids are intact. Dominant right vertebral artery. Midline structures demonstrate normal morphology. The craniocervical junction is normal. Scattered mild mucosal thickening ethmoid air cells. Globes are intact. IMPRESSION: 1. Moderate cerebral atrophy with severe burden of chronic small vessel ischemic disease. 2. Assessment for intracranial metastases is limited without IV contrast, particularly given the back ground of severe bright white matter change. No midline shift or mass effect is identified. Consider follow-up contrast enhanced exam when patient able. [facility], , 08/19/2024 3:46 PM
== END | disposition home or self-care (01) ==
LOC: RADMRIMAIN 12:51
PROVIDERS: ATTEND Internal Medicine Hematology & Oncology
DX: C34.31 Malignant neoplasm of lower lobe, right bronchus or lung (principal); G31.9 Degenerative disease of nervous system, unspecified; I67.82 Cerebral ischemia; R90.82 White matter disease, unspecified
CPT/HCPCS: 70551

== ENCOUNTER → 2024-08-27 | Day surgery (SDC) | payer MEDICARE ==
[~2024-08-27] MED LIST changes: -DEXAMETHASONE SOD PHOSPHATE 4 MG/ML 1 ML VIAL IV ONE; -LACTATED RINGERS 1,000 ML IV SCH; -LIDOCAINE 1% (10MG/ML) FOR IV START INTRADERMA PRN; +LIDOCAINE 2% (PF) 20 MG/ML 5 ML VIAL ONE; +PROPOFOL 10 MG/ML 20 ML VIAL IV ONE; -fentaNYL (PF) 50 MCG/ML 2 ML AMP IV PRN
[2024-08-27 06:56] VITALS: TEMP 97.3
[2024-08-27] MEDS: IV FLUID CONTINUATION 1,000 ML IV ONE (07:04)
[2024-08-27] MEDS: LACTATED RINGERS 1,000 ML IV SCH (07:06)
[2024-08-27 07:08] LABS: Glucose,Whole Blood 114 mg/dL (70-110)
--- NOTE | 2024-08-27 07:43 | P.PCN ---
Date of Procedure: 08/27/24 Procedure(s) Performed: Brief history: Patient is a pleasant 84-year-old white female scheduled for an elective upper endoscopy as well as colonoscopy as a part of evaluation of iron deficiency anemia. She was diagnosed with rectosigmoid colon cancer in August 2023 and status post sigmoid colectomy. Procedure performed: Esophagogastroduodenoscopy with cautery and Endo Clip placement Colonoscopy Preoperative diagnosis: Iron deficient anemia History of rectosigmoid colon cancer diagnosed in August 2023, status post surgery Anesthesia: MAC Procedure: After informed consent was obtained from the patient was brought into the endoscopy unit and IV sedation was administered by anesthesia under continuous monitoring. Initially upper endoscopy was done. The Olympus GF 160 video endoscope was inserted inserted into the mouth and esophagus intubated without any difficulty and was gradually advanced into the stomach and duodenum and carefully examined. The bulb and second part of the duodenum had multiple angiectasia at least 10 in number which were nonbleeding: All of which were cauterized using a gold probe and one of them could not be cauterized completely because of constant oozing and hence Endo Clip was placed. The scope was then withdrawn into the stomach adequately insufflated with air and upon careful examination the antrum and body, cardia and fundus appeared normal. The scope was then withdrawn into the esophagus. The GE junction was located at 40 cm to the incisors. It appeared regular with no erythema erosions or ulcerations. Rest of the esophagus appeared normal. Patient tolerated the procedure well. At this time the patient continued to remain sedation. Initial digital rectal examination was normal. Olympus CF 160 video colonoscope was then inserted into the rectum and gradually advanced to the cecum without any difficulty. Careful examination was performed as the scope was gradually being withdrawn. The prep was excellent. The cecum, ascending colon, transverse colon, descending colon, rectum appeared normal. Scattered left-sided diverticulosis seen. Evidence of sigmoid colectomy with anastomosis located at 10 cm from the anal verge. Retroflexion was performed in the rectum and no lesions were noted. Patient tolerated the procedure well. Impression: 1. Upper endoscopy revealed multiple scattered nonbleeding angiectasia in the bulb and second part of the duodenum which were all cauterized using a gold probe followed by Endo Clip placement. 2. Colonoscopy revealed scattered sigmoid diverticulosis and evidence of sigmoid colectomy but no evidence of colorectal neoplasia Recommendations: Findings of this examination were discussed with the patient as well as her family. She was advised to follow-up with Dr. Moyer. Monitor CBC periodically. Continue iron supplements.
[2024-08-27 08:11] VITALS: BP 146/71; PULSE 71; RESP 16
== END ==
LOC: ORWHC2ENDO 06:27
PROVIDERS: ATTEND Internal Medicine Gastroenterology
DX: K57.30 Diverticulosis of large intestine without perforation or abscess without bleeding (principal); D50.9 Iron deficiency anemia, unspecified; Z85.048 Personal history of other malignant neoplasm of rectum, rectosigmoid junction, and anus; Z90.49 Acquired absence of other specified parts of digestive tract
CPT/HCPCS: 45378; 43255; 43270; J2704; J2003

== ENCOUNTER 2024-10-18 11:07 | Day surgery (SDC) | payer MEDICARE ==
[2024-10-18] MEDS: IV FLUID CONTINUATION 1,000 ML IV ONE (11:28)
[2024-10-18 11:31] VITALS: TEMP 97.6
[2024-10-18 11:51] LABS: Glucose,Whole Blood 106 mg/dL (70-110)
[2024-10-18] MEDS: LACTATED RINGERS 1,000 ML IV SCH (11:52)
[2024-10-18] MEDS ORDERED: PROPOFOL 10 MG/ML 20 ML VIAL IV ONE (12:05)
[2024-10-18] MEDS ORDERED: LIDOCAINE 1% INJ 10MG/ML (20 ML MDV) ONE (12:05)
[2024-10-18 12:33] LABS: Basophils # (A) 0.05 10*3/uL (0.00-0.10); Basophils % (A) 1.1 %; Eosinophils # (A) 0.08 10*3/uL (0.04-0.35); Eosinophils % (A) 1.7 %; HCT 25.4 % (37.2-46.3); HGB 7.4 g/dL (12.0-15.0); Lymphocytes # (A) 0.86 10*3/uL (0.90-5.00); Lymphocytes % (A) 18.4 %; MCH 19.3 pg (27.0-32.0); MCHC 29.1 g/dL (32.0-37.0); MCV 66.1 fL (80.0-97.0); Mean Platelet Volume 9.7 fL (9.5-12.2); Monocytes # (A) 0.43 10*3/uL (0.20-1.00); Monocytes % (A) 9.2 %; Neutrophils # (A) 3.25 10*3/uL (1.80-7.70); Neutrophils % (A) 69.4 %; Platelet Count 261 10*3/uL (140-440); RBC 3.84 10*6/uL (4.10-5.20); RDW 19.7 % (11.5-14.5); WBC 4.68 10*3/uL (4.50-10.00)
[2024-10-18 12:55] VITALS: BP 150/70; PULSE 73; RESP 16
--- NOTE | 2024-10-18 14:38 | OP ---
OPERATIVE REPORT DATE OF SERVICE : PROCEDURE: Bone marrow aspirate and biopsy. INDICATION: History of small lymphocytic lymphoma, progressing anemia. DESCRIPTION OF PROCEDURE: After obtaining consent from the patient, the procedure was performed in the endoscopy suite under general sedation performed by anesthesia team. The patient was put in the left lateral decubitus position. The right posterior superior iliac crest was localized. Skin was prepped with ChloraPrep. All sterile procedures were followed, about 1.5 mL of 2% xylocaine was used for local anesthetic. Jamshidi needle was inserted, 20 mL aspirate and 1 cm core biopsy was obtained without any difficulties. Pressure applied afterwards. There was negligible blood loss. The patient tolerated the procedure very well without any immediate complications. MMODL / IJN: [id number] /
[2024-10-18 15:13] LABS: Reticulocyte % 2.37 % (0.10-1.80)
== END 2024-10-18 13:13 | disposition home or self-care (01) ==
LOC: OR 11:07
PROVIDERS: ATTEND Internal Medicine Hematology & Oncology
DX: D50.9 Iron deficiency anemia, unspecified (principal); I10 Essential (primary) hypertension; E11.9 Type 2 diabetes mellitus without complications; E78.5 Hyperlipidemia, unspecified; E03.9 Hypothyroidism, unspecified; G47.419 Narcolepsy without cataplexy; I71.9 Aortic aneurysm of unspecified site, without rupture; J44.89 Other specified chronic obstructive pulmonary disease; K21.9 Gastro-esophageal reflux disease without esophagitis; Z79.82 Long term (current) use of aspirin; Z79.890 Hormone replacement therapy; Z79.84 Long term (current) use of oral hypoglycemic drugs; Z79.899 Other long term (current) drug therapy; Z87.891 Personal history of nicotine dependence; Z85.72 Personal history of non-Hodgkin lymphomas; Z86.73 Personal history of transient ischemic attack (TIA), and cerebral infarction without residual deficits; Z85.038 Personal history of other malignant neoplasm of large intestine; Z85.118 Personal history of other malignant neoplasm of bronchus and lung; Z85.6 Personal history of leukemia; Z86.718 Personal history of other venous thrombosis and embolism
CPT/HCPCS: 85025; 85045; 38222; J2003; J2704

== ENCOUNTER → 2024-11-01 | Outpatient (CLI) | payer MEDICARE ==
[2024-11-01 11:56] LABS: African American GFR (CKD) 45 (>60 ml/min/1.73 sqM); Blood Urea Nitrogen 26 mg/dL (7-17); Non-African American GFR(CKD) 39 (>60 ml/min/1.73 sqM)
--- NOTE | 2024-11-01 15:17 | CT ---
EXAMINATION TYPE: CT chest w con DATE OF EXAM: 11/01/2024 12:34 PM COMPARISON: PET 07/02/2024, chest 06/14/2024 CLINICAL INDICATION: Female, 84 years old with history of C34.31 LUNG CANCER; PHH, Lung CA. TECHNIQUE: Multiple axial images were obtained through the chest. Sagittal and coronal reformats were created for review. MIP was performed on a separate workstation. Contrast used:80 ml mL of Isovue 300 with IV Contrast (None if empty) Oral contrast used: (None if empty) CT DLP: 317.1 mGycm, Automated exposure control for dose reduction was used. FINDINGS: LUNGS/ PLEURA: Right lower lobe superior segment mass is new from prior now measuring up to 32 x 25 m m moderate emphysema changes. Previously there is tube FDG avid pulmonary nodules in this location. P rior left lower lobe nodule seen on PET is not visualized. Right upper lobe airspace consolidation co mpatible with infection on prior PET is no longer visualized. Right upper lobe lateral pulmonary nodu le is unchanged measuring 4 mm series 3 image 20. AIRWAY: Patent and unremarkable. HEART: Cardiomegaly is demonstrated. Severe coronary artery calcifications present. MEDIASTINUM: AP window lymph node are present measuring up to 9 mm VASCULATURE: No aortic aneurysm. MUSCULOSKELETAL: No acute osseous abnormalities SOFT TISSUES/LYMPH NODES: * Enlarged lymph nodes are seen bilaterally in the axilla measuring up tor 24 mm on the left and 15 mm on the right. * Left supraclavicular lymph node measuring 14 mm. * Right supraclavicular lymph node measuring 8 mm. * Multiple calcified lesions are seen in the left breast. LOWER NECK: No significant findings. UPPER ABDOMEN: Left adrenal nodule measuring up tor 17 mm. Retroperitoneal lymph nodes are also prese nt throughout the upper abdomen measuring up to 10 mm. IMPRESSION: 1. Increased right lower lobe superior segment pulmonary nodule/consolidation. Unclear if this progr ession of disease are also obstructive consolidation and/or posttreatment change. This is in the area of prior to FDG avid pulmonary nodules. 2. Additionally scattered intrathoracic lower neck, axillary, upper abdominal lymph nodes compatible with metastatic disease. Lymph nodes are not that different from immediate prior. Given differences in technique and slice selection. 3. Similar stable left adrenal FDG avid nodule likely representing metastatic disease. 4. Mild cardiomegaly 5. Severe coronary artery atherosclerosis. [facility], , 11/01/2024 3:15 PM
== END | disposition home or self-care (01) ==
LOC: RADCTMAIN 11:24
PROVIDERS: ATTEND Internal Medicine Hematology & Oncology
DX: C34.31 Malignant neoplasm of lower lobe, right bronchus or lung (principal); I25.10 Atherosclerotic heart disease of native coronary artery without angina pectoris; R91.1 Solitary pulmonary nodule; I51.7 Cardiomegaly
CPT/HCPCS: 82565; 84520; 71260; 36415; Q9967